=== PATIENT | male | born 1995 | race Caucasian/White ===

== ENCOUNTER 2017-02-21 11:52 | Inpatient (IN) | payer SELFPAY ==
[~2017-02-21] VITALS: Ht 177.8 cm; Wt 79.4 kg
[2017-02-21] MEDS ORDERED: IV NORMAL SALINE 1000ML BAG 1,000 ML IV SCH (12:31)
--- NOTE | 2017-02-21 12:32 | PHYS DOC ---
Adult General Chief Complaint Chief Complaint: NAUSEA/VOMITING/DIARRHA HPI HPI Patient is a 21 year old male who presents with nausea vomiting left sided abdominal pain. He states nausea started last night when he is at [employer] eating and then this morning he started vomiting again with left lower quadrant abdominal pain. He states this is exact same thing happen before when his diverticulitis flared up. He denies any history of surgeries. He denies any other past medical problems. He denies any allergies to meds. She denies any fevers chills. He is constant is located on his left side, nothing makes it better or worse. Review of Systems Review of Systems Constitutional: Denies fever or chills [] Eyes: Denies change in visual acuity, redness, or eye pain [] HENT: Denies nasal congestion or sore throat [] Respiratory: Denies cough or shortness of breath [] Cardiovascular: No additional information not addressed in HPI [] GI: Positive for abdominal pain, nausea, vomiting, Denies bloody stools or diarrhea [] : Denies dysuria or hematuria [] Musculoskeletal: Denies back pain or joint pain [] Integument: Denies rash or skin lesions [] Neurologic: Denies headache, focal weakness or sensory changes [] Endocrine: Denies polyuria or polydipsia [] Current Medications Current Medications Current Medications Medications (Trade) Dose Ordered Sig/Mahesh Start Time Stop Time Status Last Admin Dose Admin Info (Do NOT chart on this entry -- for MONITORING) 1 each PRN DAILY PRN 02/21/17 13:30 02/23/17 13:29 Iohexol (Omnipaque 240 Mg/ml) 50 ml 1X ONCE 02/21/17 13:30 02/21/17 13:31 DC 02/21/17 13:57 50 ML Iohexol (Omnipaque 300 Mg/ml) 75 ml 1X ONCE 02/21/17 13:30 02/21/17 13:31 DC 02/21/17 13:57 75 ML Morphine Sulfate 2 mg PRN Q15MIN PRN 02/21/17 12:45 02/22/17 12:44 02/21/17 14:12 2 MG Ondansetron HCl (Zofran) 4 mg 1X ONCE 02/21/17 14:45 02/21/17 14:46 DC 02/21/17 14:43 4 MG Sodium Chloride 1,000 ml @ 1,000 mls/hr Q1H 02/21/17 12:31 02/21/17 13:30 DC 02/21/17 12:47 1,000 MLS/HR Allergies Allergies Allergies Coded Allergies Type Severity Reaction Last Updated Verified No Known Drug Allergies 02/21/17 No Physical Exam Physical Exam Constitutional: Well developed, well nourished, no acute distress, non-toxic appearance. [] HENT: Normocephalic, atraumatic, bilateral external ears normal, oropharynx moist, no oral exudates, nose normal. [] Eyes: PERRLA, EOMI, conjunctiva normal, no discharge. [] Neck: Normal range of motion, no tenderness, supple, no stridor. [] Cardiovascular:Heart rate regular rhythm, no murmur [] Lungs & Thorax: Bilateral breath sounds clear to auscultation [] Abdomen: Bowel sounds hyperactive, soft, moderately tender palpation left upper and lower quadrant, no rebound or guarding, no masses, no pulsatile masses. [] Skin: Warm, dry, no erythema, no rash. [] Back: No tenderness, no CVA tenderness. [] Extremities: No tenderness, no cyanosis, no clubbing, ROM intact, no edema. [] Neurologic: Alert and oriented X 3, normal motor function, normal sensory function, no focal deficits noted. [] Psychologic: Affect normal, judgement normal, mood normal. [] Current Patient Data Vital Signs Vital Signs Date Time Temp Pulse Resp B/P (MAP) Pulse Ox O2 Delivery O2 Flow Rate FiO2 02/21/17 14:12 16 98 Room Air 02/21/17 14:07 62 133/73 (93) 02/21/17 12:10 98.9 98.9 Lab Values Laboratory Tests Test 02/21/17 12:28 02/21/17 14:21 White Blood Count 10.1 x10^3/uL (4.0-11.0) Red Blood Count 5.19 x10^6/uL (4.30-5.70) Hemoglobin 15.7 g/dL (13.0-17.5) Hematocrit 46.8 % (39.0-53.0) Mean Corpuscular Volume 90 fL (79-100) Mean Corpuscular Hemoglobin 30 pg (25-35) Mean Corpuscular Hemoglobin Concent 34 g/dL (31-37) Red Cell Distribution Width 13.0 % (11.5-14.5) Platelet Count 257 x10^3/uL (140-400) Neutrophils (%) (Auto) 76 % (31-73) H Lymphocytes (%) (Auto) 17 % (24-48) L Monocytes (%) (Auto) 6 % (0-9) Eosinophils (%) (Auto) 1 % (0-3) Basophils (%) (Auto) 1 % (0-3) Neutrophils # (Auto) 7.7 x10^3uL (1.8-7.7) Lymphocytes # (Auto) 1.7 x10^3/uL (1.0-4.8) Monocytes # (Auto) 0.6 x10^3/uL (0.0-1.1) Eosinophils # (Auto) 0.1 x10^3/uL (0.0-0.7) Basophils # (Auto) 0.0 x10^3/uL (0.0-0.2) Prothrombin Time 13.5 SEC (11.7-14.0) Prothrombin Time INR 1.1 (0.8-1.1) PTT 32 SEC (24-38) Sodium Level 140 mmol/L (136-145) Potassium Level 3.8 mmol/L (3.5-5.1) Chloride Level 104 mmol/L (98-107) Carbon Dioxide Level 29 mmol/L (21-32) Anion Gap 7 (6-14) Blood Urea Nitrogen 8 mg/dL (8-26) Creatinine 0.8 mg/dL (0.7-1.3) Estimated GFR (Cockcroft-Gault) 119.8 Glucose Level 93 mg/dL (70-99) Calcium Level 8.8 mg/dL (8.5-10.1) Total Bilirubin 1.1 mg/dL (0.2-1.0) H Direct Bilirubin 0.2 mg/dL (0.0-0.2) Aspartate Amino Transferase (AST) 15 U/L (15-37) Alanine Aminotransferase (ALT) 16 U/L (16-63) Alkaline Phosphatase 48 U/L (46-116) Creatine Kinase 121 U/L (39-308) Creatine Kinase MB (Mass) < 0.5 ng/mL (0.0-3.6) Creatine Kinase MB Relative Index % (0-4) Total Protein 7.4 g/dL (6.4-8.2) Albumin 4.1 g/dL (3.4-5.0) Lipase 88 U/L (73-393) Urine Collection Type Unknown Urine Color Yellow Urine Clarity Clear Urine pH 7.0 Urine Specific Bee[place] >=1.030 Urine Protein Negative mg/dL (NEG-TRACE) Urine Glucose (UA) Negative mg/dL (NEG) Urine Ketones (Stick) Trace mg/dL (NEG) Urine Blood Negative (NEG) Urine Nitrite Negative (NEG) Urine Bilirubin Negative (NEG) Urine Urobilinogen Dipstick 1.0 mg/dL (0.2 mg/dL) Urine Leukocyte Esterase Negative (NEG) Urine RBC Occ /HPF (0-2) Urine WBC 0 /HPF (0-4) Urine Squamous Epithelial Cells Occ /LPF Urine Bacteria 0 /HPF (0-FEW) Urine Mucus Mod /LPF Urine Opiates Screen Pos (NEG) Urine Methadone Screen Neg (NEG) Urine Barbiturates Neg (NEG) Urine Phencyclidine Screen Neg (NEG) Urine Amphetamine/Methamphetamine Neg (NEG) Urine Benzodiazepines Screen Neg (NEG) Urine Cocaine Screen Neg (NEG) Urine Cannabinoids Screen Pos (NEG) Urine Ethyl Alcohol Neg (NEG) Laboratory Tests 02/21/17 12:28 Laboratory Tests 02/21/17 12:28 EKG EKG [] Radiology/Procedures Radiology/Procedures [facility] [address] [place], [place] [id number] IMAGING REPORT Signed PATIENT: CHRISTY ENAMORADO ACCOUNT: [id number] : 1995 LOCATION: ER AGE: 21 SEX: M EXAM STATUS: REG ER ORD. PHYSICIAN: HAILEY MARTINEZ MD REASON: left sided abd pain PROCEDURE: CT ABD PELV W/ORAL&IV CONTRAST Examination: CT of the abdomen and pelvis with oral and IV contrast History: History of left-sided abdominal pain. Comparison: None available Technique: Axial CT images of the abdomen pelvis were performed with oral and IV contrast. Coronal and sagittal reformats was performed PQRS Compliance Statement: One or more of the following individualized dose reduction techniques were utilized for this examination: 1. Automated exposure control 2. Adjustment of the mA and/or kV according to patient size 3. Use of iterative reconstruction technique Findings: The visualized bibasal lungs grossly appears unremarkable. No evidence of free air identified in the abdomen. The visualized liver, spleen, adrenals grossly appears unremarkable. The gallbladder is mildly distended. The stomach is mildly distended. The visualized pancreas grossly appears unremarkable. The small bowel is nondilated. The appendix is not clearly identified however no evidence of inflammatory fat stranding identified in the right lower quadrant around the cecum. Feces and gas noted in the colon. There is minimal questionable stranding identified about the distal sigmoid colon region. The urinary bladder is mildly distended. The bilateral kidneys enhance symmetrically. The caliber of the aorta grossly appears unremarkable. No evidence of lytic bony destructive lesion. Impression: 1. Mild questionable fat stranding identified about the sigmoid colon could be nondistention or mild colitis. DICTATED and SIGNED BY: HILDA YEUNG MD DATE: 02/21/17 7827 CC: HAILEY MARTINEZ MD; NO PCP ~ Impressions: Nausea vomiting Abdominal pain Course & Med Decision Making Course & Med Decision Making Pertinent Labs and Imaging studies reviewed. (See chart for details) Labs do not show any acute abnormality's. On CT scan shows mild colitis of the sigmoid colon. We'll start Cipro Flagyl and admit for uncontrolled nausea vomiting and abdominal pain. Patient is being admitted to the hospitalist in stable condition this time. Dragon Disclaimer Dragon Disclaimer This electronic medical record was generated, in whole or in part, using a voice recognition dictation system. Departure Departure Impression: Primary Impression: Abdominal pain Disposition: ADMITTED INPATIENT Admitting Physician: Janeth Shetty Condition: STABLE Referrals: NO PCP (PCP) Problem Qualifiers Primary Impression: Abdominal pain Abdominal location: unspecified location Qualified Codes: R10.9 - Unspecified abdominal pain HAIELY MARTINEZ MD Feb 21, 2017 12:32
[2017-02-21] MEDS ORDERED: ONDANSETRON PF 4 MG/2 ML VIAL. IV ONE ×2 (12:45→14:45)
[2017-02-21] MEDS: MORPHINE SULFATE 4 MG/ML DISP.SYRIN. IV/SQ PRN ×2 (12:47→14:12)
[2017-02-21 12:48] LABS: BASO % 1 % (0-3); EOS % 1 % (0-3); HEMATOCRIT 46.8 % (39.0-53.0); HEMOGLOBIN 15.7 g/dL (13.0-17.5); LYMPH # 1.7 x10^3/uL (1.0-4.8); LYMPH % 17 % (24-48); MEAN CORPUSCULAR HEMOGLOBIN 30 pg (25-35); MEAN CORPUSCULAR HGB CONC 34 g/dL (31-37); MEAN CORPUSCULAR VOLUME 90 fL (79-100); MONO % 6 % (0-9); NEUT % 76 % (31-73); PLATELET COUNT 257 x10^3/uL (140-400); RED BLOOD COUNT 5.19 x10^6/uL (4.30-5.70); WHITE BLOOD COUNT 10.1 x10^3/uL (4.0-11.0)
[2017-02-21 12:54] LABS: CALCIUM 8.8 mg/dL (8.5-10.1); CREATININE 0.8 mg/dL (0.7-1.3); GFR 119.8; POTASSIUM 3.8 mmol/L (3.5-5.1)
[2017-02-21 12:57] LABS: INR 1.1 (0.8-1.1); PROTHROMBIN TIME PATIENT 13.5 SEC (11.7-14.0)
[2017-02-21 13:01] LABS: ALBUMIN 4.1 g/dL (3.4-5.0); DIRECT BILIRUBIN 0.2 mg/dL (0.0-0.2); TOTAL BILIRUBIN 1.1 mg/dL (0.2-1.0); TOTAL PROTEIN 7.4 g/dL (6.4-8.2)
[2017-02-21 13:09] LABS: CKMB MASS < 0.5 ng/mL (0.0-3.6); CREATINE KINASE 121 U/L (39-308)
[2017-02-21] MEDS ORDERED: IOHEXOL 240 MG/ML 50ML VIAL. PO ONE (13:30)
[2017-02-21] MEDS ORDERED: IOHEXOL 300 MG/ML 75 ML VIAL IV ONE (13:30)
[2017-02-21] MEDS ORDERED: CONTRAST GIVEN MC PRN (13:30)
--- NOTE | 2017-02-21 14:24 | RAD ---
Examination: CT of the abdomen and pelvis with oral and IV contrast History: History of left-sided abdominal pain. Comparison: None available Technique: Axial CT images of the abdomen pelvis were performed with oral and IV contrast. Coronal and sagittal reformats was performed PQRS Compliance Statement: One or more of the following individualized dose reduction techniques were utilized for this examination: 1. Automated exposure control 2. Adjustment of the mA and/or kV according to patient size 3. Use of iterative reconstruction technique Findings: The visualized bibasal lungs grossly appears unremarkable. No evidence of free air identified in the abdomen. The visualized liver, spleen, adrenals grossly appears unremarkable. The gallbladder is mildly distended. The stomach is mildly distended. The visualized pancreas grossly appears unremarkable. The small bowel is nondilated. The appendix is not clearly identified however no evidence of inflammatory fat stranding identified in the right lower quadrant around the cecum. Feces and gas noted in the colon. There is minimal questionable stranding identified about the distal sigmoid colon region. The urinary bladder is mildly distended. The bilateral kidneys enhance symmetrically. The caliber of the aorta grossly appears unremarkable. No evidence of lytic bony destructive lesion. Impression: 1. Mild questionable fat stranding identified about the sigmoid colon could be nondistention or mild colitis.
[2017-02-21 14:28] LABS: BILIRUBIN,URINE NEGATIVE (NEG); GLUCOSE,URINE NEGATIVE (NEG); NITRITE,URINE NEGATIVE (NEG); PROTEIN,URINE NEGATIVE (NEG-TRACE)
[2017-02-21 14:35] LABS: BACTERIA,URINE 0 /HPF (0-FEW); RBC,URINE OCC /HPF (0-2); SQUAMOUS EPITHELIAL CELL,UR OCC /LPF; WBC,URINE 0 /HPF (0-4)
[2017-02-21 14:38] LABS: BARBITURATES NEG (NEG); BENZODIAZEPINES NEG (NEG); CANNABINOIDS POS (NEG); COCAINE NEG (NEG); METHADONE NEG (NEG); OPIATES POS (NEG); PHENCYCLIDINE NEG (NEG)
[2017-02-21] MEDS ORDERED: CIPROFLOXACIN 400MG PREMIX 200 ML IV ONE (15:15)
[2017-02-21 16:31] VITALS: BP 113/61
[2017-02-21] MEDS ORDERED: hydrALAZINE 20 MG/ML VIAL. IVP PRN (16:45)
[2017-02-21] MEDS ORDERED: ACETAMINOPHEN 325 MG TABLET. PO PRN (16:45)
[2017-02-21] MEDS ORDERED: MORPHINE SULFATE 2 MG/ML DISP.SYRIN. IV PRN (16:45)
[2017-02-21] MEDS ORDERED: traMADol 50 MG TABLET PO PRN (16:45)
[2017-02-21] MEDS ORDERED: DOCUSATE SODIUM 100 MG CAPSULE. PO PRN (16:45)
--- NOTE | 2017-02-21 16:51 | PDOC1 ---
History and Physical Date of Admission Date of Admission 02/21/17 Identification/Chief Complaint Chief Complaint abd pain Problems: Source Source: Chart review, Patient History of Present Illness History of Present Illness Patient is a 21 year old male who presents with nausea vomiting left sided abdominal pain todaY. Pt is living in [facility] , coming here to visit his gf. He had similar abd pain before. The pain is located at LUQ, constant, 9/10, no radiation. He also had Nausea started from last night after eating some [employer] and then vomited today, non bloody or greenish. no diarrhea or constipation. takes NSADS sometime. He said he also has severe acid reflux, but doesnot like to go to [facility] or takes any meds for it. Had EGD done for this similar LUQ pain before, was told neg. He also was diagnosed with diverticulitis before, with similar LUQ pain, started 2 years ago, last time was last year. no fever, chills, but has some cough with yellowish sputum today, with sore throat, no runny nose, denies sick contact. 1PPD, [address] showed ? sigmoid colitis Past Medical History Past Medical History diverticulitis Past Surgical History Past Surgical History: No pertinent history Family History Family History: Hypertension Social History Smoke: 1 pack per day ALCOHOL: heavy Drugs: Marijuana Current Problem List Problem List Problems Medical Problems: (1) Abdominal pain Status: Acute Current Medications Current Medications Current Medications Medications (Trade) Dose Ordered Sig/Mahesh Start Time Stop Time Status Last Admin Dose Admin Ciprofloxacin/ Dextrose 200 ml @ 200 mls/hr 1X ONCE 02/21/17 15:15 02/21/17 16:14 DC Info (Do NOT chart on this entry -- for MONITORING) 1 each PRN DAILY PRN 02/21/17 13:30 02/23/17 13:29 Iohexol (Omnipaque 240 Mg/ml) 50 ml 1X ONCE 02/21/17 13:30 02/21/17 13:31 DC 02/21/17 13:57 50 ML Iohexol (Omnipaque 300 Mg/ml) 75 ml 1X ONCE 02/21/17 13:30 02/21/17 13:31 DC 02/21/17 13:57 75 ML Metronidazole 100 ml @ 100 mls/hr 1X ONCE 02/21/17 15:15 02/21/17 16:14 DC Morphine Sulfate 2 mg PRN Q15MIN PRN 02/21/17 12:45 02/22/17 12:44 02/21/17 14:12 2 MG Ondansetron HCl (Zofran) 4 mg 1X ONCE 02/21/17 14:45 02/21/17 14:46 DC 02/21/17 14:43 4 MG Sodium Chloride 1,000 ml @ 1,000 mls/hr Q1H 02/21/17 12:31 02/21/17 13:30 DC 02/21/17 12:47 1,000 MLS/HR Allergies Allergies Allergies Coded Allergies Type Severity Reaction Last Updated Verified No Known Drug Allergies 02/21/17 No ROS Review of System CONSTITUTIONAL: No fever or chills EYES: No recent changes SKIN: No rash or itching CARDIOVASCULAR: No chest pain, syncope, palpitations, or edema RESPIRATORY: No SOB or cough GASTROINTESTINAL: No nausea, vomiting or abdominal pain NEUROLOGICAL: No headaches or weakness ENDOCRINE: No cold or heat intolerance GENITOURINARY: No urgency or frequency of urination MUSCULOSKELETAL: No back pain or joint pain LYMPHATICS: No enlarged lymph nodes PSYCHIATRIC: No anxiety or depression Physical Exam Physical Exam GEN.: No apparent distress. Alert and oriented. HEENT: Head is normocephalic, atraumatic NECK: Supple. LUNGS: Clear to auscultation. HEART: RRR, S1, S2 present. Peripheral pulses intact ABDOMEN: Soft Positive bowel sounds. LUQ moderate tenderness, no guarding or rebound. EXTREMITIES: Without any cyanosis. NEUROLOGIC: Normal speech, normal tone PSYCHIATRIC: Normal affect, normal mood. SKIN: No ulcerations Vitals Vitals Vital Signs Date Time Temp Pulse Resp B/P (MAP) Pulse Ox O2 Delivery O2 Flow Rate FiO2 02/21/17 15:07 66 132/83 (99) 96 Room Air 02/21/17 14:12 16 02/21/17 12:10 98.9 98.9 Labs Labs Laboratory Tests Test 02/21/17 12:28 02/21/17 14:21 White Blood Count 10.1 x10^3/uL (4.0-11.0) Red Blood Count 5.19 x10^6/uL (4.30-5.70) Hemoglobin 15.7 g/dL (13.0-17.5) Hematocrit 46.8 % (39.0-53.0) Mean Corpuscular Volume 90 fL (79-100) Mean Corpuscular Hemoglobin 30 pg (25-35) Mean Corpuscular Hemoglobin Concent 34 g/dL (31-37) Red Cell Distribution Width 13.0 % (11.5-14.5) Platelet Count 257 x10^3/uL (140-400) Neutrophils (%) (Auto) 76 % (31-73) Lymphocytes (%) (Auto) 17 % (24-48) Monocytes (%) (Auto) 6 % (0-9) Eosinophils (%) (Auto) 1 % (0-3) Basophils (%) (Auto) 1 % (0-3) Neutrophils # (Auto) 7.7 x10^3uL (1.8-7.7) Lymphocytes # (Auto) 1.7 x10^3/uL (1.0-4.8) Monocytes # (Auto) 0.6 x10^3/uL (0.0-1.1) Eosinophils # (Auto) 0.1 x10^3/uL (0.0-0.7) Basophils # (Auto) 0.0 x10^3/uL (0.0-0.2) Prothrombin Time 13.5 SEC (11.7-14.0) Prothromb Time International Ratio 1.1 (0.8-1.1) Activated Partial Thromboplast Time 32 SEC (24-38) Sodium Level 140 mmol/L (136-145) Potassium Level 3.8 mmol/L (3.5-5.1) Chloride Level 104 mmol/L (98-107) Carbon Dioxide Level 29 mmol/L (21-32) Anion Gap 7 (6-14) Blood Urea Nitrogen 8 mg/dL (8-26) Creatinine 0.8 mg/dL (0.7-1.3) Estimated GFR (Cockcroft-Gault) 119.8 Glucose Level 93 mg/dL (70-99) Calcium Level 8.8 mg/dL (8.5-10.1) Total Bilirubin 1.1 mg/dL (0.2-1.0) Direct Bilirubin 0.2 mg/dL (0.0-0.2) Aspartate Amino Transf (AST/SGOT) 15 U/L (15-37) Alanine Aminotransferase (ALT/SGPT) 16 U/L (16-63) Alkaline Phosphatase 48 U/L (46-116) Creatine Kinase 121 U/L (39-308) Creatine Kinase MB (Mass) < 0.5 ng/mL (0.0-3.6) Creatine Kinase MB Relative Index % (0-4) Total Protein 7.4 g/dL (6.4-8.2) Albumin 4.1 g/dL (3.4-5.0) Lipase 88 U/L (73-393) Urine Collection Type Unknown Urine Color Yellow Urine Clarity Clear Urine pH 7.0 Urine Specific [place] >=1.030 Urine Protein Negative mg/dL (NEG-TRACE) Urine Glucose (UA) Negative mg/dL (NEG) Urine Ketones (Stick) Trace mg/dL (NEG) Urine Blood Negative (NEG) Urine Nitrite Negative (NEG) Urine Bilirubin Negative (NEG) Urine Urobilinogen Dipstick 1.0 mg/dL (0.2 mg/dL) Urine Leukocyte Esterase Negative (NEG) Urine RBC Occ /HPF (0-2) Urine WBC 0 /HPF (0-4) Urine Squamous Epithelial Cells Occ /LPF Urine Bacteria 0 /HPF (0-FEW) Urine Mucus Mod /LPF Urine Opiates Screen Pos (NEG) Urine Methadone Screen Neg (NEG) Urine Barbiturates Neg (NEG) Urine Phencyclidine Screen Neg (NEG) Urine Amphetamine/Methamphetamine Neg (NEG) Urine Benzodiazepines Screen Neg (NEG) Urine Cocaine Screen Neg (NEG) Urine Cannabinoids Screen Pos (NEG) Urine Ethyl Alcohol Neg (NEG) Laboratory Tests Test 02/21/17 12:28 02/21/17 14:21 White Blood Count 10.1 x10^3/uL (4.0-11.0) Red Blood Count 5.19 x10^6/uL (4.30-5.70) Hemoglobin 15.7 g/dL (13.0-17.5) Hematocrit 46.8 % (39.0-53.0) Mean Corpuscular Volume 90 fL (79-100) Mean Corpuscular Hemoglobin 30 pg (25-35) Mean Corpuscular Hemoglobin Concent 34 g/dL (31-37) Red Cell Distribution Width 13.0 % (11.5-14.5) Platelet Count 257 x10^3/uL (140-400) Neutrophils (%) (Auto) 76 % (31-73) Lymphocytes (%) (Auto) 17 % (24-48) Monocytes (%) (Auto) 6 % (0-9) Eosinophils (%) (Auto) 1 % (0-3) Basophils (%) (Auto) 1 % (0-3) Neutrophils # (Auto) 7.7 x10^3uL (1.8-7.7) Lymphocytes # (Auto) 1.7 x10^3/uL (1.0-4.8) Monocytes # (Auto) 0.6 x10^3/uL (0.0-1.1) Eosinophils # (Auto) 0.1 x10^3/uL (0.0-0.7) Basophils # (Auto) 0.0 x10^3/uL (0.0-0.2) Prothrombin Time 13.5 SEC (11.7-14.0) Prothromb Time International Ratio 1.1 (0.8-1.1) Activated Partial Thromboplast Time 32 SEC (24-38) Sodium Level 140 mmol/L (136-145) Potassium Level 3.8 mmol/L (3.5-5.1) Chloride Level 104 mmol/L (98-107) Carbon Dioxide Level 29 mmol/L (21-32) Anion Gap 7 (6-14) Blood Urea Nitrogen 8 mg/dL (8-26) Creatinine 0.8 mg/dL (0.7-1.3) Estimated GFR (Cockcroft-Gault) 119.8 Glucose Level 93 mg/dL (70-99) Calcium Level 8.8 mg/dL (8.5-10.1) Total Bilirubin 1.1 mg/dL (0.2-1.0) Direct Bilirubin 0.2 mg/dL (0.0-0.2) Aspartate Amino Transf (AST/SGOT) 15 U/L (15-37) Alanine Aminotransferase (ALT/SGPT) 16 U/L (16-63) Alkaline Phosphatase 48 U/L (46-116) Creatine Kinase 121 U/L (39-308) Creatine Kinase MB (Mass) < 0.5 ng/mL (0.0-3.6) Creatine Kinase MB Relative Index % (0-4) Total Protein 7.4 g/dL (6.4-8.2) Albumin 4.1 g/dL (3.4-5.0) Lipase 88 U/L (73-393) Urine Collection Type Unknown Urine Color Yellow Urine Clarity Clear Urine pH 7.0 Urine Specific [place]ifer >=1.030 Urine Protein Negative mg/dL (NEG-TRACE) Urine Glucose (UA) Negative mg/dL (NEG) Urine Ketones (Stick) Trace mg/dL (NEG) Urine Blood Negative (NEG) Urine Nitrite Negative (NEG) Urine Bilirubin Negative (NEG) Urine Urobilinogen Dipstick 1.0 mg/dL (0.2 mg/dL) Urine Leukocyte Esterase Negative (NEG) Urine RBC Occ /HPF (0-2) Urine WBC 0 /HPF (0-4) Urine Squamous Epithelial Cells Occ /LPF Urine Bacteria 0 /HPF (0-FEW) Urine Mucus Mod /LPF Urine Opiates Screen Pos (NEG) Urine Methadone Screen Neg (NEG) Urine Barbiturates Neg (NEG) Urine Phencyclidine Screen Neg (NEG) Urine Amphetamine/Methamphetamine Neg (NEG) Urine Benzodiazepines Screen Neg (NEG) Urine Cocaine Screen Neg (NEG) Urine Cannabinoids Screen Pos (NEG) Urine Ethyl Alcohol Neg (NEG) VTE Prophylaxis Ordered VTE Prophylaxis Devices: Yes VTE Pharmacological Prophylaxi: Yes Assessment/Plan Assessment/Plan LUQ pain, 2/2 gastris vs. ulcer vs. GERD CT showed ? sigmoid colitis, less likely the reason causing this abd pain h/o diverticulitis drug abuse with marijuana heavy drinker tobaccoism GERD plan: gi consult add protonix daily cont cipro, flagyl for now, wean soon ivf, clear liquid for now pain control vitb1, FA daily, ativan prn dvt ppx BRENNAN GAONA MD Feb 21, 2017 16:50
[2017-02-21] MEDS: HYDROcodone/APAP 5/325MG 1 TAB TABLET PO PRN ×2 (17:45→22:07)
[2017-02-21] MEDS ORDERED: ALBUTEROL SULFATE 2.5 MG/3 ML NEBU. NEB PRN (18:30)
[2017-02-21] MEDS ORDERED: guaiFENesin ORAL 200 MG/10 ML LIQUID. PO PRN (18:30)
[2017-02-21 19:00] VITALS: BP 103/56
[2017-02-21] MEDS: THIAMINE 100 MG TABLET. PO SCH (20:59)
[2017-02-21] MEDS: PANTOPRAZOLE 40 MG TABLET.DR. PO SCH (20:59)
[2017-02-21] MEDS: FOLIC ACID 1 MG TABLET. PO SCH (20:59)
[2017-02-21] MEDS: IV NORMAL SALINE 1000ML BAG 1,000 ML IV SCH (21:01)
[2017-02-21 23:00] VITALS: BP 102/48
[2017-02-21] MEDS: MORPHINE SULFATE 4 MG/ML DISP.SYRIN. IV PRN (23:31)
[2017-02-22 03:00] VITALS: BP 97/47
[2017-02-22 05:52] LABS: BASO % 1 % (0-3); EOS % 4 % (0-3); HEMATOCRIT 45.5 % (39.0-53.0); HEMOGLOBIN 14.9 g/dL (13.0-17.5); LYMPH % 44 % (24-48); MEAN CORPUSCULAR HEMOGLOBIN 30 pg (25-35); MEAN CORPUSCULAR HGB CONC 33 g/dL (31-37); MEAN CORPUSCULAR VOLUME 91 fL (79-100); MONO % 10 % (0-9); NEUT % 42 % (31-73); PLATELET COUNT 241 x10^3/uL (140-400); RED BLOOD COUNT 4.98 x10^6/uL (4.30-5.70); RED CELL DISTRIBUTION WIDTH 13.2 % (11.5-14.5); WHITE BLOOD COUNT 6.7 x10^3/uL (4.0-11.0)
[2017-02-22 06:51] LABS: CALCIUM 8.3 mg/dL (8.5-10.1); CREATININE 0.9 mg/dL (0.7-1.3); GFR 104.6; POTASSIUM 4.3 mmol/L (3.5-5.1)
[2017-02-22 07:00] VITALS: BP 100/63
[2017-02-22] MEDS: ENOXAPARIN 40 MG/0.4 ML SYRINGE. SQ SCH (08:00)
[2017-02-22] MEDS: IV NORMAL SALINE 1000ML BAG 1,000 ML IV SCH ×3 (08:15→23:00)
[2017-02-22] MEDS: FOLIC ACID 1 MG TABLET. PO SCH (08:17)
[2017-02-22] MEDS: THIAMINE 100 MG TABLET. PO SCH (08:17)
[2017-02-22] MEDS: PANTOPRAZOLE 40 MG TABLET.DR. PO SCH (08:17)
[2017-02-22] MEDS: MORPHINE SULFATE 4 MG/ML DISP.SYRIN. IV PRN ×4 (08:20→21:43)
[2017-02-22] MEDS: ONDANSETRON PF 4 MG/2 ML VIAL. IV PRN ×2 (08:20→18:24)
[2017-02-22] MEDS: CIPROFLOXACIN 400MG PREMIX 200 ML IV SCH ×3 (08:21→22:32)
--- NOTE | 2017-02-22 08:38 | RAD ---
EXAM: Chest one view. HISTORY: Cough. COMPARISON: None. FINDINGS: A frontal view of the chest is obtained. There are no confluent infiltrates. There is no pneumothorax or pleural effusion. The heart is not enlarged. IMPRESSION: 1. No confluent infiltrates.
[2017-02-22] MEDS: HYDROcodone/APAP 5/325MG 1 TAB TABLET PO PRN ×3 (09:33→20:22)
--- NOTE | 2017-02-22 10:39 | PDOC2 ---
GI CONSULT Reason For Consult: Abd pain HPI: HPI: 21 y/o male w/ recurrent GI issues. Has been hospitalized twice previously, reports h/o SBO in [place] (required NG, surgery recommended but he refused ) and h/o diverticulitis. Has had previous EGD (last year he thinks), not sure of findings (although thinks "Vicodin messed me up.") Has also had gallbladder eval w/ US and probably PIPIDA (recalls nuclear med scan). Has chronic left- sided abd pain, comes and goes, worse w/ cold weather, sunflower sees, junk food , and spicy foods. Also intermittent n/v (food, bile). More recently has had daily reflux, untreated because he doesn't really like to take meds. Alternating bowel habits although recently has been having 1 stool daily. Had blood mixed w/ stools for 2 days 1 month ago. No regular NSAID use. Lives in this area, travels for work. Recently treated w/ Keflex and another antibiotic for left index finger injury, took atbx for a couple days and stopped. Worsening left-sided pain w/ n/v since Wednesday, no precipitating events. (Chart indicates ate at [employer] - apparently ate there after was feeling bad.) CT w/ mild questionable fat stranding identified about the sigmoid colon could be nondistention or mild colitis. On IV Cipro and Flagyl, also PO PPI. Vomited earlier after drinking broth. Ongoing left-sided pain. PMH: PMH: diverticulitis, SBO, right wrist surgery w/ hardware FH: Family History: Other (father - stomach issues, grandmother - GB disease, sister - lupus) Social History: Smoke: 1 pack per day ALCOHOL: other (about 1 beer daily) Drugs: Marijuana (4 times yearly) ROS: GEN: Denies fevers, chills, sweats HEENT: Denies blurred vision, sore throat CV: Denies chest pain RESP: Denies shortness of air, cough GI: Per HPI : Denies hematuria, dysuria ENDO: Denies weight changes NEURO: Denies confusion, dizziness MSK: Denies weakness, joint pain/swelling SKIN: Denies jaundice, pruritus Vitals: Vitals: Vital Signs Date Time Temp Pulse Resp B/P (MAP) Pulse Ox O2 Delivery O2 Flow Rate FiO2 02/22/17 09:33 16 Room Air 02/22/17 07:00 97.7 58 100/63 (75) 97 97.7 Labs: Labs: Laboratory Tests Test 02/21/17 12:28 02/21/17 14:21 02/22/17 05:20 White Blood Count 10.1 x10^3/uL (4.0-11.0) 6.7 x10^3/uL (4.0-11.0) Red Blood Count 5.19 x10^6/uL (4.30-5.70) 4.98 x10^6/uL (4.30-5.70) Hemoglobin 15.7 g/dL (13.0-17.5) 14.9 g/dL (13.0-17.5) Hematocrit 46.8 % (39.0-53.0) 45.5 % (39.0-53.0) Mean Corpuscular Volume 90 fL (79-100) 91 fL (79-100) Mean Corpuscular Hemoglobin 30 pg (25-35) 30 pg (25-35) Mean Corpuscular Hemoglobin Concent 34 g/dL (31-37) 33 g/dL (31-37) Red Cell Distribution Width 13.0 % (11.5-14.5) 13.2 % (11.5-14.5) Platelet Count 257 x10^3/uL (140-400) 241 x10^3/uL (140-400) Neutrophils (%) (Auto) 76 % (31-73) 42 % (31-73) Lymphocytes (%) (Auto) 17 % (24-48) 44 % (24-48) Monocytes (%) (Auto) 6 % (0-9) 10 % (0-9) Eosinophils (%) (Auto) 1 % (0-3) 4 % (0-3) Basophils (%) (Auto) 1 % (0-3) 1 % (0-3) Neutrophils # (Auto) 7.7 x10^3uL (1.8-7.7) 2.8 x10^3uL (1.8-7.7) Lymphocytes # (Auto) 1.7 x10^3/uL (1.0-4.8) 3.0 x10^3/uL (1.0-4.8) Monocytes # (Auto) 0.6 x10^3/uL (0.0-1.1) 0.6 x10^3/uL (0.0-1.1) Eosinophils # (Auto) 0.1 x10^3/uL (0.0-0.7) 0.2 x10^3/uL (0.0-0.7) Basophils # (Auto) 0.0 x10^3/uL (0.0-0.2) 0.0 x10^3/uL (0.0-0.2) Prothrombin Time 13.5 SEC (11.7-14.0) Prothromb Time International Ratio 1.1 (0.8-1.1) Activated Partial Thromboplast Time 32 SEC (24-38) Sodium Level 140 mmol/L (136-145) 142 mmol/L (136-145) Potassium Level 3.8 mmol/L (3.5-5.1) 4.3 mmol/L (3.5-5.1) Chloride Level 104 mmol/L (98-107) 107 mmol/L (98-107) Carbon Dioxide Level 29 mmol/L (21-32) 29 mmol/L (21-32) Anion Gap 7 (6-14) 6 (6-14) Blood Urea Nitrogen 8 mg/dL (8-26) 7 mg/dL (8-26) Creatinine 0.8 mg/dL (0.7-1.3) 0.9 mg/dL (0.7-1.3) Estimated GFR (Cockcroft-Gault) 119.8 104.6 Glucose Level 93 mg/dL (70-99) 86 mg/dL (70-99) Calcium Level 8.8 mg/dL (8.5-10.1) 8.3 mg/dL (8.5-10.1) Total Bilirubin 1.1 mg/dL (0.2-1.0) Direct Bilirubin 0.2 mg/dL (0.0-0.2) Aspartate Amino Transf (AST/SGOT) 15 U/L (15-37) Alanine Aminotransferase (ALT/SGPT) 16 U/L (16-63) Alkaline Phosphatase 48 U/L (46-116) Creatine Kinase 121 U/L (39-308) Creatine Kinase MB (Mass) < 0.5 ng/mL (0.0-3.6) Creatine Kinase MB Relative Index % (0-4) Total Protein 7.4 g/dL (6.4-8.2) Albumin 4.1 g/dL (3.4-5.0) Lipase 88 U/L (73-393) Urine Collection Type Unknown Urine Color Yellow Urine Clarity Clear Urine pH 7.0 Urine Specific [place] >=1.030 Urine Protein Negative mg/dL (NEG-TRACE) Urine Glucose (UA) Negative mg/dL (NEG) Urine Ketones (Stick) Trace mg/dL (NEG) Urine Blood Negative (NEG) Urine Nitrite Negative (NEG) Urine Bilirubin Negative (NEG) Urine Urobilinogen Dipstick 1.0 mg/dL (0.2 mg/dL) Urine Leukocyte Esterase Negative (NEG) Urine RBC Occ /HPF (0-2) Urine WBC 0 /HPF (0-4) Urine Squamous Epithelial Cells Occ /LPF Urine Bacteria 0 /HPF (0-FEW) Urine Mucus Mod /LPF Urine Opiates Screen Pos (NEG) Urine Methadone Screen Neg (NEG) Urine Barbiturates Neg (NEG) Urine Phencyclidine Screen Neg (NEG) Urine Amphetamine/Methamphetamine Neg (NEG) Urine Benzodiazepines Screen Neg (NEG) Urine Cocaine Screen Neg (NEG) Urine Cannabinoids Screen Pos (NEG) Urine Ethyl Alcohol Neg (NEG) Allergies: Coded Allergies: tramadol (Verified Adverse Reaction, Intermediate, Unknown, 02/21/17) patient states tramadol makes him angry and combative. Medications: Current Medications Medications (Trade) Dose Ordered Sig/Mahesh Route PRN Reason Start Time Stop Time Status Last Admin Dose Admin Morphine Sulfate 2 mg PRN Q15MIN PRN IV/SQ PAIN GREATER THAN 3/10 02/21/17 12:45 02/21/17 23:17 DC 02/21/17 14:12 Sodium Chloride 1,000 ml @ 1,000 mls/hr Q1H IV 02/21/17 12:31 02/21/17 13:30 DC 02/21/17 12:47 Ondansetron HCl (Zofran) 4 mg 1X ONCE IV 02/21/17 12:45 02/21/17 12:46 DC 02/21/17 12:46 Iohexol (Omnipaque 300 Mg/ml) 75 ml 1X ONCE IV 02/21/17 13:30 02/21/17 13:31 DC 02/21/17 13:57 Iohexol (Omnipaque 240 Mg/ml) 50 ml 1X ONCE PO 02/21/17 13:30 02/21/17 13:31 DC 02/21/17 13:57 Ondansetron HCl (Zofran) 4 mg 1X ONCE IV 02/21/17 14:45 02/21/17 14:46 DC 02/21/17 14:43 Ciprofloxacin/ Dextrose 200 ml @ 200 mls/hr Q12HR IV 02/21/17 21:00 02/22/17 08:21 Ciprofloxacin/ Dextrose 200 ml @ 200 mls/hr 1X ONCE IV 02/21/17 15:15 02/21/17 16:14 DC 02/21/17 19:16 Metronidazole 100 ml @ 100 mls/hr BID IV 02/21/17 18:00 02/21/17 21:00 Ondansetron HCl (Zofran) 4 mg PRN Q6HRS PRN IV NAUSEA/VOMITING 02/21/17 16:45 02/22/17 08:20 Morphine Sulfate 2 mg PRN Q2HR PRN IV PAIN 02/21/17 16:45 02/21/17 23:17 DC 02/21/17 19:53 Pantoprazole Sodium (Protonix) 40 mg DAILYAC PO 02/21/17 17:15 02/22/17 08:17 Acetaminophen/ Hydrocodone Bitart (Lortab 5/325) 1 tab PRN Q4HRS PRN PO PAIN 02/21/17 16:45 02/22/17 09:33 Sodium Chloride 1,000 ml @ 100 mls/hr Q10H IV 02/21/17 17:00 02/22/17 09:34 Folic Acid (Folic Acid) 1 mg DAILY PO 02/21/17 18:00 02/22/17 08:17 Thiamine Mononitrate (Vitamin B-1) 100 mg DAILY PO 02/21/17 18:00 02/22/17 08:17 Guaifenesin (Robitussin) 200 mg PRN Q4HRS PRN PO COUGH 02/21/17 18:30 02/22/17 09:33 Morphine Sulfate 2 mg PRN Q2HR PRN IV PAIN 02/21/17 23:30 11/6/17 08:20 Imaging: Imaging: CT A/P w/ oral and IV contrast Findings: The visualized bibasal lungs grossly appears unremarkable. No evidence of free air identified in the abdomen. The visualized liver, spleen, adrenals grossly appears unremarkable. The gallbladder is mildly distended. The stomach is mildly distended. The visualized pancreas grossly appears unremarkable. The small bowel is nondilated. The appendix is not clearly identified however no evidence of inflammatory fat stranding identified in the right lower quadrant around the cecum. Feces and gas noted in the colon. There is minimal questionable stranding identified about the distal sigmoid colon region. The urinary bladder is mildly distended. The bilateral kidneys enhance symmetrically. The caliber of the aorta grossly appears unremarkable. No evidence of lytic bony destructive lesion. Impression: 1. Mild questionable fat stranding identified about the sigmoid colon could be nondistention or mild colitis. CXR IMPRESSION: 1. No confluent infiltrates. PE: GEN: NAD HEENT: Atraumatic, PERRL LUNGS: CTAB HEART: RRR ABD: NABS, S/ND, LUQ TO LLQ tender to light palpation EXTREMITY: left index finger swollen SKIN: No rashes, no jaundice NEURO/PSYCH: A & O 3 A/P: A/P: Chronic left-sided abd pain, intermittent n/v -aggravated by food and weather, worse over the weekend -describes previously normal GB testing, no previous colonoscopy Acid reflux -more recent onset, untreated -recalls previous EGD, unsure of results -on PPI here H/o SBO, ?"diverticulitis" Irregular bowel habits - currently controlled H/o hematochezia -one month ago, resolved Abnormal CT -questionable sigmoid colitis/nondistention, on IV atbx -- Seems chronic GI issues w/ previous evaluation at other facilities (can name [place]). ?etiology of previous SBO Agree w/ PPI. Significant left-sided tenderness on exam. Continue atbx for now, will review w/ Dr. Dickson. YOEL HINDS Feb 22, 2017 10:39
[2017-02-22 11:00] VITALS: BP 94/51
[2017-02-22] MEDS ORDERED: PROCHLORPERAZINE 10 MG/2 ML VIAL. IV PRN (11:00)
--- NOTE | 2017-02-22 11:40 | PDOC ---
PROGRESS NOTES Chief Complaint Chief Complaint LUQ pain, 2/2 gastris vs. ulcer vs. GERD CT showed ? 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 Dw GI - more complicated hx, prev tests including EGD etc in outside PLAN: Follow gI recs COnt iVF COnt liquid diet for now, not ready to upgrade Add compazine 10 mg iV q 6 prn LAbs look ok Provided him a copy of his CT scan Vitals Vitals Vital Signs Date Time Temp Pulse Resp B/P (MAP) Pulse Ox O2 Delivery O2 Flow Rate FiO2 02/22/17 11:17 16 Room Air 02/22/17 07:00 97.7 58 100/63 (75) 97 97.7 Physical Exam General: Alert, Oriented X3, Cooperative Heart: Regular rate, Normal S1, Normal S2 Lungs: Clear Abdomen: Soft, No tenderness, No hepatosplenomegaly, Other (tender left side no guarding) Extremities: No clubbing, No cyanosis Skin: No rashes, No breakdown Labs LABS Laboratory Tests Test 02/21/17 12:28 02/21/17 14:21 02/22/17 05:20 White Blood Count 10.1 x10^3/uL (4.0-11.0) 6.7 x10^3/uL (4.0-11.0) Red Blood Count 5.19 x10^6/uL (4.30-5.70) 4.98 x10^6/uL (4.30-5.70) Hemoglobin 15.7 g/dL (13.0-17.5) 14.9 g/dL (13.0-17.5) Hematocrit 46.8 % (39.0-53.0) 45.5 % (39.0-53.0) Mean Corpuscular Volume 90 fL (79-100) 91 fL (79-100) Mean Corpuscular Hemoglobin 30 pg (25-35) 30 pg (25-35) Mean Corpuscular Hemoglobin Concent 34 g/dL (31-37) 33 g/dL (31-37) Red Cell Distribution Width 13.0 % (11.5-14.5) 13.2 % (11.5-14.5) Platelet Count 257 x10^3/uL (140-400) 241 x10^3/uL (140-400) Neutrophils (%) (Auto) 76 % (31-73) 42 % (31-73) Lymphocytes (%) (Auto) 17 % (24-48) 44 % (24-48) Monocytes (%) (Auto) 6 % (0-9) 10 % (0-9) Eosinophils (%) (Auto) 1 % (0-3) 4 % (0-3) Basophils (%) (Auto) 1 % (0-3) 1 % (0-3) Neutrophils # (Auto) 7.7 x10^3uL (1.8-7.7) 2.8 x10^3uL (1.8-7.7) Lymphocytes # (Auto) 1.7 x10^3/uL (1.0-4.8) 3.0 x10^3/uL (1.0-4.8) Monocytes # (Auto) 0.6 x10^3/uL (0.0-1.1) 0.6 x10^3/uL (0.0-1.1) Eosinophils # (Auto) 0.1 x10^3/uL (0.0-0.7) 0.2 x10^3/uL (0.0-0.7) Basophils # (Auto) 0.0 x10^3/uL (0.0-0.2) 0.0 x10^3/uL (0.0-0.2) Prothrombin Time 13.5 SEC (11.7-14.0) Prothromb Time International Ratio 1.1 (0.8-1.1) Activated Partial Thromboplast Time 32 SEC (24-38) Sodium Level 140 mmol/L (136-145) 142 mmol/L (136-145) Potassium Level 3.8 mmol/L (3.5-5.1) 4.3 mmol/L (3.5-5.1) Chloride Level 104 mmol/L (98-107) 107 mmol/L (98-107) Carbon Dioxide Level 29 mmol/L (21-32) 29 mmol/L (21-32) Anion Gap 7 (6-14) 6 (6-14) Blood Urea Nitrogen 8 mg/dL (8-26) 7 mg/dL (8-26) Creatinine 0.8 mg/dL (0.7-1.3) 0.9 mg/dL (0.7-1.3) Estimated GFR (Cockcroft-Gault) 119.8 104.6 Glucose Level 93 mg/dL (70-99) 86 mg/dL (70-99) Calcium Level 8.8 mg/dL (8.5-10.1) 8.3 mg/dL (8.5-10.1) Total Bilirubin 1.1 mg/dL (0.2-1.0) Direct Bilirubin 0.2 mg/dL (0.0-0.2) Aspartate Amino Transf (AST/SGOT) 15 U/L (15-37) Alanine Aminotransferase (ALT/SGPT) 16 U/L (16-63) Alkaline Phosphatase 48 U/L (46-116) Creatine Kinase 121 U/L (39-308) Creatine Kinase MB (Mass) < 0.5 ng/mL (0.0-3.6) Creatine Kinase MB Relative Index % (0-4) Total Protein 7.4 g/dL (6.4-8.2) Albumin 4.1 g/dL (3.4-5.0) Lipase 88 U/L (73-393) Urine Collection Type Unknown Urine Color Yellow Urine Clarity Clear Urine pH 7.0 Urine Specific [place] >=1.030 Urine Protein Negative mg/dL (NEG-TRACE) Urine Glucose (UA) Negative mg/dL (NEG) Urine Ketones (Stick) Trace mg/dL (NEG) Urine Blood Negative (NEG) Urine Nitrite Negative (NEG) Urine Bilirubin Negative (NEG) Urine Urobilinogen Dipstick 1.0 mg/dL (0.2 mg/dL) Urine Leukocyte Esterase Negative (NEG) Urine RBC Occ /HPF (0-2) Urine WBC 0 /HPF (0-4) Urine Squamous Epithelial Cells Occ /LPF Urine Bacteria 0 /HPF (0-FEW) Urine Mucus Mod /LPF Urine Opiates Screen Pos (NEG) Urine Methadone Screen Neg (NEG) Urine Barbiturates Neg (NEG) Urine Phencyclidine Screen Neg (NEG) Urine Amphetamine/Methamphetamine Neg (NEG) Urine Benzodiazepines Screen Neg (NEG) Urine Cocaine Screen Neg (NEG) Urine Cannabinoids Screen Pos (NEG) Urine Ethyl Alcohol Neg (NEG) Review of Systems Review of Systems abd pain, emesis,nausea no CP or SOA Assessment and Plan Assessmemt and Plan Problems Medical Problems: (1) Abdominal pain Status: Acute Problems: Comment Review of Relevant I have reviewed the following items varinder (where applicable) has been applied. Labs Laboratory Tests Test 02/21/17 12:28 02/21/17 14:21 02/22/17 05:20 White Blood Count 10.1 x10^3/uL (4.0-11.0) 6.7 x10^3/uL (4.0-11.0) Red Blood Count 5.19 x10^6/uL (4.30-5.70) 4.98 x10^6/uL (4.30-5.70) Hemoglobin 15.7 g/dL (13.0-17.5) 14.9 g/dL (13.0-17.5) Hematocrit 46.8 % (39.0-53.0) 45.5 % (39.0-53.0) Mean Corpuscular Volume 90 fL (79-100) 91 fL (79-100) Mean Corpuscular Hemoglobin 30 pg (25-35) 30 pg (25-35) Mean Corpuscular Hemoglobin Concent 34 g/dL (31-37) 33 g/dL (31-37) Red Cell Distribution Width 13.0 % (11.5-14.5) 13.2 % (11.5-14.5) Platelet Count 257 x10^3/uL (140-400) 241 x10^3/uL (140-400) Neutrophils (%) (Auto) 76 % (31-73) 42 % (31-73) Lymphocytes (%) (Auto) 17 % (24-48) 44 % (24-48) Monocytes (%) (Auto) 6 % (0-9) 10 % (0-9) Eosinophils (%) (Auto) 1 % (0-3) 4 % (0-3) Basophils (%) (Auto) 1 % (0-3) 1 % (0-3) Neutrophils # (Auto) 7.7 x10^3uL (1.8-7.7) 2.8 x10^3uL (1.8-7.7) Lymphocytes # (Auto) 1.7 x10^3/uL (1.0-4.8) 3.0 x10^3/uL (1.0-4.8) Monocytes # (Auto) 0.6 x10^3/uL (0.0-1.1) 0.6 x10^3/uL (0.0-1.1) Eosinophils # (Auto) 0.1 x10^3/uL (0.0-0.7) 0.2 x10^3/uL (0.0-0.7) Basophils # (Auto) 0.0 x10^3/uL (0.0-0.2) 0.0 x10^3/uL (0.0-0.2) Prothrombin Time 13.5 SEC (11.7-14.0) Prothromb Time International Ratio 1.1 (0.8-1.1) Activated Partial Thromboplast Time 32 SEC (24-38) Sodium Level 140 mmol/L (136-145) 142 mmol/L (136-145) Potassium Level 3.8 mmol/L (3.5-5.1) 4.3 mmol/L (3.5-5.1) Chloride Level 104 mmol/L (98-107) 107 mmol/L (98-107) Carbon Dioxide Level 29 mmol/L (21-32) 29 mmol/L (21-32) Anion Gap 7 (6-14) 6 (6-14) Blood Urea Nitrogen 8 mg/dL (8-26) 7 mg/dL (8-26) Creatinine 0.8 mg/dL (0.7-1.3) 0.9 mg/dL (0.7-1.3) Estimated GFR (Cockcroft-Gault) 119.8 104.6 Glucose Level 93 mg/dL (70-99) 86 mg/dL (70-99) Calcium Level 8.8 mg/dL (8.5-10.1) 8.3 mg/dL (8.5-10.1) Total Bilirubin 1.1 mg/dL (0.2-1.0) Direct Bilirubin 0.2 mg/dL (0.0-0.2) Aspartate Amino Transf (AST/SGOT) 15 U/L (15-37) Alanine Aminotransferase (ALT/SGPT) 16 U/L (16-63) Alkaline Phosphatase 48 U/L (46-116) Creatine Kinase 121 U/L (39-308) Creatine Kinase MB (Mass) < 0.5 ng/mL (0.0-3.6) Creatine Kinase MB Relative Index % (0-4) Total Protein 7.4 g/dL (6.4-8.2) Albumin 4.1 g/dL (3.4-5.0) Lipase 88 U/L (73-393) Urine Collection Type Unknown Urine Color Yellow Urine Clarity Clear Urine pH 7.0 Urine Specific [place] >=1.030 Urine Protein Negative mg/dL (NEG-TRACE) Urine Glucose (UA) Negative mg/dL (NEG) Urine Ketones (Stick) Trace mg/dL (NEG) Urine Blood Negative (NEG) Urine Nitrite Negative (NEG) Urine Bilirubin Negative (NEG) Urine Urobilinogen Dipstick 1.0 mg/dL (0.2 mg/dL) Urine Leukocyte Esterase Negative (NEG) Urine RBC Occ /HPF (0-2) Urine WBC 0 /HPF (0-4) Urine Squamous Epithelial Cells Occ /LPF Urine Bacteria 0 /HPF (0-FEW) Urine Mucus Mod /LPF Urine Opiates Screen Pos (NEG) Urine Methadone Screen Neg (NEG) Urine Barbiturates Neg (NEG) Urine Phencyclidine Screen Neg (NEG) Urine Amphetamine/Methamphetamine Neg (NEG) Urine Benzodiazepines Screen Neg (NEG) Urine Cocaine Screen Neg (NEG) Urine Cannabinoids Screen Pos (NEG) Urine Ethyl Alcohol Neg (NEG) Laboratory Tests Test 02/21/17 12:28 02/21/17 14:21 02/22/17 05:20 White Blood Count 10.1 x10^3/uL (4.0-11.0) 6.7 x10^3/uL (4.0-11.0) Red Blood Count 5.19 x10^6/uL (4.30-5.70) 4.98 x10^6/uL (4.30-5.70) Hemoglobin 15.7 g/dL (13.0-17.5) 14.9 g/dL (13.0-17.5) Hematocrit 46.8 % (39.0-53.0) 45.5 % (39.0-53.0) Mean Corpuscular Volume 90 fL (79-100) 91 fL (79-100) Mean Corpuscular Hemoglobin 30 pg (25-35) 30 pg (25-35) Mean Corpuscular Hemoglobin Concent 34 g/dL (31-37) 33 g/dL (31-37) Red Cell Distribution Width 13.0 % (11.5-14.5) 13.2 % (11.5-14.5) Platelet Count 257 x10^3/uL (140-400) 241 x10^3/uL (140-400) Neutrophils (%) (Auto) 76 % (31-73) 42 % (31-73) Lymphocytes (%) (Auto) 17 % (24-48) 44 % (24-48) Monocytes (%) (Auto) 6 % (0-9) 10 % (0-9) Eosinophils (%) (Auto) 1 % (0-3) 4 % (0-3) Basophils (%) (Auto) 1 % (0-3) 1 % (0-3) Neutrophils # (Auto) 7.7 x10^3uL (1.8-7.7) 2.8 x10^3uL (1.8-7.7) Lymphocytes # (Auto) 1.7 x10^3/uL (1.0-4.8) 3.0 x10^3/uL (1.0-4.8) Monocytes # (Auto) 0.6 x10^3/uL (0.0-1.1) 0.6 x10^3/uL (0.0-1.1) Eosinophils # (Auto) 0.1 x10^3/uL (0.0-0.7) 0.2 x10^3/uL (0.0-0.7) Basophils # (Auto) 0.0 x10^3/uL (0.0-0.2) 0.0 x10^3/uL (0.0-0.2) Prothrombin Time 13.5 SEC (11.7-14.0) Prothromb Time International Ratio 1.1 (0.8-1.1) Activated Partial Thromboplast Time 32 SEC (24-38) Sodium Level 140 mmol/L (136-145) 142 mmol/L (136-145) Potassium Level 3.8 mmol/L (3.5-5.1) 4.3 mmol/L (3.5-5.1) Chloride Level 104 mmol/L (98-107) 107 mmol/L (98-107) Carbon Dioxide Level 29 mmol/L (21-32) 29 mmol/L (21-32) Anion Gap 7 (6-14) 6 (6-14) Blood Urea Nitrogen 8 mg/dL (8-26) 7 mg/dL (8-26) Creatinine 0.8 mg/dL (0.7-1.3) 0.9 mg/dL (0.7-1.3) Estimated GFR (Cockcroft-Gault) 119.8 104.6 Glucose Level 93 mg/dL (70-99) 86 mg/dL (70-99) Calcium Level 8.8 mg/dL (8.5-10.1) 8.3 mg/dL (8.5-10.1) Total Bilirubin 1.1 mg/dL (0.2-1.0) Direct Bilirubin 0.2 mg/dL (0.0-0.2) Aspartate Amino Transf (AST/SGOT) 15 U/L (15-37) Alanine Aminotransferase (ALT/SGPT) 16 U/L (16-63) Alkaline Phosphatase 48 U/L (46-116) Creatine Kinase 121 U/L (39-308) Creatine Kinase MB (Mass) < 0.5 ng/mL (0.0-3.6) Creatine Kinase MB Relative Index % (0-4) Total Protein 7.4 g/dL (6.4-8.2) Albumin 4.1 g/dL (3.4-5.0) Lipase 88 U/L (73-393) Urine Collection Type Unknown Urine Color Yellow Urine Clarity Clear Urine pH 7.0 Urine Specific [place] >=1.030 Urine Protein Negative mg/dL (NEG-TRACE) Urine Glucose (UA) Negative mg/dL (NEG) Urine Ketones (Stick) Trace mg/dL (NEG) Urine Blood Negative (NEG) Urine Nitrite Negative (NEG) Urine Bilirubin Negative (NEG) Urine Urobilinogen Dipstick 1.0 mg/dL (0.2 mg/dL) Urine Leukocyte Esterase Negative (NEG) Urine RBC Occ /HPF (0-2) Urine WBC 0 /HPF (0-4) Urine Squamous Epithelial Cells Occ /LPF Urine Bacteria 0 /HPF (0-FEW) Urine Mucus Mod /LPF Urine Opiates Screen Pos (NEG) Urine Methadone Screen Neg (NEG) Urine Barbiturates Neg (NEG) Urine Phencyclidine Screen Neg (NEG) Urine Amphetamine/Methamphetamine Neg (NEG) Urine Benzodiazepines Screen Neg (NEG) Urine Cocaine Screen Neg (NEG) Urine Cannabinoids Screen Pos (NEG) Urine Ethyl Alcohol Neg (NEG) Medications Current Medications Morphine Sulfate 2 mg PRN Q15MIN PRN IV/SQ PAIN GREATER THAN 3/10 Last administered on 02/21/17 14:12; Start 02/21/17 at 12:45; Stop 02/21/17 at 23:17 ; Status DC Sodium Chloride 1,000 ml @ 1,000 mls/hr Q1H IV Last administered on 02/21/17 12:47; Start 02/21/17 at 12:31; Stop 02/21/17 at 13:30; Status DC Ondansetron HCl (Zofran) 4 mg 1X ONCE IV Last administered on 02/21/17 12:46 ; Start 02/21/17 at 12:45; Stop 02/21/17 at 12:46; Status DC Iohexol (Omnipaque 300 Mg/ml) 75 ml 1X ONCE IV Last administered on 02/21/17 13:57; Start 02/21/17 at 13:30; Stop 02/21/17 at 13:31; Status DC Iohexol (Omnipaque 240 Mg/ml) 50 ml 1X ONCE PO Last administered on 02/21/17 13:57; Start 02/21/17 at 13:30; Stop 02/21/17 at 13:31; Status DC Info (Do NOT chart on this entry -- for MONITORING) 1 each PRN DAILY PRN MC SEE COMMENTS; Start 02/21/17 at 13:30; Stop 02/23/17 at 13:29 Ondansetron HCl (Zofran) 4 mg 1X ONCE IV Last administered on 02/21/17 14:43 ; Start 02/21/17 at 14:45; Stop 02/21/17 at 14:46; Status DC Ciprofloxacin/ Dextrose 200 ml @ 200 mls/hr Q12HR IV Last administered on 02/22 08:21; Start 02/21/17 at 21:00 Metronidazole 100 ml @ 100 mls/hr Q8HRS IV ; Start 02/21/17 at 22:00; Stop 02/21/17 at 22:00; Status DC Metronidazole 100 ml @ 100 mls/hr 1X ONCE IV ; Start 02/21/17 at 15:15; Stop 02/21/17 at 16:14; Status DC Ciprofloxacin/ Dextrose 200 ml @ 200 mls/hr 1X ONCE IV Last administered on 02/21/17 19:16; Start 02/21/17 at 15:15; Stop 02/21/17 at 16:14; Status DC Metronidazole 100 ml @ 100 mls/hr BID IV Last administered on 02/22/17 10:52 ; Start 02/21/17 at 18:00 Acetaminophen (Tylenol) 650 mg PRN Q6HRS PRN PO FEVER; Start 02/21/17 at 16:45 Ondansetron HCl (Zofran) 4 mg PRN Q6HRS PRN IV NAUSEA/VOMITING Last administered on 02/22/17 08:20; Start 02/21/17 at 16:45 Morphine Sulfate 2 mg PRN Q2HR PRN IV PAIN Last administered on 02/21/17 19:53 ; Start 02/21/17 at 16:45; Stop 02/21/17 at 23:17; Status DC Tramadol HCl (Ultram) 50 mg PRN Q6HRS PRN PO PAIN; Start 02/21/17 at 16:45 Hydralazine HCl (Apresoline Inj) 10 mg PRN Q4HRS PRN IVP ELEVATED BP, SEE COMMENTS; Start 02/21/17 at 16:45 Docusate Sodium (Colace) 100 mg PRN DAILY PRN PO CONSTIPATION; Start 02/21/17 at 16:45 Pantoprazole Sodium (Protonix) 40 mg DAILYAC PO Last administered on 02/22/17 08:17; Start 02/21/17 at 17:15 Enoxaparin Sodium (Lovenox 40mg Syringe) 40 mg Q24H SQ ; Start 02/22/17 at 08:00 Acetaminophen/ Hydrocodone Bitart (Lortab 5/325) 1 tab PRN Q4HRS PRN PO PAIN Last administered on 02/22/17 09:33; Start 02/21/17 at 16:45 Sodium Chloride 1,000 ml @ 100 mls/hr Q10H IV Last administered on 02/22/17 09:34; Start 02/21/17 at 17:00 Lorazepam (Ativan) 2 mg PRN Q4HRS PRN IV ANXIETY / AGITATION; Start 02/21/17 at 17:00 Folic Acid (Folic Acid) 1 mg DAILY PO Last administered on 02/22/17 08:17; Start 02/21/17 at 18:00 Thiamine Mononitrate (Vitamin B-1) 100 mg DAILY PO Last administered on 08:17; Start 02/21/17 at 18:00 Albuterol Sulfate (Ventolin Neb Soln) 2.5 mg PRN Q4HRS PRN NEB SHORTNESS OF BREATH; Start 02/21/17 at 18:30 Guaifenesin (Robitussin) 200 mg PRN Q4HRS PRN PO COUGH Last administered on 09:33; Start 02/21/17 at 18:30 Morphine Sulfate 2 mg PRN Q2HR PRN IV PAIN Last administered on 02/22/17 11:17 ; Start 02/21/17 at 23:30 Prochlorperazine Edisylate (Compazine) 10 mg PRN Q6HRS PRN IV NAUSEA/VOMITING Last administered on 02/22/17 11:17; Start 02/22/17 at 11:00 Vitals/I & O Vital Sign - Last 24 Hours 02/21/17 02/21/17 02/21/17 02/21/17 12:10 12:47 13:17 14:07 Temp 98.9 98.9 Pulse 73 60 62 Resp 18 20 16 B/P (MAP) 138/75 (96) 127/73 (91) 133/73 (93) Pulse Ox 96 99 98 100 O2 Delivery Room Air Room Air Room Air Room Air 02/21/17 02/21/17 02/21/17 02/21/17 14:12 15:07 16:31 17:45 Temp 98.7 98.7 Pulse 66 60 Resp 16 16 12 B/P (MAP) 132/83 (99) 113/61 (78) Pulse Ox 98 96 97 93 O2 Delivery Room Air Room Air Room Air Room Air 02/21/17 02/21/17 02/21/17 02/21/17 17:47 19:00 19:53 20:00 Pulse 72 Resp 18 B/P (MAP) 103/56 (72) Pulse Ox 93 O2 Delivery Room Air Room Air Room Air 02/21/17 02/21/17 02/21/17 02/21/17 20:23 20:34 22:07 23:00 Temp 97.9 97.9 Pulse 63 Resp 20 18 B/P (MAP) 102/48 (66) Pulse Ox 97 97 97 O2 Delivery Room Air Room Air Room Air 02/21/17 02/21/17 02/22/17 02/22/17 23:07 23:31 00:01 03:00 Temp 97.7 97.7 Pulse 64 Resp 18 18 B/P (MAP) 97/47 (64) Pulse Ox 97 97 97 O2 Delivery Room Air 02/22/17 02/22/17 02/22/17 02/22/17 07:00 08:20 08:50 09:31 Temp 97.7 97.7 Pulse 58 Resp 18 16 16 B/P (MAP) 100/63 (75) Pulse Ox 97 O2 Delivery Room Air Room Air Room Air Room Air 02/22/17 02/22/17 02/22/17 09:33 10:33 11:17 Resp 16 16 16 O2 Delivery Room Air Room Air Room Air BOBBY FLORES MD Feb 22, 2017 11:40
[2017-02-22 15:00] VITALS: BP 101/50
[2017-02-22 19:00] VITALS: BP 116/66
[2017-02-22 23:00] VITALS: BP 117/68
[2017-02-23 03:00] VITALS: BP 111/60
[2017-02-23 07:00] VITALS: BP 110/56
[2017-02-23] MEDS: ENOXAPARIN 40 MG/0.4 ML SYRINGE. SQ SCH (08:00)
[2017-02-23] MEDS: IV NORMAL SALINE 1000ML BAG 1,000 ML IV SCH ×2 (09:00→20:34)
[2017-02-23] MEDS: THIAMINE 100 MG TABLET. PO SCH (09:14)
[2017-02-23] MEDS: FOLIC ACID 1 MG TABLET. PO SCH (09:14)
[2017-02-23] MEDS: PANTOPRAZOLE 40 MG TABLET.DR. PO SCH (09:14)
[2017-02-23] MEDS: MORPHINE SULFATE 4 MG/ML DISP.SYRIN. IV PRN (09:15)
[2017-02-23] MEDS: CIPROFLOXACIN 400MG PREMIX 200 ML IV SCH (09:18)
[2017-02-23 11:00] VITALS: BP 113/61
[2017-02-23] MEDS: HYDROcodone/APAP 5/325MG 1 TAB TABLET PO PRN ×3 (11:05→21:08)
[2017-02-23] MEDS: ONDANSETRON PF 4 MG/2 ML VIAL. IV PRN ×2 (11:05→17:51)
--- NOTE | 2017-02-23 11:50 | PDOC ---
PROGRESS NOTES Chief Complaint Chief Complaint LUQ pain, 2/2 gastris vs. ulcer vs. GERD CT showed ? sigmoid colitis, h/o diverticulitis drug abuse with marijuana heavy drinker tobaccoism GERD History of Present Illness History of Present Illness threw up some solid food last night so now back on liquid diet NO fevers ON flagyl levaquin for ?sigmoid diverticultis on CT MOstly left sided pain but does have some minor tenderness on Rt side, now talks about GB dse PLAN: Keep on liquid diet IVF GI and GS on board Dw him Can check ESR tmr - re colitis Vitals Vitals Vital Signs Date Time Temp Pulse Resp B/P (MAP) Pulse Ox O2 Delivery O2 Flow Rate FiO2 02/23/17 07:00 98.7 96 18 110/56 (74) 99 Room Air 98.7 Physical Exam General: Alert, Oriented X3, Cooperative Heart: Regular rate, Normal S1, Normal S2 Lungs: Clear Abdomen: Soft, No tenderness, No hepatosplenomegaly, Other (tender left side no guarding) Extremities: No clubbing, No cyanosis Skin: No rashes, No breakdown Review of Systems Review of Systems abd pain, nausea, no cp, emesis soa, today Assessment and Plan Assessmemt and Plan Problems Medical Problems: (1) Abdominal pain Status: Acute Problems: Comment Review of Relevant I have reviewed the following items varinder (where applicable) has been applied. Labs Laboratory Tests Test 02/21/17 12:28 02/21/17 14:21 02/22/17 05:20 White Blood Count 10.1 x10^3/uL (4.0-11.0) 6.7 x10^3/uL (4.0-11.0) Red Blood Count 5.19 x10^6/uL (4.30-5.70) 4.98 x10^6/uL (4.30-5.70) Hemoglobin 15.7 g/dL (13.0-17.5) 14.9 g/dL (13.0-17.5) Hematocrit 46.8 % (39.0-53.0) 45.5 % (39.0-53.0) Mean Corpuscular Volume 90 fL (79-100) 91 fL (79-100) Mean Corpuscular Hemoglobin 30 pg (25-35) 30 pg (25-35) Mean Corpuscular Hemoglobin Concent 34 g/dL (31-37) 33 g/dL (31-37) Red Cell Distribution Width 13.0 % (11.5-14.5) 13.2 % (11.5-14.5) Platelet Count 257 x10^3/uL (140-400) 241 x10^3/uL (140-400) Neutrophils (%) (Auto) 76 % (31-73) 42 % (31-73) Lymphocytes (%) (Auto) 17 % (24-48) 44 % (24-48) Monocytes (%) (Auto) 6 % (0-9) 10 % (0-9) Eosinophils (%) (Auto) 1 % (0-3) 4 % (0-3) Basophils (%) (Auto) 1 % (0-3) 1 % (0-3) Neutrophils # (Auto) 7.7 x10^3uL (1.8-7.7) 2.8 x10^3uL (1.8-7.7) Lymphocytes # (Auto) 1.7 x10^3/uL (1.0-4.8) 3.0 x10^3/uL (1.0-4.8) Monocytes # (Auto) 0.6 x10^3/uL (0.0-1.1) 0.6 x10^3/uL (0.0-1.1) Eosinophils # (Auto) 0.1 x10^3/uL (0.0-0.7) 0.2 x10^3/uL (0.0-0.7) Basophils # (Auto) 0.0 x10^3/uL (0.0-0.2) 0.0 x10^3/uL (0.0-0.2) Prothrombin Time 13.5 SEC (11.7-14.0) Prothromb Time International Ratio 1.1 (0.8-1.1) Activated Partial Thromboplast Time 32 SEC (24-38) Sodium Level 140 mmol/L (136-145) 142 mmol/L (136-145) Potassium Level 3.8 mmol/L (3.5-5.1) 4.3 mmol/L (3.5-5.1) Chloride Level 104 mmol/L (98-107) 107 mmol/L (98-107) Carbon Dioxide Level 29 mmol/L (21-32) 29 mmol/L (21-32) Anion Gap 7 (6-14) 6 (6-14) Blood Urea Nitrogen 8 mg/dL (8-26) 7 mg/dL (8-26) Creatinine 0.8 mg/dL (0.7-1.3) 0.9 mg/dL (0.7-1.3) Estimated GFR (Cockcroft-Gault) 119.8 104.6 Glucose Level 93 mg/dL (70-99) 86 mg/dL (70-99) Calcium Level 8.8 mg/dL (8.5-10.1) 8.3 mg/dL (8.5-10.1) Total Bilirubin 1.1 mg/dL (0.2-1.0) Direct Bilirubin 0.2 mg/dL (0.0-0.2) Aspartate Amino Transf (AST/SGOT) 15 U/L (15-37) Alanine Aminotransferase (ALT/SGPT) 16 U/L (16-63) Alkaline Phosphatase 48 U/L (46-116) Creatine Kinase 121 U/L (39-308) Creatine Kinase MB (Mass) < 0.5 ng/mL (0.0-3.6) Creatine Kinase MB Relative Index % (0-4) Total Protein 7.4 g/dL (6.4-8.2) Albumin 4.1 g/dL (3.4-5.0) Lipase 88 U/L (73-393) Urine Collection Type Unknown Urine Color Yellow Urine Clarity Clear Urine pH 7.0 Urine Specific [place] >=1.030 Urine Protein Negative mg/dL (NEG-TRACE) Urine Glucose (UA) Negative mg/dL (NEG) Urine Ketones (Stick) Trace mg/dL (NEG) Urine Blood Negative (NEG) Urine Nitrite Negative (NEG) Urine Bilirubin Negative (NEG) Urine Urobilinogen Dipstick 1.0 mg/dL (0.2 mg/dL) Urine Leukocyte Esterase Negative (NEG) Urine RBC Occ /HPF (0-2) Urine WBC 0 /HPF (0-4) Urine Squamous Epithelial Cells Occ /LPF Urine Bacteria 0 /HPF (0-FEW) Urine Mucus Mod /LPF Urine Opiates Screen Pos (NEG) Urine Methadone Screen Neg (NEG) Urine Barbiturates Neg (NEG) Urine Phencyclidine Screen Neg (NEG) Urine Amphetamine/Methamphetamine Neg (NEG) Urine Benzodiazepines Screen Neg (NEG) Urine Cocaine Screen Neg (NEG) Urine Cannabinoids Screen Pos (NEG) Urine Ethyl Alcohol Neg (NEG) Medications Current Medications Morphine Sulfate 2 mg PRN Q15MIN PRN IV/SQ PAIN GREATER THAN 3/10 Last administered on 02/21/17 14:12; Start 02/21/17 at 12:45; Stop 02/21/17 at 23:17 ; Status DC Sodium Chloride 1,000 ml @ 1,000 mls/hr Q1H IV Last administered on 02/21/17 12:47; Start 02/21/17 at 12:31; Stop 02/21/17 at 13:30; Status DC Ondansetron HCl (Zofran) 4 mg 1X ONCE IV Last administered on 02/21/17 12:46 ; Start 02/21/17 at 12:45; Stop 02/21/17 at 12:46; Status DC Iohexol (Omnipaque 300 Mg/ml) 75 ml 1X ONCE IV Last administered on 02/21/17 13:57; Start 02/21/17 at 13:30; Stop 02/21/17 at 13:31; Status DC Iohexol (Omnipaque 240 Mg/ml) 50 ml 1X ONCE PO Last administered on 02/21/17 13:57; Start 02/21/17 at 13:30; Stop 02/21/17 at 13:31; Status DC Info (Do NOT chart on this entry -- for MONITORING) 1 each PRN DAILY PRN MC SEE COMMENTS; Start 02/21/17 at 13:30; Stop 02/23/17 at 13:29 Ondansetron HCl (Zofran) 4 mg 1X ONCE IV Last administered on 02/21/17 14:43 ; Start 02/21/17 at 14:45; Stop 02/21/17 at 14:46; Status DC Ciprofloxacin/ Dextrose 200 ml @ 200 mls/hr Q12HR IV Last administered on 02/23 09:18; Start 02/21/17 at 21:00 Metronidazole 100 ml @ 100 mls/hr Q8HRS IV ; Start 02/21/17 at 22:00; Stop 02/21/17 at 22:00; Status DC Metronidazole 100 ml @ 100 mls/hr 1X ONCE IV ; Start 02/21/17 at 15:15; Stop 02/21/17 at 16:14; Status DC Ciprofloxacin/ Dextrose 200 ml @ 200 mls/hr 1X ONCE IV Last administered on 02/21/17 19:16; Start 02/21/17 at 15:15; Stop 02/21/17 at 16:14; Status DC Metronidazole 100 ml @ 100 mls/hr BID IV Last administered on 02/23/17 09:18 ; Start 02/21/17 at 18:00 Acetaminophen (Tylenol) 650 mg PRN Q6HRS PRN PO FEVER; Start 02/21/17 at 16:45 Ondansetron HCl (Zofran) 4 mg PRN Q6HRS PRN IV NAUSEA/VOMITING Last administered on 02/23/17 11:05; Start 02/21/17 at 16:45 Morphine Sulfate 2 mg PRN Q2HR PRN IV PAIN Last administered on 02/21/17 19:53 ; Start 02/21/17 at 16:45; Stop 02/21/17 at 23:17; Status DC Tramadol HCl (Ultram) 50 mg PRN Q6HRS PRN PO PAIN; Start 02/21/17 at 16:45 Hydralazine HCl (Apresoline Inj) 10 mg PRN Q4HRS PRN IVP ELEVATED BP, SEE COMMENTS; Start 02/21/17 at 16:45 Docusate Sodium (Colace) 100 mg PRN DAILY PRN PO CONSTIPATION; Start 02/21/17 at 16:45 Pantoprazole Sodium (Protonix) 40 mg DAILYAC PO Last administered on 02/23/17 09:14; Start 02/21/17 at 17:15 Enoxaparin Sodium (Lovenox 40mg Syringe) 40 mg Q24H SQ ; Start 02/22/17 at 08:00 Acetaminophen/ Hydrocodone Bitart (Lortab 5/325) 1 tab PRN Q4HRS PRN PO PAIN Last administered on 02/23/17 11:05; Start 02/21/17 at 16:45 Sodium Chloride 1,000 ml @ 100 mls/hr Q10H IV Last administered on 02/22/17 09:34; Start 02/21/17 at 17:00 Lorazepam (Ativan) 2 mg PRN Q4HRS PRN IV ANXIETY / AGITATION; Start 02/21/17 at 17:00 Folic Acid (Folic Acid) 1 mg DAILY PO Last administered on 02/23/17 09:14; Start 02/21/17 at 18:00 Thiamine Mononitrate (Vitamin B-1) 100 mg DAILY PO Last administered on 09:14; Start 02/21/17 at 18:00 Albuterol Sulfate (Ventolin Neb Soln) 2.5 mg PRN Q4HRS PRN NEB SHORTNESS OF BREATH; Start 02/21/17 at 18:30 Guaifenesin (Robitussin) 200 mg PRN Q4HRS PRN PO COUGH Last administered on 09:33; Start 02/21/17 at 18:30 Morphine Sulfate 2 mg PRN Q2HR PRN IV PAIN Last administered on 02/23/17 09:15 ; Start 02/21/17 at 23:30 Prochlorperazine Edisylate (Compazine) 10 mg PRN Q6HRS PRN IV NAUSEA/VOMITING Last administered on 02/22/17 11:17; Start 02/22/17 at 11:00 Vitals/I & O Vital Sign - Last 24 Hours 02/22/17 02/22/17 02/22/17 02/22/17 13:37 15:00 18:24 19:00 Temp 98.3 97.7 98.3 97.7 Pulse 52 54 Resp 16 18 16 18 B/P (MAP) 101/50 (67) 116/66 (83) Pulse Ox 97 96 O2 Delivery Room Air Room Air Room Air Room Air 02/22/17 02/22/17 02/22/17 02/22/17 20:00 20:22 21:22 21:43 Resp 20 18 20 Pulse Ox 97 97 97 O2 Delivery Room Air Room Air Room Air Room Air 02/22/17 02/22/17 02/23/17 02/23/17 22:13 23:00 03:00 07:00 Temp 98.1 97.6 98.7 98.1 97.6 98.7 Pulse 56 51 96 Resp 20 18 18 18 B/P (MAP) 117/68 (84) 111/60 (77) 110/56 (74) Pulse Ox 97 99 97 99 O2 Delivery Room Air Room Air Room Air Room Air BOBBY FLORES MD Feb 23, 2017 11:50
--- NOTE | 2017-02-23 12:52 | PDOC ---
G I PROGRESS NOTE Subjective Still pain, emesis with attempts to eat. Immediate LUQ discomfort; on questioning has periumbilical pain later. Objective Record from [facility] and [facility] reviewed. Documented transient SBO's at both institutions. SBFT in [place] with likely Meckel's (apparently had negative nuclear scan/probably as no gastric mucosa in diverticulum and so not bleeding). Physical Exam Lungs clear. RRR Abdomen with LUQ/milder periumbilical tenderness. Somewhat hyperactive bowel sounds. Review of Relevant I have reviewed the following items varinder (where applicable) has been applied. Labs Laboratory Tests Test 02/21/17 14:21 02/22/17 05:20 Urine Collection Type Unknown Urine Color Yellow Urine Clarity Clear Urine pH 7.0 Urine Specific [place] >=1.030 Urine Protein Negative mg/dL (NEG-TRACE) Urine Glucose (UA) Negative mg/dL (NEG) Urine Ketones (Stick) Trace mg/dL (NEG) Urine Blood Negative (NEG) Urine Nitrite Negative (NEG) Urine Bilirubin Negative (NEG) Urine Urobilinogen Dipstick 1.0 mg/dL (0.2 mg/dL) Urine Leukocyte Esterase Negative (NEG) Urine RBC Occ /HPF (0-2) Urine WBC 0 /HPF (0-4) Urine Squamous Epithelial Cells Occ /LPF Urine Bacteria 0 /HPF (0-FEW) Urine Mucus Mod /LPF Urine Opiates Screen Pos (NEG) Urine Methadone Screen Neg (NEG) Urine Barbiturates Neg (NEG) Urine Phencyclidine Screen Neg (NEG) Urine Amphetamine/Methamphetamine Neg (NEG) Urine Benzodiazepines Screen Neg (NEG) Urine Cocaine Screen Neg (NEG) Urine Cannabinoids Screen Pos (NEG) Urine Ethyl Alcohol Neg (NEG) White Blood Count 6.7 x10^3/uL (4.0-11.0) Red Blood Count 4.98 x10^6/uL (4.30-5.70) Hemoglobin 14.9 g/dL (13.0-17.5) Hematocrit 45.5 % (39.0-53.0) Mean Corpuscular Volume 91 fL (79-100) Mean Corpuscular Hemoglobin 30 pg (25-35) Mean Corpuscular Hemoglobin Concent 33 g/dL (31-37) Red Cell Distribution Width 13.2 % (11.5-14.5) Platelet Count 241 x10^3/uL (140-400) Neutrophils (%) (Auto) 42 % (31-73) Lymphocytes (%) (Auto) 44 % (24-48) Monocytes (%) (Auto) 10 % (0-9) Eosinophils (%) (Auto) 4 % (0-3) Basophils (%) (Auto) 1 % (0-3) Neutrophils # (Auto) 2.8 x10^3uL (1.8-7.7) Lymphocytes # (Auto) 3.0 x10^3/uL (1.0-4.8) Monocytes # (Auto) 0.6 x10^3/uL (0.0-1.1) Eosinophils # (Auto) 0.2 x10^3/uL (0.0-0.7) Basophils # (Auto) 0.0 x10^3/uL (0.0-0.2) Sodium Level 142 mmol/L (136-145) Potassium Level 4.3 mmol/L (3.5-5.1) Chloride Level 107 mmol/L (98-107) Carbon Dioxide Level 29 mmol/L (21-32) Anion Gap 6 (6-14) Blood Urea Nitrogen 7 mg/dL (8-26) Creatinine 0.9 mg/dL (0.7-1.3) Estimated GFR (Cockcroft-Gault) 104.6 Glucose Level 86 mg/dL (70-99) Calcium Level 8.3 mg/dL (8.5-10.1) Medications Current Medications Morphine Sulfate 2 mg PRN Q15MIN PRN IV/SQ PAIN GREATER THAN 3/10 Last administered on 02/21/17 14:12; Start 02/21/17 at 12:45; Stop 02/21/17 at 23:17 ; Status DC Sodium Chloride 1,000 ml @ 1,000 mls/hr Q1H IV Last administered on 02/21/17 12:47; Start 02/21/17 at 12:31; Stop 02/21/17 at 13:30; Status DC Ondansetron HCl (Zofran) 4 mg 1X ONCE IV Last administered on 02/21/17 12:46 ; Start 02/21/17 at 12:45; Stop 02/21/17 at 12:46; Status DC Iohexol (Omnipaque 300 Mg/ml) 75 ml 1X ONCE IV Last administered on 02/21/17 13:57; Start 02/21/17 at 13:30; Stop 02/21/17 at 13:31; Status DC Iohexol (Omnipaque 240 Mg/ml) 50 ml 1X ONCE PO Last administered on 02/21/17 13:57; Start 02/21/17 at 13:30; Stop 02/21/17 at 13:31; Status DC Info (Do NOT chart on this entry -- for MONITORING) 1 each PRN DAILY PRN MC SEE COMMENTS; Start 02/21/17 at 13:30; Stop 02/23/17 at 13:29 Ondansetron HCl (Zofran) 4 mg 1X ONCE IV Last administered on 02/21/17 14:43 ; Start 02/21/17 at 14:45; Stop 02/21/17 at 14:46; Status DC Ciprofloxacin/ Dextrose 200 ml @ 200 mls/hr Q12HR IV Last administered on 02/23 09:18; Start 02/21/17 at 21:00; Stop 02/23/17 at 11:52; Status DC Metronidazole 100 ml @ 100 mls/hr Q8HRS IV ; Start 02/21/17 at 22:00; Stop 02/21/17 at 22:00; Status DC Metronidazole 100 ml @ 100 mls/hr 1X ONCE IV ; Start 02/21/17 at 15:15; Stop 02/21/17 at 16:14; Status DC Ciprofloxacin/ Dextrose 200 ml @ 200 mls/hr 1X ONCE IV Last administered on 02/21/17 19:16; Start 02/21/17 at 15:15; Stop 02/21/17 at 16:14; Status DC Metronidazole 100 ml @ 100 mls/hr BID IV Last administered on 02/23/17 09:18 ; Start 02/21/17 at 18:00; Stop 02/23/17 at 11:52; Status DC Acetaminophen (Tylenol) 650 mg PRN Q6HRS PRN PO FEVER; Start 02/21/17 at 16:45 Ondansetron HCl (Zofran) 4 mg PRN Q6HRS PRN IV NAUSEA/VOMITING Last administered on 02/23/17 11:05; Start 02/21/17 at 16:45 Morphine Sulfate 2 mg PRN Q2HR PRN IV PAIN Last administered on 02/21/17 19:53 ; Start 02/21/17 at 16:45; Stop 02/21/17 at 23:17; Status DC Tramadol HCl (Ultram) 50 mg PRN Q6HRS PRN PO PAIN; Start 02/21/17 at 16:45 Hydralazine HCl (Apresoline Inj) 10 mg PRN Q4HRS PRN IVP ELEVATED BP, SEE COMMENTS; Start 02/21/17 at 16:45 Docusate Sodium (Colace) 100 mg PRN DAILY PRN PO CONSTIPATION; Start 02/21/17 at 16:45 Pantoprazole Sodium (Protonix) 40 mg DAILYAC PO Last administered on 02/23/17 09:14; Start 02/21/17 at 17:15 Enoxaparin Sodium (Lovenox 40mg Syringe) 40 mg Q24H SQ ; Start 02/22/17 at 08:00 Acetaminophen/ Hydrocodone Bitart (Lortab 5/325) 1 tab PRN Q4HRS PRN PO PAIN Last administered on 02/23/17 11:05; Start 02/21/17 at 16:45 Sodium Chloride 1,000 ml @ 100 mls/hr Q10H IV Last administered on 02/22/17 09:34; Start 02/21/17 at 17:00 Lorazepam (Ativan) 2 mg PRN Q4HRS PRN IV ANXIETY / AGITATION; Start 02/21/17 at 17:00 Folic Acid (Folic Acid) 1 mg DAILY PO Last administered on 02/23/17 09:14; Start 02/21/17 at 18:00 Thiamine Mononitrate (Vitamin B-1) 100 mg DAILY PO Last administered on 09:14; Start 02/21/17 at 18:00 Albuterol Sulfate (Ventolin Neb Soln) 2.5 mg PRN Q4HRS PRN NEB SHORTNESS OF BREATH; Start 02/21/17 at 18:30 Guaifenesin (Robitussin) 200 mg PRN Q4HRS PRN PO COUGH Last administered on 09:33; Start 02/21/17 at 18:30 Morphine Sulfate 2 mg PRN Q2HR PRN IV PAIN Last administered on 02/23/17 09:15 ; Start 02/21/17 at 23:30 Prochlorperazine Edisylate (Compazine) 10 mg PRN Q6HRS PRN IV NAUSEA/VOMITING Last administered on 02/22/17 11:17; Start 02/22/17 at 11:00 Fentanyl Citrate (Fentanyl 2ml Vial) 50 mcg PRN Q2HR PRN IV PAIN SEVERE; Start 02/23/17 at 12:15 Vitals/I & O Vital Sign - Last 24 Hours 02/22/17 02/22/17 02/22/17 02/22/17 13:37 15:00 18:24 19:00 Temp 98.3 97.7 98.3 97.7 Pulse 52 54 Resp 16 18 16 18 B/P (MAP) 101/50 (67) 116/66 (83) Pulse Ox 97 96 O2 Delivery Room Air Room Air Room Air Room Air 02/22/17 02/22/17 02/22/17 02/22/17 20:00 20:22 21:22 21:43 Resp 20 18 20 Pulse Ox 97 97 97 O2 Delivery Room Air Room Air Room Air Room Air 02/22/17 02/22/17 02/23/17 02/23/17 22:13 23:00 03:00 07:00 Temp 98.1 97.6 98.7 98.1 97.6 98.7 Pulse 56 51 96 Resp 20 18 18 18 B/P (MAP) 117/68 (84) 111/60 (77) 110/56 (74) Pulse Ox 97 99 97 99 O2 Delivery Room Air Room Air Room Air Room Air 02/23/17 11:00 Temp 98.5 98.5 Pulse 54 Resp 18 B/P (MAP) 113/61 (78) Pulse Ox 97 O2 Delivery Room Air Problem List Problems Medical Problems: (1) Abdominal pain Status: Acute Assessment Likely has some issues from GERD, even with "normal" EGD in [place]. Meckel's diverticulum; probably does have intermittent obstructive issues from this. May "torse" on the diverticulum. Plan of Care: Continue current Tx, Mgmt Plan of Care Note Surgical opinion. FERNIE GARAY MD Feb 23, 2017 12:52
[2017-02-23] MEDS: PROMETHAZINE 12.5 MG in IV DEXTROSE 5% 50 ML IV PRN (14:20)
[2017-02-23] MEDS: fentaNYL PF VIAL 100 MCG/2 ML VIAL IV PRN ×3 (14:24→20:33)
[2017-02-23 15:41] VITALS: BP 124/67
[2017-02-23 19:30] VITALS: BP 96/58
[2017-02-23 23:04] VITALS: BP 99/58
[2017-02-24 02:58] VITALS: BP 100/60
[2017-02-24] MEDS: IV NORMAL SALINE 1000ML BAG 1,000 ML IV SCH ×3 (06:31→21:24)
[2017-02-24 07:00] VITALS: BP 120/78
[2017-02-24] MEDS: ENOXAPARIN 40 MG/0.4 ML SYRINGE. SQ SCH (07:48)
[2017-02-24] MEDS: FOLIC ACID 1 MG TABLET. PO SCH (07:59)
[2017-02-24] MEDS: fentaNYL PF VIAL 100 MCG/2 ML VIAL IV PRN ×5 (07:59→19:40)
[2017-02-24] MEDS: PANTOPRAZOLE 40 MG TABLET.DR. PO SCH (08:00)
[2017-02-24] MEDS: THIAMINE 100 MG TABLET. PO SCH (08:06)
[2017-02-24] MEDS: PROMETHAZINE 12.5 MG in IV DEXTROSE 5% 50 ML IV PRN (09:21)
[2017-02-24] MEDS: HYDROcodone/APAP 5/325MG 1 TAB TABLET PO PRN (09:22)
--- NOTE | 2017-02-24 10:44 | PDOC ---
G I PROGRESS NOTE Subjective Trying to eat. No emesis overnight, but pretty reliable pain 30-45 minutes pc. Objective Surgical opinion pending. Physical Exam Lungs clear. RRR Abdomen diffusely tender, not distended. Review of Relevant I have reviewed the following items varinder (where applicable) has been applied. Labs Laboratory Tests Test 02/23/17 12:06 Erythrocyte Sedimentation Rate 1 (0-15) Laboratory Tests Test 02/23/17 12:06 Erythrocyte Sedimentation Rate 1 (0-15) Not IBD. Medications Current Medications Morphine Sulfate 2 mg PRN Q15MIN PRN IV/SQ PAIN GREATER THAN 3/10 Last administered on 02/21/17 14:12; Start 02/21/17 at 12:45; Stop 02/21/17 at 23:17 ; Status DC Sodium Chloride 1,000 ml @ 1,000 mls/hr Q1H IV Last administered on 02/21/17 12:47; Start 02/21/17 at 12:31; Stop 02/21/17 at 13:30; Status DC Ondansetron HCl (Zofran) 4 mg 1X ONCE IV Last administered on 02/21/17 12:46 ; Start 02/21/17 at 12:45; Stop 02/21/17 at 12:46; Status DC Iohexol (Omnipaque 300 Mg/ml) 75 ml 1X ONCE IV Last administered on 02/21/17 13:57; Start 02/21/17 at 13:30; Stop 02/21/17 at 13:31; Status DC Iohexol (Omnipaque 240 Mg/ml) 50 ml 1X ONCE PO Last administered on 02/21/17 13:57; Start 02/21/17 at 13:30; Stop 02/21/17 at 13:31; Status DC Info (Do NOT chart on this entry -- for MONITORING) 1 each PRN DAILY PRN MC SEE COMMENTS; Start 02/21/17 at 13:30; Stop 02/23/17 at 13:29; Status DC Ondansetron HCl (Zofran) 4 mg 1X ONCE IV Last administered on 02/21/17 14:43 ; Start 02/21/17 at 14:45; Stop 02/21/17 at 14:46; Status DC Ciprofloxacin/ Dextrose 200 ml @ 200 mls/hr Q12HR IV Last administered on 02/23 09:18; Start 02/21/17 at 21:00; Stop 02/23/17 at 11:52; Status DC Metronidazole 100 ml @ 100 mls/hr Q8HRS IV ; Start 02/21/17 at 22:00; Stop 02/21/17 at 22:00; Status DC Metronidazole 100 ml @ 100 mls/hr 1X ONCE IV ; Start 02/21/17 at 15:15; Stop 02/21/17 at 16:14; Status DC Ciprofloxacin/ Dextrose 200 ml @ 200 mls/hr 1X ONCE IV Last administered on 02/21/17 19:16; Start 02/21/17 at 15:15; Stop 02/21/17 at 16:14; Status DC Metronidazole 100 ml @ 100 mls/hr BID IV Last administered on 02/23/17 09:18 ; Start 02/21/17 at 18:00; Stop 02/23/17 at 11:52; Status DC Acetaminophen (Tylenol) 650 mg PRN Q6HRS PRN PO FEVER; Start 02/21/17 at 16:45 Ondansetron HCl (Zofran) 4 mg PRN Q6HRS PRN IV NAUSEA/VOMITING Last administered on 02/23/17 17:51; Start 02/21/17 at 16:45 Morphine Sulfate 2 mg PRN Q2HR PRN IV PAIN Last administered on 02/21/17 19:53 ; Start 02/21/17 at 16:45; Stop 02/21/17 at 23:17; Status DC Tramadol HCl (Ultram) 50 mg PRN Q6HRS PRN PO PAIN; Start 02/21/17 at 16:45; Stop 02/23/17 at 19:28; Status DC Hydralazine HCl (Apresoline Inj) 10 mg PRN Q4HRS PRN IVP ELEVATED BP, SEE COMMENTS; Start 02/21/17 at 16:45 Docusate Sodium (Colace) 100 mg PRN DAILY PRN PO CONSTIPATION; Start 02/21/17 at 16:45 Pantoprazole Sodium (Protonix) 40 mg DAILYAC PO Last administered on 02/24/17 08:00; Start 02/21/17 at 17:15 Enoxaparin Sodium (Lovenox 40mg Syringe) 40 mg Q24H SQ ; Start 02/22/17 at 08:00 ; Stop 02/24/17 at 10:36; Status DC Acetaminophen/ Hydrocodone Bitart (Lortab 5/325) 1 tab PRN Q4HRS PRN PO PAIN Last administered on 02/24/17 09:22; Start 02/21/17 at 16:45 Sodium Chloride 1,000 ml @ 100 mls/hr Q10H IV Last administered on 02/24/17 06:31; Start 02/21/17 at 17:00 Lorazepam (Ativan) 2 mg PRN Q4HRS PRN IV ANXIETY / AGITATION; Start 02/21/17 at 17:00 Folic Acid (Folic Acid) 1 mg DAILY PO Last administered on 02/24/17 07:59; Start 02/21/17 at 18:00 Thiamine Mononitrate (Vitamin B-1) 100 mg DAILY PO Last administered on 08:06; Start 02/21/17 at 18:00 Albuterol Sulfate (Ventolin Neb Soln) 2.5 mg PRN Q4HRS PRN NEB SHORTNESS OF BREATH; Start 02/21/17 at 18:30 Guaifenesin (Robitussin) 200 mg PRN Q4HRS PRN PO COUGH Last administered on 09:33; Start 02/21/17 at 18:30 Morphine Sulfate 2 mg PRN Q2HR PRN IV PAIN Last administered on 02/23/17 09:15 ; Start 02/21/17 at 23:30; Stop 02/23/17 at 19:28; Status DC Prochlorperazine Edisylate (Compazine) 10 mg PRN Q6HRS PRN IV NAUSEA/VOMITING Last administered on 02/22/17 11:17; Start 02/22/17 at 11:00; Stop 02/23/17 at 19:28; Status DC Fentanyl Citrate (Fentanyl 2ml Vial) 50 mcg PRN Q2HR PRN IV PAIN SEVERE Last administered on 02/24/17 07:59; Start 02/23/17 at 12:15 Promethazine HCl 12.5 mg/Dextrose 50.5 ml @ 151.5 mls/ hr PRN Q6HRS PRN IV NAUSEA/VOMITING Last administered on 02/24/17 09:21; Start 02/23/17 at 13:15 Vitals/I & O Vital Sign - Last 24 Hours 02/23/17 02/23/17 02/23/17 02/23/17 11:00 15:41 19:30 20:00 Temp 98.5 98.0 97.5 98.5 98.0 97.5 Pulse 54 59 59 Resp 18 18 18 B/P (MAP) 113/61 (78) 124/67 (86) 96/58 (71) Pulse Ox 97 97 98 O2 Delivery Room Air Room Air Room Air Room Air 02/23/17 02/23/17 02/23/17 02/23/17 20:33 21:03 21:08 22:08 Resp 20 20 20 18 Pulse Ox 98 98 98 98 O2 Delivery Room Air Room Air Room Air Room Air 02/23/17 02/24/17 02/24/17 02/24/17 23:04 02:58 07:00 07:39 Temp 97.8 98.0 98.7 97.8 98.0 98.7 Pulse 52 55 50 Resp 18 18 18 B/P (MAP) 99/58 (72) 100/60 (73) 120/78 (92) Pulse Ox 98 98 96 95 O2 Delivery Room Air Room Air Room Air Room Air Problem List Problems Medical Problems: (1) Abdominal pain Status: Acute Assessment Recurrent abdominal pain pc/history of transient SBO's with prior Dx of Meckel' s. Plan of Care: Continue current Tx, Mgmt Plan of Care Note Await surgical opinion. FERNIE GARAY MD Feb 24, 2017 10:44
[2017-02-24 11:00] VITALS: BP 116/65
--- NOTE | 2017-02-24 11:31 | PDOC ---
PROGRESS NOTES Chief Complaint Chief Complaint LUQ pain, Possible meckel's CT showed ? sigmoid colitis, h/o diverticulitis drug abuse with marijuana heavy drinker tobaccoism GERD History of Present Illness History of Present Illness NAusea continues butvhe wants to eat solid food He is opnionated about his care LAbs and VS ok Gi has consulted [facility] - re meckel;s - Pt refused sx for Meckels in another hospital - might be agreeable this time PLAN: await [facility] rounds CPM Dw RNs Vitals Vitals Vital Signs Date Time Temp Pulse Resp B/P (MAP) Pulse Ox O2 Delivery O2 Flow Rate FiO2 02/24/17 07:39 95 Room Air 02/24/17 07:00 98.7 50 18 120/78 (92) 98.7 Physical Exam General: Alert, Oriented X3, Cooperative Heart: Regular rate, Normal S1, Normal S2 Lungs: Clear Abdomen: Soft, No tenderness, No hepatosplenomegaly, Other (tender left side no guarding) Extremities: No clubbing, No cyanosis Skin: No rashes, No breakdown Labs LABS Laboratory Tests Test 02/23/17 12:06 Erythrocyte Sedimentation Rate 1 (0-15) Review of Systems Review of Systems nausea, left sided abd pain, no cp,.soa, diarrhea Assessment and Plan Assessmemt and Plan Problems Medical Problems: (1) Abdominal pain Status: Acute Problems: Comment Review of Relevant I have reviewed the following items varinder (where applicable) has been applied. Labs Laboratory Tests Test 02/23/17 12:06 Erythrocyte Sedimentation Rate 1 (0-15) Laboratory Tests Test 02/23/17 12:06 Erythrocyte Sedimentation Rate 1 (0-15) Medications Current Medications Morphine Sulfate 2 mg PRN Q15MIN PRN IV/SQ PAIN GREATER THAN 3/10 Last administered on 02/21/17 14:12; Start 02/21/17 at 12:45; Stop 02/21/17 at 23:17 ; Status DC Sodium Chloride 1,000 ml @ 1,000 mls/hr Q1H IV Last administered on 02/21/17 12:47; Start 02/21/17 at 12:31; Stop 02/21/17 at 13:30; Status DC Ondansetron HCl (Zofran) 4 mg 1X ONCE IV Last administered on 02/21/17 12:46 ; Start 02/21/17 at 12:45; Stop 02/21/17 at 12:46; Status DC Iohexol (Omnipaque 300 Mg/ml) 75 ml 1X ONCE IV Last administered on 02/21/17 13:57; Start 02/21/17 at 13:30; Stop 02/21/17 at 13:31; Status DC Iohexol (Omnipaque 240 Mg/ml) 50 ml 1X ONCE PO Last administered on 02/21/17 13:57; Start 02/21/17 at 13:30; Stop 02/21/17 at 13:31; Status DC Info (Do NOT chart on this entry -- for MONITORING) 1 each PRN DAILY PRN MC SEE COMMENTS; Start 02/21/17 at 13:30; Stop 02/23/17 at 13:29; Status DC Ondansetron HCl (Zofran) 4 mg 1X ONCE IV Last administered on 02/21/17 14:43 ; Start 02/21/17 at 14:45; Stop 02/21/17 at 14:46; Status DC Ciprofloxacin/ Dextrose 200 ml @ 200 mls/hr Q12HR IV Last administered on 02/23 09:18; Start 02/21/17 at 21:00; Stop 02/23/17 at 11:52; Status DC Metronidazole 100 ml @ 100 mls/hr Q8HRS IV ; Start 02/21/17 at 22:00; Stop 02/21/17 at 22:00; Status DC Metronidazole 100 ml @ 100 mls/hr 1X ONCE IV ; Start 02/21/17 at 15:15; Stop 02/21/17 at 16:14; Status DC Ciprofloxacin/ Dextrose 200 ml @ 200 mls/hr 1X ONCE IV Last administered on 02/21/17 19:16; Start 02/21/17 at 15:15; Stop 02/21/17 at 16:14; Status DC Metronidazole 100 ml @ 100 mls/hr BID IV Last administered on 02/23/17 09:18 ; Start 02/21/17 at 18:00; Stop 02/23/17 at 11:52; Status DC Acetaminophen (Tylenol) 650 mg PRN Q6HRS PRN PO FEVER; Start 02/21/17 at 16:45 Ondansetron HCl (Zofran) 4 mg PRN Q6HRS PRN IV NAUSEA/VOMITING Last administered on 02/23/17 17:51; Start 02/21/17 at 16:45 Morphine Sulfate 2 mg PRN Q2HR PRN IV PAIN Last administered on 02/21/17 19:53 ; Start 02/21/17 at 16:45; Stop 02/21/17 at 23:17; Status DC Tramadol HCl (Ultram) 50 mg PRN Q6HRS PRN PO PAIN; Start 02/21/17 at 16:45; Stop 02/23/17 at 19:28; Status DC Hydralazine HCl (Apresoline Inj) 10 mg PRN Q4HRS PRN IVP ELEVATED BP, SEE COMMENTS; Start 02/21/17 at 16:45 Docusate Sodium (Colace) 100 mg PRN DAILY PRN PO CONSTIPATION; Start 02/21/17 at 16:45 Pantoprazole Sodium (Protonix) 40 mg DAILYAC PO Last administered on 02/24/17 08:00; Start 02/21/17 at 17:15 Enoxaparin Sodium (Lovenox 40mg Syringe) 40 mg Q24H SQ ; Start 02/22/17 at 08:00 ; Stop 02/24/17 at 10:36; Status DC Acetaminophen/ Hydrocodone Bitart (Lortab 5/325) 1 tab PRN Q4HRS PRN PO PAIN Last administered on 02/24/17 09:22; Start 02/21/17 at 16:45 Sodium Chloride 1,000 ml @ 100 mls/hr Q10H IV Last administered on 02/24/17 06:31; Start 02/21/17 at 17:00 Lorazepam (Ativan) 2 mg PRN Q4HRS PRN IV ANXIETY / AGITATION; Start 02/21/17 at 17:00 Folic Acid (Folic Acid) 1 mg DAILY PO Last administered on 02/24/17 07:59; Start 02/21/17 at 18:00 Thiamine Mononitrate (Vitamin B-1) 100 mg DAILY PO Last administered on 08:06; Start 02/21/17 at 18:00 Albuterol Sulfate (Ventolin Neb Soln) 2.5 mg PRN Q4HRS PRN NEB SHORTNESS OF BREATH; Start 02/21/17 at 18:30 Guaifenesin (Robitussin) 200 mg PRN Q4HRS PRN PO COUGH Last administered on 09:33; Start 02/21/17 at 18:30 Morphine Sulfate 2 mg PRN Q2HR PRN IV PAIN Last administered on 02/23/17 09:15 ; Start 02/21/17 at 23:30; Stop 02/23/17 at 19:28; Status DC Prochlorperazine Edisylate (Compazine) 10 mg PRN Q6HRS PRN IV NAUSEA/VOMITING Last administered on 02/22/17 11:17; Start 02/22/17 at 11:00; Stop 02/23/17 at 19:28; Status DC Fentanyl Citrate (Fentanyl 2ml Vial) 50 mcg PRN Q2HR PRN IV PAIN SEVERE Last administered on 02/24/17 07:59; Start 02/23/17 at 12:15 Promethazine HCl 12.5 mg/Dextrose 50.5 ml @ 151.5 mls/ hr PRN Q6HRS PRN IV NAUSEA/VOMITING Last administered on 02/24/17 09:21; Start 02/23/17 at 13:15 Vitals/I & O Vital Sign - Last 24 Hours 02/23/17 02/23/17 02/23/17 02/23/17 15:41 19:30 20:00 20:33 Temp 98.0 97.5 98.0 97.5 Pulse 59 59 Resp 18 18 20 B/P (MAP) 124/67 (86) 96/58 (71) Pulse Ox 97 98 98 O2 Delivery Room Air Room Air Room Air Room Air 02/23/17 02/23/17 02/23/17 02/23/17 21:03 21:08 22:08 23:04 Temp 97.8 97.8 Pulse 52 Resp 20 20 18 18 B/P (MAP) 99/58 (72) Pulse Ox 98 98 98 98 O2 Delivery Room Air Room Air Room Air Room Air 02/24/17 02/24/17 02/24/17 02:58 07:00 07:39 Temp 98.0 98.7 98.0 98.7 Pulse 55 50 Resp 18 18 B/P (MAP) 100/60 (73) 120/78 (92) Pulse Ox 98 96 95 O2 Delivery Room Air Room Air Room Air BOBBY FLORES MD Feb 24, 2017 11:31
--- NOTE | 2017-02-24 12:29 | PDOC2 ---
CONSULT Date of Consult Date of Consult DATE: 02/24/17 TIME: 12:21 Reason for Consult Reason for Consult: Abdominal pain Referring Physician Referring Physician: Randolph Identification/Chief Complaint Chief Complaint Several year history of left-sided abdominal pain with nausea and vomiting Problems: Source Source: Chart review, Patient History of Present Illness Reason for Visit: 21-year-old male was met in the hospital with chronic abdominal pain nausea and vomiting. Today he is complaining of abdominal pain left upper quadrant extending to the left lower quadrant this is been the consistent area pain states it's intermittent he may go as much as 6 months without pain and then have an episode. 2 years ago he had undergone a workup at a [facility] consisting of a small bowel follow-through from those notes it appears air was questionable diverticulum in the mid small bowel although a Meckel's diverticular scan was negative at that time he was offered surgical intervention for diverticulectomy as well as appendectomy at that time the patient refused. Today's resting comfortably in bed although he does describe some pain on the left side in the similar area no nausea vomiting today. Past Medical History Cardiovascular: No pertinent hx Pulmonary: No pertinent hx CENTRAL NERVOUS SYSTEM: Carpal Tunnel Syndrome GI: Other (chronic abdominal pain) Heme/Onc: No pertinent hx Hepatobiliary: No pertinent hx Psych: Bipolar Rheumatologic: No pertinent hx Infectious disease: No pertinent hx ENT: No pertinent hx Renal/: No pertinent hx Endocrine: No pertinent hx Dermatology: No pertinent hx Past Surgical History Past Surgical History: Tonsillectomy Family History Family History: Hypertension Social History 1 pack per day ALCOHOL: other (about 1 beer daily) Drugs: Marijuana (4 times yearly) Current Problem List Problem List Problems Medical Problems: (1) Abdominal pain Status: Acute Current Medications Current Medications Current Medications Morphine Sulfate 2 mg PRN Q15MIN PRN IV/SQ PAIN GREATER THAN 3/10 Last administered on 02/21/17 14:12; Start 02/21/17 at 12:45; Stop 02/21/17 at 23:17 ; Status DC Sodium Chloride 1,000 ml @ 1,000 mls/hr Q1H IV Last administered on 02/21/17 12:47; Start 02/21/17 at 12:31; Stop 02/21/17 at 13:30; Status DC Ondansetron HCl (Zofran) 4 mg 1X ONCE IV Last administered on 02/21/17 12:46 ; Start 02/21/17 at 12:45; Stop 02/21/17 at 12:46; Status DC Iohexol (Omnipaque 300 Mg/ml) 75 ml 1X ONCE IV Last administered on 02/21/17 13:57; Start 02/21/17 at 13:30; Stop 02/21/17 at 13:31; Status DC Iohexol (Omnipaque 240 Mg/ml) 50 ml 1X ONCE PO Last administered on 02/21/17 13:57; Start 02/21/17 at 13:30; Stop 02/21/17 at 13:31; Status DC Info (Do NOT chart on this entry -- for MONITORING) 1 each PRN DAILY PRN MC SEE COMMENTS; Start 02/21/17 at 13:30; Stop 02/23/17 at 13:29; Status DC Ondansetron HCl (Zofran) 4 mg 1X ONCE IV Last administered on 02/21/17 14:43 ; Start 02/21/17 at 14:45; Stop 02/21/17 at 14:46; Status DC Ciprofloxacin/ Dextrose 200 ml @ 200 mls/hr Q12HR IV Last administered on 02/23 09:18; Start 02/21/17 at 21:00; Stop 02/23/17 at 11:52; Status DC Metronidazole 100 ml @ 100 mls/hr Q8HRS IV ; Start 02/21/17 at 22:00; Stop 02/21/17 at 22:00; Status DC Metronidazole 100 ml @ 100 mls/hr 1X ONCE IV ; Start 02/21/17 at 15:15; Stop 02/21/17 at 16:14; Status DC Ciprofloxacin/ Dextrose 200 ml @ 200 mls/hr 1X ONCE IV Last administered on 02/21/17 19:16; Start 02/21/17 at 15:15; Stop 02/21/17 at 16:14; Status DC Metronidazole 100 ml @ 100 mls/hr BID IV Last administered on 02/23/17 09:18 ; Start 02/21/17 at 18:00; Stop 02/23/17 at 11:52; Status DC Acetaminophen (Tylenol) 650 mg PRN Q6HRS PRN PO FEVER; Start 02/21/17 at 16:45 Ondansetron HCl (Zofran) 4 mg PRN Q6HRS PRN IV NAUSEA/VOMITING Last administered on 02/23/17 17:51; Start 02/21/17 at 16:45 Morphine Sulfate 2 mg PRN Q2HR PRN IV PAIN Last administered on 02/21/17 19:53 ; Start 02/21/17 at 16:45; Stop 02/21/17 at 23:17; Status DC Tramadol HCl (Ultram) 50 mg PRN Q6HRS PRN PO PAIN; Start 02/21/17 at 16:45; Stop 02/23/17 at 19:28; Status DC Hydralazine HCl (Apresoline Inj) 10 mg PRN Q4HRS PRN IVP ELEVATED BP, SEE COMMENTS; Start 02/21/17 at 16:45 Docusate Sodium (Colace) 100 mg PRN DAILY PRN PO CONSTIPATION; Start 02/21/17 at 16:45 Pantoprazole Sodium (Protonix) 40 mg DAILYAC PO Last administered on 02/24/17 08:00; Start 02/21/17 at 17:15 Enoxaparin Sodium (Lovenox 40mg Syringe) 40 mg Q24H SQ ; Start 02/22/17 at 08:00 ; Stop 02/24/17 at 10:36; Status DC Acetaminophen/ Hydrocodone Bitart (Lortab 5/325) 1 tab PRN Q4HRS PRN PO PAIN Last administered on 02/24/17 09:22; Start 02/21/17 at 16:45 Sodium Chloride 1,000 ml @ 100 mls/hr Q10H IV Last administered on 02/24/17 06:31; Start 02/21/17 at 17:00 Lorazepam (Ativan) 2 mg PRN Q4HRS PRN IV ANXIETY / AGITATION; Start 02/21/17 at 17:00 Folic Acid (Folic Acid) 1 mg DAILY PO Last administered on 02/24/17 07:59; Start 02/21/17 at 18:00 Thiamine Mononitrate (Vitamin B-1) 100 mg DAILY PO Last administered on 08:06; Start 02/21/17 at 18:00 Albuterol Sulfate (Ventolin Neb Soln) 2.5 mg PRN Q4HRS PRN NEB SHORTNESS OF BREATH; Start 02/21/17 at 18:30 Guaifenesin (Robitussin) 200 mg PRN Q4HRS PRN PO COUGH Last administered on 09:33; Start 02/21/17 at 18:30 Morphine Sulfate 2 mg PRN Q2HR PRN IV PAIN Last administered on 02/23/17 09:15 ; Start 02/21/17 at 23:30; Stop 02/23/17 at 19:28; Status DC Prochlorperazine Edisylate (Compazine) 10 mg PRN Q6HRS PRN IV NAUSEA/VOMITING Last administered on 02/22/17 11:17; Start 02/22/17 at 11:00; Stop 02/23/17 at 19:28; Status DC Fentanyl Citrate (Fentanyl 2ml Vial) 50 mcg PRN Q2HR PRN IV PAIN SEVERE Last administered on 02/24/17 11:46; Start 02/23/17 at 12:15 Promethazine HCl 12.5 mg/Dextrose 50.5 ml @ 151.5 mls/ hr PRN Q6HRS PRN IV NAUSEA/VOMITING Last administered on 02/24/17 09:21; Start 02/23/17 at 13:15 Allergies Allergies: Coded Allergies: prochlorperazine (Verified Adverse Reaction, Intermediate, anxious, agitated, combative, 02/23/17) Pt states this medication makes him anxious, agitated, combative tramadol (Verified Adverse Reaction, Intermediate, Unknown, 02/21/17) patient states tramadol makes him angry and combative. ROS Gastrointestinal: Yes Nausea, Yes Vomiting, Yes Abdominal Pain Physical Exam General: Alert, Oriented X3, Cooperative, No acute distress HEENT: Atraumatic Lungs: Clear to auscultation, Normal air movement Heart: Regular rate, No murmurs Abdomen: Normal bowel sounds, Soft, Other (TTP LUQ to LLQ) Extremities: No edema Skin: No significant lesion Neuro: Normal speech Psych/Mental Status: Mental status NL Vitals VITALS Vital Signs Date Time Temp Pulse Resp B/P (MAP) Pulse Ox O2 Delivery O2 Flow Rate FiO2 02/24/17 11:00 98.8 54 18 116/65 (82) 97 Room Air 98.8 Labs Labs Laboratory Tests Test 02/23/17 12:06 Erythrocyte Sedimentation Rate 1 (0-15) Images Images CT of the abd showing thickening of the sigmoid colon Assessment/Plan Assessment/Plan Chronic recurrent intermittent abdominal pain with nausea vomiting. Small bowel follow-through 2 years ago was suggestive of possible diverticulum of the small bowel. His complaints are not necessarily consistent with small bowel diverticulum. Will obtain small bowel follow through for further evaluation may need colonoscopy. We'll continue to follow manage conservatively at this point STEPHANIE GABRIEL MD Feb 24, 2017 12:29
[2017-02-24] MEDS: ONDANSETRON PF 4 MG/2 ML VIAL. IV PRN (13:47)
[2017-02-24] MEDS ORDERED: PROMETHAZINE 12.5 MG in IV NORMAL SALINE 50ML 50 ML IV PRN (14:26)
[2017-02-24] MEDS: HYDROmorphone 2 MG/ML VIAL IVP PRN ×3 (14:55→22:45)
[2017-02-24 15:00] VITALS: BP 113/67
--- NOTE | 2017-02-24 16:58 | RAD ---
Two-view abdominal series and PA view chest x-ray Indications: Worsening abdominal pain. History of Meckel's. Comparison: Chest x-ray dated February 21, 2017. CT study of the abdomen and pelvis dated February 21, 2017. Findings: GI contrast material is seen within the colon from the previous CT study. No dilatation of large and small bowel is evident. Small air-fluid level is seen within the stomach. No air-fluid levels of the bowel are seen. No free intraperitoneal air is evident. Chest x-ray demonstrates no acute lung infiltrate or pleural effusion or pulmonary edema or pneumothorax. The heart size and pulmonary vasculature and mediastinum and both chloe are unremarkable. IMPRESSION: No acute radiographic abnormality is evident.
[2017-02-24 19:00] VITALS: BP 101/57
[2017-02-24] MEDS: FAMOTIDINE 20 MG/2 ML VIAL IVP SCH (21:25)
[2017-02-24 23:00] VITALS: BP 115/73
[2017-02-25 03:00] VITALS: BP 110/68
[2017-02-25 04:40] LABS: HEMATOCRIT 47.5 % (39.0-53.0); HEMOGLOBIN 15.9 g/dL (13.0-17.5)
[2017-02-25] MEDS: IV NORMAL SALINE 1000ML BAG 1,000 ML IV SCH ×2 (06:30→21:00)
[2017-02-25 07:26] VITALS: BP 120/67
[2017-02-25] MEDS ORDERED: BARIUM SULFATE 60% 355 ML SUSP PO ONE (08:30)
[2017-02-25] MEDS: fentaNYL PF VIAL 100 MCG/2 ML VIAL IV PRN ×6 (08:35→23:41)
[2017-02-25] MEDS: FOLIC ACID 1 MG TABLET. PO SCH (09:00)
[2017-02-25] MEDS: THIAMINE 100 MG TABLET. PO SCH (09:00)
--- NOTE | 2017-02-25 09:01 | PDOC ---
DILLON DUGAN APRN 02/25/17 0901: SURGICAL PROGRESS NOTE Subjective down for SBFT will FU on results Vital Signs Vital Signs Date Time Temp Pulse Resp B/P (MAP) Pulse Ox O2 Delivery O2 Flow Rate FiO2 02/25/17 08:35 Room Air 02/25/17 07:26 98.0 62 18 120/67 (84) 98 98.0 Labs Laboratory Tests Test 02/23/17 12:06 02/25/17 04:15 Erythrocyte Sedimentation Rate 1 (0-15) Hemoglobin 15.9 g/dL (13.0-17.5) Hematocrit 47.5 % (39.0-53.0) Mean Corpuscular Hemoglobin Concent 34 g/dL (31-37) Laboratory Tests Test 02/25/17 04:15 Hemoglobin 15.9 g/dL (13.0-17.5) Hematocrit 47.5 % (39.0-53.0) Mean Corpuscular Hemoglobin Concent 34 g/dL (31-37) Problem List Problems Medical Problems: (1) Abdominal pain Status: Acute Problems: STEPHANIE GABRIEL MD 02/25/17 1447: SURGICAL PROGRESS NOTE Assessment/Plan Patient seen and examined, mild abdominal pain. SBFT showing small bowel diverticulum. Plan for L/S diverticulectomy tomorrow. Problems: DILLON DUGAN APRN Feb 25, 2017 09:01 STEPHANIE GABRIEL MD Feb 25, 2017 14:47
--- NOTE | 2017-02-25 10:03 | PDOC ---
PROGRESS NOTES Chief Complaint Chief Complaint LUQ pain, Possible meckel's CT showed ? sigmoid colitis, h/o diverticulitis drug abuse with marijuana heavy drinker tobaccoism GERD History of Present Illness History of Present Illness Out having acute abd series Xray abd yesterday was normal NO reports of bloody stool or emesis today Pt cont to feel sick withe emesis and doesnt eat much PLAN: CPM Await acute abd series Dw RN Hh is stable including elytes Vitals Vitals Vital Signs Date Time Temp Pulse Resp B/P (MAP) Pulse Ox O2 Delivery O2 Flow Rate FiO2 02/25/17 08:35 Room Air 02/25/17 07:26 98.0 62 18 120/67 (84) 98 98.0 Physical Exam General: Alert, Oriented X3, Cooperative, No acute distress Heart: Regular rate, No murmurs Lungs: Clear Abdomen: Normal bowel sounds, Soft, Other (TTP LUQ to LLQ) Extremities: No edema Skin: No significant lesion Labs LABS Laboratory Tests Test 02/25/17 04:15 Hemoglobin 15.9 g/dL (13.0-17.5) Hematocrit 47.5 % (39.0-53.0) Mean Corpuscular Hemoglobin Concent 34 g/dL (31-37) Review of Systems Review of Systems abd pain,left sided, nausea, emesis, no cp, no soa Assessment and Plan Assessmemt and Plan Problems Medical Problems: (1) Abdominal pain Status: Acute Problems: Comment Review of Relevant I have reviewed the following items varinder (where applicable) has been applied. Labs Laboratory Tests Test 02/23/17 12:06 02/25/17 04:15 Erythrocyte Sedimentation Rate 1 (0-15) Hemoglobin 15.9 g/dL (13.0-17.5) Hematocrit 47.5 % (39.0-53.0) Mean Corpuscular Hemoglobin Concent 34 g/dL (31-37) Laboratory Tests Test 02/25/17 04:15 Hemoglobin 15.9 g/dL (13.0-17.5) Hematocrit 47.5 % (39.0-53.0) Mean Corpuscular Hemoglobin Concent 34 g/dL (31-37) Medications Current Medications Morphine Sulfate 2 mg PRN Q15MIN PRN IV/SQ PAIN GREATER THAN 3/10 Last administered on 02/21/17t 14:12; Start 02/21/17 at 12:45; Stop 02/21/17 at 23:17 ; Status DC Sodium Chloride 1,000 ml @ 1,000 mls/hr Q1H IV Last administered on 02/21/17 12:47; Start 02/21/17 at 12:31; Stop 02/21/17 at 13:30; Status DC Ondansetron HCl (Zofran) 4 mg 1X ONCE IV Last administered on 02/21/17 12:46 ; Start 02/21/17 at 12:45; Stop 02/21/17 at 12:46; Status DC Iohexol (Omnipaque 300 Mg/ml) 75 ml 1X ONCE IV Last administered on 02/21/17 13:57; Start 02/21/17 at 13:30; Stop 02/21/17 at 13:31; Status DC Iohexol (Omnipaque 240 Mg/ml) 50 ml 1X ONCE PO Last administered on 02/21/17 13:57; Start 02/21/17 at 13:30; Stop 02/21/17 at 13:31; Status DC Info (Do NOT chart on this entry -- for MONITORING) 1 each PRN DAILY PRN MC SEE COMMENTS; Start 02/21/17 at 13:30; Stop 02/23/17 at 13:29; Status DC Ondansetron HCl (Zofran) 4 mg 1X ONCE IV Last administered on 02/21/17 14:43 ; Start 02/21/17 at 14:45; Stop 02/21/17 at 14:46; Status DC Ciprofloxacin/ Dextrose 200 ml @ 200 mls/hr Q12HR IV Last administered on 02/23 09:18; Start 02/21/17 at 21:00; Stop 02/23/17 at 11:52; Status DC Metronidazole 100 ml @ 100 mls/hr Q8HRS IV ; Start 02/21/17 at 22:00; Stop 02/21/17 at 22:00; Status DC Metronidazole 100 ml @ 100 mls/hr 1X ONCE IV ; Start 02/21/17 at 15:15; Stop 02/21/17 at 16:14; Status DC Ciprofloxacin/ Dextrose 200 ml @ 200 mls/hr 1X ONCE IV Last administered on 02/21/17 19:16; Start 02/21/17 at 15:15; Stop 02/21/17 at 16:14; Status DC Metronidazole 100 ml @ 100 mls/hr BID IV Last administered on 02/23/17 09:18 ; Start 02/21/17 at 18:00; Stop 02/23/17 at 11:52; Status DC Acetaminophen (Tylenol) 650 mg PRN Q6HRS PRN PO FEVER; Start 02/21/17 at 16:45 Ondansetron HCl (Zofran) 4 mg PRN Q6HRS PRN IV NAUSEA/VOMITING, 1ST CHOICE Last administered on 02/24/17 13:47; Start 02/21/17 at 16:45 Morphine Sulfate 2 mg PRN Q2HR PRN IV PAIN Last administered on 02/21/17 19:53 ; Start 02/21/17 at 16:45; Stop 02/21/17 at 23:17; Status DC Tramadol HCl (Ultram) 50 mg PRN Q6HRS PRN PO PAIN; Start 02/21/17 at 16:45; Stop 02/23/17 at 19:28; Status DC Hydralazine HCl (Apresoline Inj) 10 mg PRN Q4HRS PRN IVP ELEVATED BP, SEE COMMENTS; Start 02/21/17 at 16:45 Docusate Sodium (Colace) 100 mg PRN DAILY PRN PO CONSTIPATION; Start 02/21/17 at 16:45 Pantoprazole Sodium (Protonix) 40 mg DAILYAC PO Last administered on 02/24/17 08:00; Start 02/21/17 at 17:15; Stop 02/24/17 at 14:37; Status DC Enoxaparin Sodium (Lovenox 40mg Syringe) 40 mg Q24H SQ ; Start 02/22/17 at 08:00 ; Stop 02/24/17 at 10:36; Status DC Acetaminophen/ Hydrocodone Bitart (Lortab 5/325) 1 tab PRN Q4HRS PRN PO PAIN Last administered on 02/24/17 09:22; Start 02/21/17 at 16:45 Sodium Chloride 1,000 ml @ 100 mls/hr Q10H IV Last administered on 02/25/17 06:30; Start 02/21/17 at 17:00 Lorazepam (Ativan) 2 mg PRN Q4HRS PRN IV ANXIETY / AGITATION; Start 02/21/17 at 17:00 Folic Acid (Folic Acid) 1 mg DAILY PO Last administered on 02/24/17 07:59; Start 02/21/17 at 18:00 Thiamine Mononitrate (Vitamin B-1) 100 mg DAILY PO Last administered on 08:06; Start 02/21/17 at 18:00 Albuterol Sulfate (Ventolin Neb Soln) 2.5 mg PRN Q4HRS PRN NEB SHORTNESS OF BREATH; Start 02/21/17 at 18:30 Guaifenesin (Robitussin) 200 mg PRN Q4HRS PRN PO COUGH Last administered on 09:33; Start 02/21/17 at 18:30 Morphine Sulfate 2 mg PRN Q2HR PRN IV PAIN Last administered on 02/23/17 09:15 ; Start 02/21/17 at 23:30; Stop 02/23/17 at 19:28; Status DC Prochlorperazine Edisylate (Compazine) 10 mg PRN Q6HRS PRN IV NAUSEA/VOMITING Last administered on 02/22/17 11:17; Start 02/22/17 at 11:00; Stop 02/23/17 at 19:28; Status DC Fentanyl Citrate (Fentanyl 2ml Vial) 50 mcg PRN Q2HR PRN IV PAIN SEVERE Last administered on 02/25/17 08:35; Start 02/23/17 at 12:15 Promethazine HCl 12.5 mg/Dextrose 50.5 ml @ 151.5 mls/ hr PRN Q6HRS PRN IV NAUSEA/VOMITING, 2ND CHOICE Last administered on 02/24/17 09:21; Start at 13:15; Stop 02/24/17 at 14:26; Status DC Promethazine HCl 12.5 mg/Sodium Chloride 50.5 ml @ 151.5 mls/ hr PRN Q6HRS PRN IV NAUSEA/VOMITING, 2ND CHOICE; Start 02/24/17 at 14:26 Famotidine (Pepcid) 20 mg BID IVP Last administered on 02/24/17 21:25; Start 02/24/17 at 21:00 Hydromorphone HCl (Dilaudid) 0.4 mg PRN Q4HRS PRN IVP PAIN UNRELIEVED BY FENTANYL Last administered on 02/24/17 22:45; Start 02/24/17 at 14:45 Barium Sulfate (Liquid E-Z Paque) 710 ml 1X ONCE PO Last administered on 09:20; Start 02/25/17 at 08:30; Stop 02/25/17 at 08:35; Status DC Vitals/I & O Vital Sign - Last 24 Hours 02/24/17 02/24/17 02/24/17 02/24/17 11:00 15:00 19:00 19:40 Temp 98.8 98.9 97.7 98.8 98.9 97.7 Pulse 54 51 85 Resp 18 18 18 16 B/P (MAP) 116/65 (82) 113/67 (82) 101/57 (72) Pulse Ox 97 96 96 O2 Delivery Room Air Room Air Room Air Room Air 02/24/17 02/24/17 02/24/17 02/24/17 19:40 20:10 22:45 23:00 Temp 97.9 97.9 Pulse 78 Resp 18 18 18 B/P (MAP) 115/73 (87) Pulse Ox 93 O2 Delivery Room Air Room Air Room Air Room Air 02/24/17 02/25/17 02/25/17 02/25/17 23:15 03:00 07:26 08:35 Temp 97.7 98.0 97.7 98.0 Pulse 69 62 Resp 18 18 18 B/P (MAP) 110/68 (82) 120/67 (84) Pulse Ox 96 98 O2 Delivery Room Air Room Air Room Air Room Air BOBBY FLORES MD Feb 25, 2017 10:03
--- NOTE | 2017-02-25 10:52 | PDOC ---
Objective: Objective: Out for SBS. Yesterday RN called w/ increased abd pain, blood-tinged emesis, possible blood w / solid stool. Vital Signs: Vital Signs Date Time Temp Pulse Resp B/P (MAP) Pulse Ox O2 Delivery O2 Flow Rate FiO2 02/25/17 08:35 Room Air 02/25/17 07:26 98.0 62 18 120/67 (84) 98 98.0 Labs: Laboratory Tests Test 02/25/17 04:15 Hemoglobin 15.9 g/dL Hematocrit 47.5 % Mean Corpuscular Hemoglobin Concent 34 g/dL Hgb actually improved, BUN normal. PE: no exam A/P: N/v, abd pain H/o Meckel's GERD -- Await SBS. YOEL HINDS Feb 25, 2017 10:52
[2017-02-25 11:44] VITALS: BP 132/77
[2017-02-25] MEDS: ONDANSETRON PF 4 MG/2 ML VIAL. IV PRN (11:52)
[2017-02-25] MEDS: FAMOTIDINE 20 MG/2 ML VIAL IVP SCH ×2 (11:53→20:59)
--- NOTE | 2017-02-25 12:56 | RAD ---
Clinical indications: Chronic abdominal pain. History of Meckel's diverticulum. Technique: A preliminary KUB was performed. The patient drank two 8 ounce glasses of thin liquid barium containing 1 ounce of Gastrografin and a small bowel series was performed. When the contrast reached the colon, fluoroscopic evaluation of the small bowel was performed including compressive fluoroscopic spot views of the terminal ileum. Total fluoroscopic time: 2.0 minutes. Total fluoroscopic spot images: 9. Findings: No obstructive bowel pattern is seen on the preliminary film.. Contrast reaches the colon by 120 minutes. Peristalsis of the small bowel loops is observed during fluoroscopy. No mucosal fold thickening or distortion or displacement or dilatation of small bowel loops is seen.The terminal ileum is distensible and appears normal radiographically and is not focally tender during compression.There is a blind-ending sac extending medially from a loop of distal ileum consistent with a Meckel's diverticulum.. The appendix is not visualized. Impression: Meckel's diverticulum.
[2017-02-25] MEDS: HYDROmorphone 2 MG/ML VIAL IVP PRN (13:05)
[2017-02-25 14:35] VITALS: BP 126/67
[2017-02-25] MEDS: HYDROcodone/APAP 10/325 1 TAB TABLET PO PRN (18:35)
[2017-02-25 19:00] VITALS: BP 114/69
[2017-02-25 23:00] VITALS: BP 115/64
[2017-02-26] VITALS (9 sets, daily range): BP systolic 112–129; BP diastolic 61–78
[2017-02-26] MEDS: HYDROcodone/APAP 10/325 1 TAB TABLET PO PRN ×2 (02:12→23:44)
[2017-02-26] MEDS: fentaNYL PF VIAL 100 MCG/2 ML VIAL IV PRN ×7 (03:29→22:08)
[2017-02-26] MEDS: IV NORMAL SALINE 1000ML BAG 1,000 ML IV SCH ×2 (06:35→17:00)
[2017-02-26] MEDS ORDERED: ONDANSETRON PF 4 MG/2 ML VIAL. IV PRN (07:00)
[2017-02-26] MEDS ORDERED: fentaNYL PF VIAL 100 MCG/2 ML VIAL IV PRN (07:00)
[2017-02-26] MEDS ORDERED: LIDOCAINE 1% PF 2 ML VIAL. ID PRN (07:00)
[2017-02-26] MEDS ORDERED: IV RINGERS,LACTATED 1000ML 1,000 ML IV SCH (07:00)
[2017-02-26] MEDS ORDERED: BUPIVACAINE-EPI 0.25%-1:200000 50 ML VIAL. ONE (07:43)
[2017-02-26] MEDS: THIAMINE 100 MG TABLET. PO SCH (09:00)
[2017-02-26] MEDS: FOLIC ACID 1 MG TABLET. PO SCH (09:00)
[2017-02-26] MEDS: HYDROcodone/APAP 10/325 1 TAB TABLET PO SCH ×2 (09:00→18:20)
[2017-02-26] MEDS: FAMOTIDINE 20 MG/2 ML VIAL IVP SCH ×2 (10:20→21:22)
[2017-02-26] MEDS: HYDROmorphone 2 MG/ML VIAL IVP PRN ×2 (12:10→16:36)
--- NOTE | 2017-02-26 12:14 | PDOC ---
PROGRESS NOTES Chief Complaint Chief Complaint meckel's diverticulum drug abuse with marijuana heavy drinker tobaccoism GERD History of Present Illness History of Present Illness Some agitation ALcohol and smoker and marijuana use hx NO bloody BM reported to me today Schduled for sx of meckels later 2 PM VS and hgb ok pLAN: Sx later Post op labs Vitals Vitals Vital Signs Date Time Temp Pulse Resp B/P (MAP) Pulse Ox O2 Delivery O2 Flow Rate FiO2 02/26/17 12:10 98 Room Air 02/26/17 07:00 97.6 54 18 122/73 (89) 97.6 Physical Exam General: Alert, Oriented X3, Cooperative, No acute distress Heart: Regular rate, No murmurs Lungs: Clear Abdomen: Normal bowel sounds, Soft, Other (TTP LUQ to LLQ) Extremities: No edema Skin: No significant lesion Review of Systems Review of Systems abd pain, anxiety, no cp, soa, pos abd pain Assessment and Plan Assessmemt and Plan Problems Medical Problems: (1) Abdominal pain Status: Acute Problems: Comment Review of Relevant I have reviewed the following items varinder (where applicable) has been applied. Labs Laboratory Tests Test 02/25/17 04:15 Hemoglobin 15.9 g/dL (13.0-17.5) Hematocrit 47.5 % (39.0-53.0) Mean Corpuscular Hemoglobin Concent 34 g/dL (31-37) Medications Current Medications Morphine Sulfate 2 mg PRN Q15MIN PRN IV/SQ PAIN GREATER THAN 3/10 Last administered on 02/21/17 14:12; Start 02/21/17 at 12:45; Stop 02/21/17 at 23:17 ; Status DC Sodium Chloride 1,000 ml @ 1,000 mls/hr Q1H IV Last administered on 02/21/17 12:47; Start 02/21/17 at 12:31; Stop 02/21/17 at 13:30; Status DC Ondansetron HCl (Zofran) 4 mg 1X ONCE IV Last administered on 02/21/17 12:46 ; Start 02/21/17 at 12:45; Stop 02/21/17 at 12:46; Status DC Iohexol (Omnipaque 300 Mg/ml) 75 ml 1X ONCE IV Last administered on 02/21/17 13:57; Start 02/21/17 at 13:30; Stop 02/21/17 at 13:31; Status DC Iohexol (Omnipaque 240 Mg/ml) 50 ml 1X ONCE PO Last administered on 02/21/17 13:57; Start 02/21/17 at 13:30; Stop 02/21/17 at 13:31; Status DC Info (Do NOT chart on this entry -- for MONITORING) 1 each PRN DAILY PRN MC SEE COMMENTS; Start 02/21/17 at 13:30; Stop 02/23/17 at 13:29; Status DC Ondansetron HCl (Zofran) 4 mg 1X ONCE IV Last administered on 02/21/17 14:43 ; Start 02/21/17 at 14:45; Stop 02/21/17 at 14:46; Status DC Ciprofloxacin/ Dextrose 200 ml @ 200 mls/hr Q12HR IV Last administered on 02/23 09:18; Start 02/21/17 at 21:00; Stop 02/23/17 at 11:52; Status DC Metronidazole 100 ml @ 100 mls/hr Q8HRS IV ; Start 02/21/17 at 22:00; Stop 02/21/17 at 22:00; Status DC Metronidazole 100 ml @ 100 mls/hr 1X ONCE IV ; Start 02/21/17 at 15:15; Stop 02/21/17 at 16:14; Status DC Ciprofloxacin/ Dextrose 200 ml @ 200 mls/hr 1X ONCE IV Last administered on 02/21/17 19:16; Start 02/21/17 at 15:15; Stop 02/21/17 at 16:14; Status DC Metronidazole 100 ml @ 100 mls/hr BID IV Last administered on 02/23/17 09:18 ; Start 02/21/17 at 18:00; Stop 02/23/17 at 11:52; Status DC Acetaminophen (Tylenol) 650 mg PRN Q6HRS PRN PO FEVER; Start 02/21/17 at 16:45 Ondansetron HCl (Zofran) 4 mg PRN Q6HRS PRN IV NAUSEA/VOMITING, 1ST CHOICE Last administered on 02/25/17 11:52; Start 02/21/17 at 16:45 Morphine Sulfate 2 mg PRN Q2HR PRN IV PAIN Last administered on 02/21/17 19:53 ; Start 02/21/17 at 16:45; Stop 02/21/17 at 23:17; Status DC Tramadol HCl (Ultram) 50 mg PRN Q6HRS PRN PO PAIN; Start 02/21/17 at 16:45; Stop 02/23/17 at 19:28; Status DC Hydralazine HCl (Apresoline Inj) 10 mg PRN Q4HRS PRN IVP ELEVATED BP, SEE COMMENTS; Start 02/21/17 at 16:45 Docusate Sodium (Colace) 100 mg PRN DAILY PRN PO CONSTIPATION; Start 02/21/17 at 16:45 Pantoprazole Sodium (Protonix) 40 mg DAILYAC PO Last administered on 02/24/17 08:00; Start 02/21/17 at 17:15; Stop 02/24/17 at 14:37; Status DC Enoxaparin Sodium (Lovenox 40mg Syringe) 40 mg Q24H SQ ; Start 02/22/17 at 08:00 ; Stop 02/24/17 at 10:36; Status DC Acetaminophen/ Hydrocodone Bitart (Lortab 5/325) 1 tab PRN Q4HRS PRN PO PAIN Last administered on 02/24/17 09:22; Start 02/21/17 at 16:45; Stop 02/25/17 at 14:25; Status DC Sodium Chloride 1,000 ml @ 100 mls/hr Q10H IV Last administered on 02/25/17 21:00; Start 02/21/17 at 17:00 Lorazepam (Ativan) 2 mg PRN Q4HRS PRN IV ANXIETY / AGITATION Last administered on 02/26/17 01:02; Start 02/21/17 at 17:00 Folic Acid (Folic Acid) 1 mg DAILY PO Last administered on 02/24/17 07:59; Start 02/21/17 at 18:00 Thiamine Mononitrate (Vitamin B-1) 100 mg DAILY PO Last administered on 08:06; Start 02/21/17 at 18:00 Albuterol Sulfate (Ventolin Neb Soln) 2.5 mg PRN Q4HRS PRN NEB SHORTNESS OF BREATH; Start 02/21/17 at 18:30 Guaifenesin (Robitussin) 200 mg PRN Q4HRS PRN PO COUGH Last administered on 09:33; Start 02/21/17 at 18:30 Morphine Sulfate 2 mg PRN Q2HR PRN IV PAIN Last administered on 02/23/17 09:15 ; Start 02/21/17 at 23:30; Stop 02/23/17 at 19:28; Status DC Prochlorperazine Edisylate (Compazine) 10 mg PRN Q6HRS PRN IV NAUSEA/VOMITING Last administered on 02/22/17 11:17; Start 02/22/17 at 11:00; Stop 02/23/17 at 19:28; Status DC Fentanyl Citrate (Fentanyl 2ml Vial) 50 mcg PRN Q2HR PRN IV PAIN SEVERE Last administered on 02/26/17 10:21; Start 02/23/17 at 12:15 Promethazine HCl 12.5 mg/Dextrose 50.5 ml @ 151.5 mls/ hr PRN Q6HRS PRN IV NAUSEA/VOMITING, 2ND CHOICE Last administered on 02/24/17 09:21; Start at 13:15; Stop 02/24/17 at 14:26; Status DC Promethazine HCl 12.5 mg/Sodium Chloride 50.5 ml @ 151.5 mls/ hr PRN Q6HRS PRN IV NAUSEA/VOMITING, 2ND CHOICE Last administered on 02/25/17 17:23; Start 02/24/17 at 14:26 Famotidine (Pepcid) 20 mg BID IVP Last administered on 02/26/17 10:20; Start 02/24/17 at 21:00 Hydromorphone HCl (Dilaudid) 0.4 mg PRN Q4HRS PRN IVP PAIN UNRELIEVED BY FENTANYL Last administered on 02/26/17 12:10; Start 02/24/17 at 14:45 Barium Sulfate (Liquid E-Z Paque) 710 ml 1X ONCE PO Last administered on 09:20; Start 02/25/17 at 08:30; Stop 02/25/17 at 08:35; Status DC Acetaminophen/ Hydrocodone Bitart (Lortab 10/325) 1 tab DAILY PO ; Start at 09:00 Acetaminophen/ Hydrocodone Bitart (Lortab 10/325) 1 tab PRN Q6HRS PRN PO PAIN Last administered on 02/26/17t 02:12; Start 02/25/17 at 14:30 Cefazolin Sodium/ Dextrose 50 ml @ 100 mls/hr 1X PERIOP IV ; Start 02/25/17 at 15:00 Ondansetron HCl (Zofran) 4 mg PRN Q6HRS PRN IV NAUSEA/VOMITING; Start at 07:00; Stop 02/27/17 at 06:59 Fentanyl Citrate (Fentanyl 2ml Vial) 25 mcg PRN Q5MIN PRN IV MILD PAIN; Start 02/26/17 at 07:00; Stop 02/27/17 at 06:59 Fentanyl Citrate (Fentanyl 2ml Vial) 50 mcg PRN Q5MIN PRN IV MODERATE PAIN; Start 02/26/17 at 07:00; Stop 02/27/17 at 06:59 Ringer's Solution 1,000 ml @ 30 mls/hr Q24H IV ; Start 02/26/17 at 07:00; Stop 02/26/17 at 18:59 Lidocaine HCl (Xylocaine-Mpf 1% Vial) 2 ml PRN 1X PRN ID PRIOR TO IV START; Start 02/26/17 at 07:00; Stop 02/27/17 at 06:59 Bupivacaine HCl/ Epinephrine Bitart (Marcaine-Epi 0.25%-1:310111) 50 ml STK-MED ONCE .ROUTE ; Start 02/26/17 at 07:43; Stop 02/26/17 at 07:44; Status DC Vitals/I & O Vital Sign - Last 24 Hours 02/25/17 02/25/17 02/25/17 02/25/17 13:05 13:35 14:28 14:35 Temp 98.2 98.2 Pulse 57 Resp 18 B/P (MAP) 126/67 (86) Pulse Ox 97 O2 Delivery Room Air Room Air Room Air Room Air 02/25/17 02/25/17 02/25/17 02/25/17 17:28 18:35 19:00 20:00 Temp 98.4 98.4 Pulse 73 Resp 18 B/P (MAP) 114/69 (84) Pulse Ox 99 O2 Delivery Room Air Room Air Room Air Room Air 11/902/25/17 02/25/17 02/26/17 21:01 23:00 23:41 02:12 Temp 98.3 98.3 Pulse 58 Resp 16 18 16 16 B/P (MAP) 115/64 (81) Pulse Ox 99 97 97 97 O2 Delivery Room Air Room Air Room Air Room Air 02/26/17 02/26/17 02/26/17 02/26/17 03:00 03:20 03:29 03:59 Temp 98.4 98.4 Pulse 80 Resp 18 16 16 16 B/P (MAP) 121/78 (92) Pulse Ox 99 97 97 O2 Delivery Room Air Room Air Room Air 02/26/17 02/26/17 02/26/17 02/26/17 07:00 10:21 10:45 12:10 Temp 97.6 97.6 Pulse 54 Resp 18 B/P (MAP) 122/73 (89) Pulse Ox 98 98 98 98 O2 Delivery Room Air Room Air Room Air Room Air BOBBY FLORES MD Feb 26, 2017 12:14
[2017-02-26] MEDS ORDERED: PROPOFOL 20 ML IV ONE (12:18)
[2017-02-26] MEDS ORDERED: LIDOCAINE 2% PF Vial for OR 5 ML VIAL. ONE (12:19)
[2017-02-26] MEDS ORDERED: DEXAMETHASONE SOD PHOS 20 MG/5 ML VIAL. ONE (12:19)
[2017-02-26] MEDS ORDERED: ROCURONIUM 50 MG/5 ML VIAL. ONE (12:19)
[2017-02-26] MEDS ORDERED: ONDANSETRON PF 4 MG/2 ML VIAL. ONE (12:19)
--- NOTE | 2017-02-26 12:35 | PDOC ---
Subjective: Subjective: Frustrated waiting for surgery, feeling bad, can't take PO pain meds. Objective: Objective: Reviewed RN notes overnight. Vital Signs: Vital Signs Date Time Temp Pulse Resp B/P (MAP) Pulse Ox O2 Delivery O2 Flow Rate FiO2 02/26/17 12:10 98 Room Air 02/26/17 07:00 97.6 54 18 122/73 (89) 97.6 Imaging: SBFT 02/25/17 Impression: Meckel's diverticulum. PE: GEN: NAD LUNGS: CTAB HEART: RRR ABD: left-sided tenderness, stable NEURO/PSYCH: A & O 3, quiet A/P: N/v, abd pain, Meckel's -- Plans for surgery this afternoon, will follow. YOEL HINDS Feb 26, 2017 12:35
[2017-02-26] MEDS ORDERED: fentaNYL PF VIAL 100 MCG/2 ML VIAL ONE ×2 (13:56→15:18)
[2017-02-26] MEDS ORDERED: SUCCINYLCHOLINE 200 MG/10 ML VIAL. ONE (13:56)
[2017-02-26] MEDS ORDERED: MIDAZOLAM HCL/PF 2 MG/2 ML VIAL. ONE (13:57)
[2017-02-26] MEDS ORDERED: GLYCOPYRROLATE 1 MG/5 ML VIAL. ONE (14:44)
[2017-02-26] MEDS ORDERED: NEOSTIGMINE 10 MG/10 ML VIAL. ONE (14:44)
[2017-02-26] MEDS ORDERED: KETOROLAC 30 MG/ML INJ FOR OR. INJ ONE (14:45)
--- NOTE | 2017-02-26 15:14 | PDOC4 ---
Operative Note Operative Note Date: 02/26/2017 Preoperative diagnosis: Abdominal pain with Meckel's diverticulum Postoperative diagnosis: Same Procedure: Diagnostic laparoscopy with Meckel's diverticulectomy and appendectomy Surgeon: Alexander Specimen: Meckel's diverticulum and appendix Dictation: 21-year-old male who is mated the hospital with abdominal pain that' s been intermittent and chronic for several years underwent a small bowel follow -through was found to have a Meckel's diverticulum in the distal ileum. The procedure of diverticulectomy as well as appendectomy was explained to the patient detail was benefits were also discussed including bleeding infection injury to intra-abdominal contents possibly necessitating further or open operations alternatives to this procedure also discussed with the patient who seemed understanding gave both verbal and written consent to have the procedure performed. Patient was taken to the operating room placed in the supine position general anesthesia was initiated once patient was asleep and intubated his abdomen was prepped and draped usual sterile fashion using ChloraPrep and area just below the umbilicus was injected with quarter percent Marcaine with epinephrine and an incision was made with 11 blade scalpel a varies needle was placed within the abdomen and a pneumoperitoneum was achieved. At this point a 50 m port was placed in a Broad[employer] camera was placed within the abdomen abdomen was inspected the Meckel's diverticulum was in the right lower quadrant 2 more 5 mm ports were placed one in the right mid abdomen and one in the left lower abdomen under direct visualization. The Meckel's diverticulum was grasped retracted towards anterior abdominal wall the uterine a for limbs of the small bowel were visualized there was a fairly broad-based opening to the Meckel's diverticulum the 5 mm port at the umbilicus was switched out for a 12 mm port with allowing for an Endo MARNIE stapler to be used to staple and transect the diverticulum at the mouth along the antimesenteric side of the small bowel. The diverticulum was placed within an Endo Catch bag and removed from the umbilicus. The appendix was then visualized was quite long and somewhat retrocecal but was freed up from its attachments and a window was propagated the mesoappendix at the base the appendix a second load of Endo MARNIE was used to staple and transect the base the appendix and another load was used to staple and transect the mesoappendix the appendix was then placed within an Endo Catch bag and removed from the umbilicus. Right lower quadrant pelvis were irrigated and suctioned dry hemostasis didn't be appropriate and the pneumoperitoneum was reduced all ports removed fascial defect of the umbilicus closed figure-of- eight 0 Vicryl suture and skin was approximated all port sites 4 septic Monocryl Mastisol Steri-Strips and Band-Aids were applied as dressings. He was awakened and extubated in the operative room taken to recovery in stable condition all sponge instrument needle counts listed as correct estimated blood loss 20 mL STEPHANIE GABRIEL MD Feb 26, 2017 15:14
[2017-02-26] MEDS: ONDANSETRON PF 4 MG/2 ML VIAL. IV PRN (18:54)
[2017-02-26] MEDS: HYDROmorphone 2 MG/ML VIAL IV PRN ×2 (19:00→23:40)
[2017-02-27] MEDS: fentaNYL PF VIAL 100 MCG/2 ML VIAL IV PRN ×3 (01:34→18:05)
[2017-02-27 03:00] VITALS: BP 115/48
[2017-02-27] MEDS: IV NORMAL SALINE 1000ML BAG 1,000 ML IV SCH ×3 (03:00→23:00)
[2017-02-27] MEDS: HYDROcodone/APAP 10/325 1 TAB TABLET PO PRN ×4 (04:23→23:36)
[2017-02-27] MEDS: HYDROmorphone 2 MG/ML VIAL IV PRN ×2 (04:24→08:21)
[2017-02-27 04:44] LABS: BASO % 0 % (0-3); EOS % 0 % (0-3); HEMATOCRIT 45.8 % (39.0-53.0); HEMOGLOBIN 15.3 g/dL (13.0-17.5); LYMPH # 0.7 x10^3/uL (1.0-4.8); LYMPH % 5 % (24-48); MEAN CORPUSCULAR HEMOGLOBIN 30 pg (25-35); MEAN CORPUSCULAR HGB CONC 33 g/dL (31-37); MEAN CORPUSCULAR VOLUME 89 fL (79-100); MONO % 7 % (0-9); NEUT % 88 % (31-73); PLATELET COUNT 256 x10^3/uL (140-400); RED BLOOD COUNT 5.14 x10^6/uL (4.30-5.70); RED CELL DISTRIBUTION WIDTH 12.9 % (11.5-14.5); WHITE BLOOD COUNT 14.2 x10^3/uL (4.0-11.0)
[2017-02-27 05:16] LABS: CALCIUM 9.2 mg/dL (8.5-10.1); CREATININE 0.7 mg/dL (0.7-1.3); GFR 139.8; POTASSIUM 4.5 mmol/L (3.5-5.1)
[2017-02-27 07:00] VITALS: BP 111/69
[2017-02-27] MEDS: FOLIC ACID 1 MG TABLET. PO SCH (08:14)
[2017-02-27] MEDS: THIAMINE 100 MG TABLET. PO SCH (08:14)
[2017-02-27] MEDS: FAMOTIDINE 20 MG/2 ML VIAL IVP SCH ×2 (08:25→21:02)
[2017-02-27 10:07] LABS: PLT ESTIMATE ADEQUATE (ADEQUATE)
[2017-02-27] MEDS ORDERED: BUTORPHANOL 2 MG/ML VIAL. IV PRN ×2 (10:15)
[2017-02-27] MEDS ORDERED: KETOROLAC 30 MG/ML INJ. IV PRN (10:15)
--- NOTE | 2017-02-27 10:38 | PDOC ---
SURGICAL PROGRESS NOTE Subjective having pain girlfriend slept in bed with him last noc and when he leaned over the side of the bed to adjust it had "a sharp pain" pain meds not working "like they should" Vital Signs Vital Signs Date Time Temp Pulse Resp B/P (MAP) Pulse Ox O2 Delivery O2 Flow Rate FiO2 02/27/17 10:34 95 Room Air 02/27/17 10:24 16 02/27/17 07:00 98.2 75 111/69 (83) 98.2 02/27/17 04:24 10.0 PATIENT HAS A RODRIGUEZ: No General: Alert, Oriented X3, No acute distress Abdomen: Soft Labs Laboratory Tests Test 02/27/17 03:35 White Blood Count 14.2 x10^3/uL (4.0-11.0) Red Blood Count 5.14 x10^6/uL (4.30-5.70) Hemoglobin 15.3 g/dL (13.0-17.5) Hematocrit 45.8 % (39.0-53.0) Mean Corpuscular Volume 89 fL (79-100) Mean Corpuscular Hemoglobin 30 pg (25-35) Mean Corpuscular Hemoglobin Concent 33 g/dL (31-37) Red Cell Distribution Width 12.9 % (11.5-14.5) Platelet Count 256 x10^3/uL (140-400) Neutrophils (%) (Auto) 88 % (31-73) Lymphocytes (%) (Auto) 5 % (24-48) Monocytes (%) (Auto) 7 % (0-9) Eosinophils (%) (Auto) 0 % (0-3) Basophils (%) (Auto) 0 % (0-3) Neutrophils # (Auto) 12.4 x10^3uL (1.8-7.7) Lymphocytes # (Auto) 0.7 x10^3/uL (1.0-4.8) Monocytes # (Auto) 1.0 x10^3/uL (0.0-1.1) Eosinophils # (Auto) 0.0 x10^3/uL (0.0-0.7) Basophils # (Auto) 0.0 x10^3/uL (0.0-0.2) Segmented Neutrophils % 86 % (35-66) Band Neutrophils % 1 % (0-9) Lymphocytes % 3 % (24-48) Monocytes % 10 % (0-10) Platelet Estimate Adequate (ADEQUATE) Sodium Level 138 mmol/L (136-145) Potassium Level 4.5 mmol/L (3.5-5.1) Chloride Level 104 mmol/L (98-107) Carbon Dioxide Level 26 mmol/L (21-32) Anion Gap 8 (6-14) Blood Urea Nitrogen 11 mg/dL (8-26) Creatinine 0.7 mg/dL (0.7-1.3) Estimated GFR (Cockcroft-Gault) 139.8 Glucose Level 128 mg/dL (70-99) Calcium Level 9.2 mg/dL (8.5-10.1) Laboratory Tests Test 02/27/17 03:35 White Blood Count 14.2 x10^3/uL (4.0-11.0) Red Blood Count 5.14 x10^6/uL (4.30-5.70) Hemoglobin 15.3 g/dL (13.0-17.5) Hematocrit 45.8 % (39.0-53.0) Mean Corpuscular Volume 89 fL (79-100) Mean Corpuscular Hemoglobin 30 pg (25-35) Mean Corpuscular Hemoglobin Concent 33 g/dL (31-37) Red Cell Distribution Width 12.9 % (11.5-14.5) Platelet Count 256 x10^3/uL (140-400) Neutrophils (%) (Auto) 88 % (31-73) Lymphocytes (%) (Auto) 5 % (24-48) Monocytes (%) (Auto) 7 % (0-9) Eosinophils (%) (Auto) 0 % (0-3) Basophils (%) (Auto) 0 % (0-3) Neutrophils # (Auto) 12.4 x10^3uL (1.8-7.7) Lymphocytes # (Auto) 0.7 x10^3/uL (1.0-4.8) Monocytes # (Auto) 1.0 x10^3/uL (0.0-1.1) Eosinophils # (Auto) 0.0 x10^3/uL (0.0-0.7) Basophils # (Auto) 0.0 x10^3/uL (0.0-0.2) Segmented Neutrophils % 86 % (35-66) Band Neutrophils % 1 % (0-9) Lymphocytes % 3 % (24-48) Monocytes % 10 % (0-10) Platelet Estimate Adequate (ADEQUATE) Sodium Level 138 mmol/L (136-145) Potassium Level 4.5 mmol/L (3.5-5.1) Chloride Level 104 mmol/L (98-107) Carbon Dioxide Level 26 mmol/L (21-32) Anion Gap 8 (6-14) Blood Urea Nitrogen 11 mg/dL (8-26) Creatinine 0.7 mg/dL (0.7-1.3) Estimated GFR (Cockcroft-Gault) 139.8 Glucose Level 128 mg/dL (70-99) Calcium Level 9.2 mg/dL (8.5-10.1) Problem List Problems Medical Problems: (1) Abdominal pain Status: Acute Assessment/Plan POD 1 l/s diverticulectomy continue meds, ambulate I explained to Danie that it's normal to have some post op pain he seems to understand Problems: LOVE PERKINS MD Feb 27, 2017 10:38
[2017-02-27] MEDS: ONDANSETRON PF 4 MG/2 ML VIAL. IV PRN (10:42)
[2017-02-27 11:00] VITALS: BP 130/83
--- NOTE | 2017-02-27 11:06 | PDOC ---
G I PROGRESS NOTE Subjective "Sore". Upset re: pain meds. Did vomit once after pain shot. Has taken po. Physical Exam Abdomen with post-op tenderness. Review of Relevant I have reviewed the following items varinder (where applicable) has been applied. Labs Laboratory Tests Test 02/27/17 03:35 White Blood Count 14.2 x10^3/uL (4.0-11.0) Red Blood Count 5.14 x10^6/uL (4.30-5.70) Hemoglobin 15.3 g/dL (13.0-17.5) Hematocrit 45.8 % (39.0-53.0) Mean Corpuscular Volume 89 fL (79-100) Mean Corpuscular Hemoglobin 30 pg (25-35) Mean Corpuscular Hemoglobin Concent 33 g/dL (31-37) Red Cell Distribution Width 12.9 % (11.5-14.5) Platelet Count 256 x10^3/uL (140-400) Neutrophils (%) (Auto) 88 % (31-73) Lymphocytes (%) (Auto) 5 % (24-48) Monocytes (%) (Auto) 7 % (0-9) Eosinophils (%) (Auto) 0 % (0-3) Basophils (%) (Auto) 0 % (0-3) Neutrophils # (Auto) 12.4 x10^3uL (1.8-7.7) Lymphocytes # (Auto) 0.7 x10^3/uL (1.0-4.8) Monocytes # (Auto) 1.0 x10^3/uL (0.0-1.1) Eosinophils # (Auto) 0.0 x10^3/uL (0.0-0.7) Basophils # (Auto) 0.0 x10^3/uL (0.0-0.2) Segmented Neutrophils % 86 % (35-66) Band Neutrophils % 1 % (0-9) Lymphocytes % 3 % (24-48) Monocytes % 10 % (0-10) Platelet Estimate Adequate (ADEQUATE) Sodium Level 138 mmol/L (136-145) Potassium Level 4.5 mmol/L (3.5-5.1) Chloride Level 104 mmol/L (98-107) Carbon Dioxide Level 26 mmol/L (21-32) Anion Gap 8 (6-14) Blood Urea Nitrogen 11 mg/dL (8-26) Creatinine 0.7 mg/dL (0.7-1.3) Estimated GFR (Cockcroft-Gault) 139.8 Glucose Level 128 mg/dL (70-99) Calcium Level 9.2 mg/dL (8.5-10.1) Laboratory Tests Test 02/27/17 03:35 White Blood Count 14.2 x10^3/uL (4.0-11.0) Red Blood Count 5.14 x10^6/uL (4.30-5.70) Hemoglobin 15.3 g/dL (13.0-17.5) Hematocrit 45.8 % (39.0-53.0) Mean Corpuscular Volume 89 fL (79-100) Mean Corpuscular Hemoglobin 30 pg (25-35) Mean Corpuscular Hemoglobin Concent 33 g/dL (31-37) Red Cell Distribution Width 12.9 % (11.5-14.5) Platelet Count 256 x10^3/uL (140-400) Neutrophils (%) (Auto) 88 % (31-73) Lymphocytes (%) (Auto) 5 % (24-48) Monocytes (%) (Auto) 7 % (0-9) Eosinophils (%) (Auto) 0 % (0-3) Basophils (%) (Auto) 0 % (0-3) Neutrophils # (Auto) 12.4 x10^3uL (1.8-7.7) Lymphocytes # (Auto) 0.7 x10^3/uL (1.0-4.8) Monocytes # (Auto) 1.0 x10^3/uL (0.0-1.1) Eosinophils # (Auto) 0.0 x10^3/uL (0.0-0.7) Basophils # (Auto) 0.0 x10^3/uL (0.0-0.2) Segmented Neutrophils % 86 % (35-66) Band Neutrophils % 1 % (0-9) Lymphocytes % 3 % (24-48) Monocytes % 10 % (0-10) Platelet Estimate Adequate (ADEQUATE) Sodium Level 138 mmol/L (136-145) Potassium Level 4.5 mmol/L (3.5-5.1) Chloride Level 104 mmol/L (98-107) Carbon Dioxide Level 26 mmol/L (21-32) Anion Gap 8 (6-14) Blood Urea Nitrogen 11 mg/dL (8-26) Creatinine 0.7 mg/dL (0.7-1.3) Estimated GFR (Cockcroft-Gault) 139.8 Glucose Level 128 mg/dL (70-99) Calcium Level 9.2 mg/dL (8.5-10.1) Medications Current Medications Morphine Sulfate 2 mg PRN Q15MIN PRN IV/SQ PAIN GREATER THAN 3/10 Last administered on 02/21/17 14:12; Start 02/21/17 at 12:45; Stop 02/21/17 at 23:17 ; Status DC Sodium Chloride 1,000 ml @ 1,000 mls/hr Q1H IV Last administered on 02/21/17 12:47; Start 02/21/17 at 12:31; Stop 02/21/17 at 13:30; Status DC Ondansetron HCl (Zofran) 4 mg 1X ONCE IV Last administered on 02/21/17 12:46 ; Start 02/21/17 at 12:45; Stop 02/21/17 at 12:46; Status DC Iohexol (Omnipaque 300 Mg/ml) 75 ml 1X ONCE IV Last administered on 02/21/17 13:57; Start 02/21/17 at 13:30; Stop 02/21/17 at 13:31; Status DC Iohexol (Omnipaque 240 Mg/ml) 50 ml 1X ONCE PO Last administered on 02/21/17 13:57; Start 02/21/17 at 13:30; Stop 02/21/17 at 13:31; Status DC Info (Do NOT chart on this entry -- for MONITORING) 1 each PRN DAILY PRN MC SEE COMMENTS; Start 02/21/17 at 13:30; Stop 02/23/17 at 13:29; Status DC Ondansetron HCl (Zofran) 4 mg 1X ONCE IV Last administered on 02/21/17 14:43 ; Start 02/21/17 at 14:45; Stop 02/21/17 at 14:46; Status DC Ciprofloxacin/ Dextrose 200 ml @ 200 mls/hr Q12HR IV Last administered on 02/23 09:18; Start 02/21/17 at 21:00; Stop 02/23/17 at 11:52; Status DC Metronidazole 100 ml @ 100 mls/hr Q8HRS IV ; Start 02/21/17 at 22:00; Stop 02/21/17 at 22:00; Status DC Metronidazole 100 ml @ 100 mls/hr 1X ONCE IV ; Start 02/21/17 at 15:15; Stop 02/21/17 at 16:14; Status DC Ciprofloxacin/ Dextrose 200 ml @ 200 mls/hr 1X ONCE IV Last administered on 02/21/17 19:16; Start 02/21/17 at 15:15; Stop 02/21/17 at 16:14; Status DC Metronidazole 100 ml @ 100 mls/hr BID IV Last administered on 02/23/17 09:18 ; Start 02/21/17 at 18:00; Stop 02/23/17 at 11:52; Status DC Acetaminophen (Tylenol) 650 mg PRN Q6HRS PRN PO FEVER; Start 02/21/17 at 16:45 Ondansetron HCl (Zofran) 4 mg PRN Q6HRS PRN IV NAUSEA/VOMITING, 1ST CHOICE Last administered on 02/27/17 10:42; Start 02/21/17 at 16:45 Morphine Sulfate 2 mg PRN Q2HR PRN IV PAIN Last administered on 02/21/17 19:53 ; Start 02/21/17 at 16:45; Stop 02/21/17 at 23:17; Status DC Tramadol HCl (Ultram) 50 mg PRN Q6HRS PRN PO PAIN; Start 02/21/17 at 16:45; Stop 02/23/17 at 19:28; Status DC Hydralazine HCl (Apresoline Inj) 10 mg PRN Q4HRS PRN IVP ELEVATED BP, SEE COMMENTS; Start 02/21/17 at 16:45 Docusate Sodium (Colace) 100 mg PRN DAILY PRN PO CONSTIPATION; Start 02/21/17 at 16:45 Pantoprazole Sodium (Protonix) 40 mg DAILYAC PO Last administered on 02/24/17 08:00; Start 02/21/17 at 17:15; Stop 02/24/17 at 14:37; Status DC Enoxaparin Sodium (Lovenox 40mg Syringe) 40 mg Q24H SQ ; Start 02/22/17 at 08:00 ; Stop 02/24/17 at 10:36; Status DC Acetaminophen/ Hydrocodone Bitart (Lortab 5/325) 1 tab PRN Q4HRS PRN PO PAIN Last administered on 02/24/17 09:22; Start 02/21/17 at 16:45; Stop 02/25/17 at 14:25; Status DC Sodium Chloride 1,000 ml @ 100 mls/hr Q10H IV Last administered on 02/27/17 04:23; Start 02/21/17 at 17:00 Lorazepam (Ativan) 2 mg PRN Q4HRS PRN IV ANXIETY / AGITATION Last administered on 02/27/17 08:24; Start 02/21/17 at 17:00 Folic Acid (Folic Acid) 1 mg DAILY PO Last administered on 02/24/17 07:59; Start 02/21/17 at 18:00 Thiamine Mononitrate (Vitamin B-1) 100 mg DAILY PO Last administered on 08:06; Start 02/21/17 at 18:00 Albuterol Sulfate (Ventolin Neb Soln) 2.5 mg PRN Q4HRS PRN NEB SHORTNESS OF BREATH; Start 02/21/17 at 18:30 Guaifenesin (Robitussin) 200 mg PRN Q4HRS PRN PO COUGH Last administered on 09:33; Start 02/21/17 at 18:30; Stop 02/26/17 at 18:33; Status DC Morphine Sulfate 2 mg PRN Q2HR PRN IV PAIN Last administered on 02/23/17 09:15 ; Start 02/21/17 at 23:30; Stop 02/23/17 at 19:28; Status DC Prochlorperazine Edisylate (Compazine) 10 mg PRN Q6HRS PRN IV NAUSEA/VOMITING Last administered on 02/22/17 11:17; Start 02/22/17 at 11:00; Stop 02/23/17 at 19:28; Status DC Fentanyl Citrate (Fentanyl 2ml Vial) 50 mcg PRN Q2HR PRN IV PAIN SEVERE Last administered on 02/27/17 01:34; Start 02/23/17 at 12:15 Promethazine HCl 12.5 mg/Dextrose 50.5 ml @ 151.5 mls/ hr PRN Q6HRS PRN IV NAUSEA/VOMITING, 2ND CHOICE Last administered on 02/24/17 09:21; Start at 13:15; Stop 02/24/17 at 14:26; Status DC Promethazine HCl 12.5 mg/Sodium Chloride 50.5 ml @ 151.5 mls/ hr PRN Q6HRS PRN IV NAUSEA/VOMITING, 2ND CHOICE Last administered on 02/25/17 17:23; Start 02/24/17 at 14:26 Famotidine (Pepcid) 20 mg BID IVP Last administered on 02/27/17 08:25; Start 02/24/17 at 21:00 Hydromorphone HCl (Dilaudid) 0.4 mg PRN Q4HRS PRN IVP PAIN UNRELIEVED BY FENTANYL Last administered on 02/26/17 16:36; Start 02/24/17 at 14:45; Stop 02/26/17 at 18:33; Status DC Barium Sulfate (Liquid E-Z Paque) 710 ml 1X ONCE PO Last administered on 09:20; Start 02/25/17 at 08:30; Stop 02/25/17 at 08:35; Status DC Acetaminophen/ Hydrocodone Bitart (Lortab 10/325) 1 tab DAILY PO Last administered on 02/26/17 18:20; Start 02/26/17 at 09:00 Acetaminophen/ Hydrocodone Bitart (Lortab 10/325) 1 tab PRN Q6HRS PRN PO PAIN Last administered on 02/26/17 02:12; Start 02/25/17 at 14:30; Stop 02/26/17 at 18:35; Status DC Cefazolin Sodium/ Dextrose 50 ml @ 100 mls/hr 1X PERIOP IV Last administered on 02/26/17 14:33; Start 02/25/17 at 15:00; Stop 02/26/17 at 18:43; Status DC Ondansetron HCl (Zofran) 4 mg PRN Q6HRS PRN IV NAUSEA/VOMITING; Start at 07:00; Stop 02/27/17 at 06:59; Status DC Fentanyl Citrate (Fentanyl 2ml Vial) 25 mcg PRN Q5MIN PRN IV MILD PAIN; Start 02/26/17 at 07:00; Stop 02/26/17 at 18:33; Status DC Fentanyl Citrate (Fentanyl 2ml Vial) 50 mcg PRN Q5MIN PRN IV MODERATE PAIN Last administered on 02/26/17t 16:03; Start 02/26/17 at 07:00; Stop 02/26/17 at 18:33; Status DC Ringer's Solution 1,000 ml @ 30 mls/hr Q24H IV ; Start 02/26/17 at 07:00; Stop 02/26/17 at 18:59; Status DC Lidocaine HCl (Xylocaine-Mpf 1% Vial) 2 ml PRN 1X PRN ID PRIOR TO IV START; Start 02/26/17 at 07:00; Stop 02/27/17 at 06:59; Status DC Bupivacaine HCl/ Epinephrine Bitart (Marcaine-Epi 0.25%-1:005915) 50 ml STK-MED ONCE .ROUTE Last administered on 02/26/17t 15:54; Start 02/26/17 at 07:43; Stop 02/26/17 at 18:33; Status DC Propofol 20 ml @ As Directed STK-MED ONCE IV ; Start 02/26/17 at 12:18; Stop 02/26/17 at 18:33; Status DC Lidocaine HCl (Lidocaine Pf 2% Vial) 5 ml STK-MED ONCE .ROUTE ; Start 02/26/17 at 12:19; Stop 02/26/17 at 18:33; Status DC Rocuronium [place] (Zemuron) 50 mg STK-MED ONCE .ROUTE ; Start 02/26/17 at 12: 19; Stop 02/26/17 at 18:33; Status DC Dexamethasone Sodium Phosphate (Decadron) 20 mg STK-MED ONCE .ROUTE ; Start 02/02 at 12:19; Stop 02/26/17 at 18:33; Status DC Ondansetron HCl (Zofran) 4 mg STK-MED ONCE .ROUTE ; Start 02/26/17 at 12:19; Stop 02/26/17 at 18:33; Status DC Succinylcholine Chloride (Anectine) 200 mg STK-MED ONCE .ROUTE ; Start at 13:56; Stop 02/26/17 at 18:33; Status DC Fentanyl Citrate (Fentanyl 2ml Vial) 100 mcg STK-MED ONCE .ROUTE ; Start at 13:56; Stop 02/26/17 at 18:33; Status DC Midazolam HCl (Versed) 2 mg STK-MED ONCE .ROUTE ; Start 02/26/17 at 13:57; Stop 02/26/17 at 18:33; Status DC Neostigmine Methylsulfate (Bloxiverz) 10 mg STK-MED ONCE .ROUTE ; Start at 14:44; Stop 02/26/17 at 18:33; Status DC Glycopyrrolate (Robinul) 1 mg STK-MED ONCE .ROUTE ; Start 02/26/17 at 14:44; Stop 02/26/17 at 18:33; Status DC Ketorolac Tromethamine (Toradol For Or Only) 30 mg STK-MED ONCE INJ ; Start 02/02 at 14:45; Stop 02/26/17 at 18:33; Status DC Fentanyl Citrate (Fentanyl 2ml Vial) 100 mcg STK-MED ONCE .ROUTE ; Start at 15:18; Stop 02/26/17 at 18:33; Status DC Acetaminophen/ Hydrocodone Bitart (Lortab 10) 1 tab PRN Q4HRS PRN PO PAIN MILD TO MOD Last administered on 02/27/17t 05:19; Start 02/26/17 at 18:45 Hydromorphone HCl (Dilaudid) 1 mg PRN Q4HRS PRN IV PAIN Last administered on 08:21; Start 02/26/17 at 18:45 Ketorolac Tromethamine (Toradol) 30 mg PRN Q6HRS PRN IV PAIN Last administered on 02/27/17 10:24; Start 02/27/17 at 10:15; Stop 03/04/17 at 10:14 Butorphanol Tartrate (Stadol) 2 mg PRN Q6HRS PRN IV PAIN Last administered on 02/27/17 10:24; Start 02/27/17 at 10:15 Butorphanol Tartrate (Stadol) 1 mg PRN Q6HRS PRN IV PAIN; Start 02/27/17 at 10 :15 Vitals/I & O Vital Sign - Last 24 Hours 02/26/17 02/26/17 02/26/17 02/26/17 12:10 13:12 15:22 15:22 Temp 98.7 97.5 98.7 97.5 Pulse 74 64 Resp 20 20 B/P (MAP) 127/71 116/73 Pulse Ox 98 98 100 O2 Delivery Room Air Room Air Mask Simple Mask O2 Flow Rate 10 10 02/26/17 02/26/17 02/26/17 02/26/17 15:37 15:51 15:55 16:03 Temp 97.0 97.0 Pulse 62 66 Resp 20 20 20 20 B/P (MAP) 127/71 123/63 Pulse Ox 97 96 99 99 O2 Delivery Room Air Room Air Room Air Room Air 02/26/17 02/26/17 02/26/17 02/26/17 16:36 16:36 16:36 16:47 Temp 97.7 97.7 Pulse 71 Resp 18 B/P (MAP) 112/67 (82) Pulse Ox 99 99 96 O2 Delivery Room Air Room Air Room Air O2 Flow Rate 10.0 10.0 10.0 02/26/17 02/26/17 02/26/17 02/26/17 17:00 17:15 17:26 17:30 Temp 97.7 97.7 97.7 97.7 97.7 97.7 Pulse 64 95 Resp 18 18 16 18 B/P (MAP) 112/67 (82) 121/67 (85) Pulse Ox 93 96 96 97 O2 Delivery Room Air Room Air Room Air Room Air 02/26/17 02/26/17 02/26/17 02/26/17 17:45 18:00 18:19 18:20 Temp 97.7 97.7 97.7 97.7 Pulse 73 72 Resp 18 18 B/P (MAP) 115/61 (79) Pulse Ox 93 96 96 96 O2 Delivery Room Air Room Air Room Air Room Air O2 Flow Rate 10.0 02/26/17 02/26/17 02/26/17 02/26/17 19:00 19:00 19:20 20:00 Temp 97.7 97.7 Pulse 97 Resp 18 16 B/P (MAP) 128/75 (92) Pulse Ox 96 97 96 O2 Delivery Room Air Room Air Mask 02/26/17 02/26/17 02/26/1702/26/17 20:16 22:08 23:00 23:40 Temp 98.1 98.1 Pulse 87 Resp 16 16 18 20 B/P (MAP) 129/69 (89) Pulse Ox 96 96 95 96 O2 Delivery Room Air Room Air Room Air 02/26/17 02/27/17 02/27/17 02/27/17 23:44 01:34 02:04 03:00 Temp 97.7 97.7 Pulse 77 Resp 20 16 16 16 B/P (MAP) 115/48 (70) Pulse Ox 96 96 96 O2 Delivery Room Air Room Air O2 Flow Rate 10.0 96.0 02/27/17 02/27/17 02/27/17 02/27/17 04:24 04:54 05:19 06:19 Resp 16 16 16 Pulse Ox 96 96 96 96 O2 Delivery Room Air O2 Flow Rate 10.0 02/27/17 02/27/17 02/27/17 02/27/17 07:00 08:21 08:51 10:24 Temp 98.2 98.2 Pulse 75 Resp 18 16 16 16 B/P (MAP) 111/69 (83) Pulse Ox 96 O2 Delivery Room Air Room Air Room Air Room Air 02/27/17 10:34 Pulse Ox 95 O2 Delivery Room Air Problem List Problems Medical Problems: (1) Abdominal pain Status: Acute Assessment POD #1, Meckel's diverticulectomy/appy. Plan of Care Note Diet, etc. per surgery service. FERNIE GARAY MD Feb 27, 2017 11:06
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
[2017-02-27] MEDS ORDERED: HYDROmorphone 2 MG/ML VIAL IV PRN (12:15)
[2017-02-27] MEDS: oxyCODONE/APAP 7.5/325 1 TAB TABLET PO PRN ×2 (16:52→21:05)
[2017-02-27 16:54] VITALS: BP 122/72
[2017-02-27 19:00] VITALS: BP 128/71
[2017-02-27 23:00] VITALS: BP 131/85
[2017-02-28 03:00] VITALS: BP 133/87
[2017-02-28 05:06] LABS: BASO % 0 % (0-3); EOS % 1 % (0-3); HEMATOCRIT 43.5 % (39.0-53.0); HEMOGLOBIN 14.5 g/dL (13.0-17.5); LYMPH % 28 % (24-48); MEAN CORPUSCULAR HEMOGLOBIN 30 pg (25-35); MEAN CORPUSCULAR HGB CONC 33 g/dL (31-37); MEAN CORPUSCULAR VOLUME 90 fL (79-100); MONO % 9 % (0-9); NEUT % 62 % (31-73); PLATELET COUNT 215 x10^3/uL (140-400); RED BLOOD COUNT 4.82 x10^6/uL (4.30-5.70); RED CELL DISTRIBUTION WIDTH 13.2 % (11.5-14.5); WHITE BLOOD COUNT 10.6 x10^3/uL (4.0-11.0)
[2017-02-28 05:40] LABS: CREATININE 0.8 mg/dL (0.7-1.3); GFR 119.8; POTASSIUM 3.9 mmol/L (3.5-5.1)
[2017-02-28 07:00] VITALS: BP 129/75
[2017-02-28] MEDS: FAMOTIDINE 20 MG/2 ML VIAL IVP SCH (09:00)
[2017-02-28] MEDS: FOLIC ACID 1 MG TABLET. PO SCH (09:00)
[2017-02-28] MEDS: IV NORMAL SALINE 1000ML BAG 1,000 ML IV SCH (09:00)
[2017-02-28] MEDS: THIAMINE 100 MG TABLET. PO SCH (09:00)
--- NOTE | 2017-02-28 10:48 | PDOC ---
Provider Note Provider Note SURG sleeping soundly I did not wake him no new surgical recs LOVE PERKINS MD Feb 28, 2017 10:48
[2017-02-28] MEDS: HYDROcodone/APAP 10/325 1 TAB TABLET PO PRN (11:48)
--- NOTE | 2017-02-28 14:06 | PDOC ---
PROGRESS NOTES Chief Complaint Chief Complaint Meckel's diverticulum Arug abuse with marijuana Heavy drinker Tobaccoism GERD History of Present Illness History of Present Illness This is a nice 21 year old man who was admitted to the hospital with a cc of abdominal pain. On 2016 he had a surgery for Meckel's diverticulum. Today he was examined at bedside and is in no acute distress. No new complains today and is having "a better day.". He was given prescription for hydrocodone 7.5 mg #20 tablets PO q6 prn and ativan 1mg #20 tablets He is being followed by GI re: abd pain, Gen Surg re: Meckel's diverticulum. Possible discharge today if ok with specialists. Vitals Vitals Vital Signs Date Time Temp Pulse Resp B/P (MAP) Pulse Ox O2 Delivery O2 Flow Rate FiO2 02/28/17 11:48 16 Room Air 02/28/17 07:00 97.5 65 129/75 (93) 98 97.5 Physical Exam General: Alert, Oriented X3, No acute distress Heart: Regular rate, Normal S1, Normal S2, No murmurs Lungs: Clear Abdomen: Soft Extremities: No cyanosis, No edema Skin: No rashes, No significant lesion Labs LABS Laboratory Tests Test 02/28/17 04:05 White Blood Count 10.6 x10^3/uL (4.0-11.0) Red Blood Count 4.82 x10^6/uL (4.30-5.70) Hemoglobin 14.5 g/dL (13.0-17.5) Hematocrit 43.5 % (39.0-53.0) Mean Corpuscular Volume 90 fL (79-100) Mean Corpuscular Hemoglobin 30 pg (25-35) Mean Corpuscular Hemoglobin Concent 33 g/dL (31-37) Red Cell Distribution Width 13.2 % (11.5-14.5) Platelet Count 215 x10^3/uL (140-400) Neutrophils (%) (Auto) 62 % (31-73) Lymphocytes (%) (Auto) 28 % (24-48) Monocytes (%) (Auto) 9 % (0-9) Eosinophils (%) (Auto) 1 % (0-3) Basophils (%) (Auto) 0 % (0-3) Neutrophils # (Auto) 6.6 x10^3uL (1.8-7.7) Lymphocytes # (Auto) 3.0 x10^3/uL (1.0-4.8) Monocytes # (Auto) 0.9 x10^3/uL (0.0-1.1) Eosinophils # (Auto) 0.1 x10^3/uL (0.0-0.7) Basophils # (Auto) 0.0 x10^3/uL (0.0-0.2) Sodium Level 140 mmol/L (136-145) Potassium Level 3.9 mmol/L (3.5-5.1) Chloride Level 105 mmol/L (98-107) Carbon Dioxide Level 28 mmol/L (21-32) Anion Gap 7 (6-14) Blood Urea Nitrogen 13 mg/dL (8-26) Creatinine 0.8 mg/dL (0.7-1.3) Estimated GFR (Cockcroft-Gault) 119.8 Glucose Level 89 mg/dL (70-99) Calcium Level 9.0 mg/dL (8.5-10.1) Review of Systems Review of Systems fatigue and weakness Assessment and Plan Assessmemt and Plan Problems Medical Problems: (1) Abdominal pain Status: Acute Assessment: Meckel's diverticulum Arug abuse with marijuana Heavy drinker Tobaccoism GERD Plan: Hydrocodone 7.5 mg #20 q6 prn Ativan 1mg #20 Discharge home if ok with specialists Continue home medications PT/OT Wound care Problems: Comment Review of Relevant I have reviewed the following items varinder (where applicable) has been applied. Labs Laboratory Tests Test 02/27/17 03:35 02/28/17 04:05 White Blood Count 14.2 x10^3/uL (4.0-11.0) 10.6 x10^3/uL (4.0-11.0) Red Blood Count 5.14 x10^6/uL (4.30-5.70) 4.82 x10^6/uL (4.30-5.70) Hemoglobin 15.3 g/dL (13.0-17.5) 14.5 g/dL (13.0-17.5) Hematocrit 45.8 % (39.0-53.0) 43.5 % (39.0-53.0) Mean Corpuscular Volume 89 fL (79-100) 90 fL (79-100) Mean Corpuscular Hemoglobin 30 pg (25-35) 30 pg (25-35) Mean Corpuscular Hemoglobin Concent 33 g/dL (31-37) 33 g/dL (31-37) Red Cell Distribution Width 12.9 % (11.5-14.5) 13.2 % (11.5-14.5) Platelet Count 256 x10^3/uL (140-400) 215 x10^3/uL (140-400) Neutrophils (%) (Auto) 88 % (31-73) 62 % (31-73) Lymphocytes (%) (Auto) 5 % (24-48) 28 % (24-48) Monocytes (%) (Auto) 7 % (0-9) 9 % (0-9) Eosinophils (%) (Auto) 0 % (0-3) 1 % (0-3) Basophils (%) (Auto) 0 % (0-3) 0 % (0-3) Neutrophils # (Auto) 12.4 x10^3uL (1.8-7.7) 6.6 x10^3uL (1.8-7.7) Lymphocytes # (Auto) 0.7 x10^3/uL (1.0-4.8) 3.0 x10^3/uL (1.0-4.8) Monocytes # (Auto) 1.0 x10^3/uL (0.0-1.1) 0.9 x10^3/uL (0.0-1.1) Eosinophils # (Auto) 0.0 x10^3/uL (0.0-0.7) 0.1 x10^3/uL (0.0-0.7) Basophils # (Auto) 0.0 x10^3/uL (0.0-0.2) 0.0 x10^3/uL (0.0-0.2) Segmented Neutrophils % 86 % (35-66) Band Neutrophils % 1 % (0-9) Lymphocytes % 3 % (24-48) Monocytes % 10 % (0-10) Platelet Estimate Adequate (ADEQUATE) Sodium Level 138 mmol/L (136-145) 140 mmol/L (136-145) Potassium Level 4.5 mmol/L (3.5-5.1) 3.9 mmol/L (3.5-5.1) Chloride Level 104 mmol/L (98-107) 105 mmol/L (98-107) Carbon Dioxide Level 26 mmol/L (21-32) 28 mmol/L (21-32) Anion Gap 8 (6-14) 7 (6-14) Blood Urea Nitrogen 11 mg/dL (8-26) 13 mg/dL (8-26) Creatinine 0.7 mg/dL (0.7-1.3) 0.8 mg/dL (0.7-1.3) Estimated GFR (Cockcroft-Gault) 139.8 119.8 Glucose Level 128 mg/dL (70-99) 89 mg/dL (70-99) Calcium Level 9.2 mg/dL (8.5-10.1) 9.0 mg/dL (8.5-10.1) Laboratory Tests Test 02/28/17 04:05 White Blood Count 10.6 x10^3/uL (4.0-11.0) Red Blood Count 4.82 x10^6/uL (4.30-5.70) Hemoglobin 14.5 g/dL (13.0-17.5) Hematocrit 43.5 % (39.0-53.0) Mean Corpuscular Volume 90 fL (79-100) Mean Corpuscular Hemoglobin 30 pg (25-35) Mean Corpuscular Hemoglobin Concent 33 g/dL (31-37) Red Cell Distribution Width 13.2 % (11.5-14.5) Platelet Count 215 x10^3/uL (140-400) Neutrophils (%) (Auto) 62 % (31-73) Lymphocytes (%) (Auto) 28 % (24-48) Monocytes (%) (Auto) 9 % (0-9) Eosinophils (%) (Auto) 1 % (0-3) Basophils (%) (Auto) 0 % (0-3) Neutrophils # (Auto) 6.6 x10^3uL (1.8-7.7) Lymphocytes # (Auto) 3.0 x10^3/uL (1.0-4.8) Monocytes # (Auto) 0.9 x10^3/uL (0.0-1.1) Eosinophils # (Auto) 0.1 x10^3/uL (0.0-0.7) Basophils # (Auto) 0.0 x10^3/uL (0.0-0.2) Sodium Level 140 mmol/L (136-145) Potassium Level 3.9 mmol/L (3.5-5.1) Chloride Level 105 mmol/L (98-107) Carbon Dioxide Level 28 mmol/L (21-32) Anion Gap 7 (6-14) Blood Urea Nitrogen 13 mg/dL (8-26) Creatinine 0.8 mg/dL (0.7-1.3) Estimated GFR (Cockcroft-Gault) 119.8 Glucose Level 89 mg/dL (70-99) Calcium Level 9.0 mg/dL (8.5-10.1) Medications Current Medications Morphine Sulfate 2 mg PRN Q15MIN PRN IV/SQ PAIN GREATER THAN 3/10 Last administered on 02/21/17 14:12; Start 02/21/17 at 12:45; Stop 02/21/17 at 23:17 ; Status DC Sodium Chloride 1,000 ml @ 1,000 mls/hr Q1H IV Last administered on 02/21/17 12:47; Start 02/21/17 at 12:31; Stop 02/21/17 at 13:30; Status DC Ondansetron HCl (Zofran) 4 mg 1X ONCE IV Last administered on 02/21/17 12:46 ; Start 02/21/17 at 12:45; Stop 02/21/17 at 12:46; Status DC Iohexol (Omnipaque 300 Mg/ml) 75 ml 1X ONCE IV Last administered on 02/21/17 13:57; Start 02/21/17 at 13:30; Stop 02/21/17 at 13:31; Status DC Iohexol (Omnipaque 240 Mg/ml) 50 ml 1X ONCE PO Last administered on 02/21/17 13:57; Start 02/21/17 at 13:30; Stop 02/21/17 at 13:31; Status DC Info (Do NOT chart on this entry -- for MONITORING) 1 each PRN DAILY PRN MC SEE COMMENTS; Start 02/21/17 at 13:30; Stop 02/23/17 at 13:29; Status DC Ondansetron HCl (Zofran) 4 mg 1X ONCE IV Last administered on 02/21/17 14:43 ; Start 02/21/17 at 14:45; Stop 02/21/17 at 14:46; Status DC Ciprofloxacin/ Dextrose 200 ml @ 200 mls/hr Q12HR IV Last administered on 02/23 09:18; Start 02/21/17 at 21:00; Stop 02/23/17 at 11:52; Status DC Metronidazole 100 ml @ 100 mls/hr Q8HRS IV ; Start 02/21/17 at 22:00; Stop 02/21/17 at 22:00; Status DC Metronidazole 100 ml @ 100 mls/hr 1X ONCE IV ; Start 02/21/17 at 15:15; Stop 02/21/17 at 16:14; Status DC Ciprofloxacin/ Dextrose 200 ml @ 200 mls/hr 1X ONCE IV Last administered on 02/21/17 19:16; Start 02/21/17 at 15:15; Stop 02/21/17 at 16:14; Status DC Metronidazole 100 ml @ 100 mls/hr BID IV Last administered on 02/23/17 09:18 ; Start 02/21/17 at 18:00; Stop 02/23/17 at 11:52; Status DC Acetaminophen (Tylenol) 650 mg PRN Q6HRS PRN PO FEVER; Start 02/21/17 at 16:45 Ondansetron HCl (Zofran) 4 mg PRN Q6HRS PRN IV NAUSEA/VOMITING, 1ST CHOICE Last administered on 02/27/17 10:42; Start 02/21/17 at 16:45 Morphine Sulfate 2 mg PRN Q2HR PRN IV PAIN Last administered on 02/21/17 19:53 ; Start 02/21/17 at 16:45; Stop 02/21/17 at 23:17; Status DC Tramadol HCl (Ultram) 50 mg PRN Q6HRS PRN PO PAIN; Start 02/21/17 at 16:45; Stop 02/23/17 at 19:28; Status DC Hydralazine HCl (Apresoline Inj) 10 mg PRN Q4HRS PRN IVP ELEVATED BP, SEE COMMENTS; Start 02/21/17 at 16:45 Docusate Sodium (Colace) 100 mg PRN DAILY PRN PO CONSTIPATION; Start 02/21/17 at 16:45 Pantoprazole Sodium (Protonix) 40 mg DAILYAC PO Last administered on 02/24/17 08:00; Start 02/21/17 at 17:15; Stop 02/24/17 at 14:37; Status DC Enoxaparin Sodium (Lovenox 40mg Syringe) 40 mg Q24H SQ ; Start 02/22/17 at 08:00 ; Stop 02/24/17 at 10:36; Status DC Acetaminophen/ Hydrocodone Bitart (Lortab 5/325) 1 tab PRN Q4HRS PRN PO PAIN Last administered on 02/24/17 09:22; Start 02/21/17 at 16:45; Stop 02/25/17 at 14:25; Status DC Sodium Chloride 1,000 ml @ 100 mls/hr Q10H IV Last administered on 02/27/17 04:23; Start 02/21/17 at 17:00 Lorazepam (Ativan) 2 mg PRN Q4HRS PRN IV ANXIETY / AGITATION Last administered on 02/28/17 02:40; Start 02/21/17 at 17:00 Folic Acid (Folic Acid) 1 mg DAILY PO Last administered on 02/24/17 07:59; Start 02/21/17 at 18:00 Thiamine Mononitrate (Vitamin B-1) 100 mg DAILY PO Last administered on 08:06; Start 02/21/17 at 18:00 Albuterol Sulfate (Ventolin Neb Soln) 2.5 mg PRN Q4HRS PRN NEB SHORTNESS OF BREATH; Start 02/21/17 at 18:30 Guaifenesin (Robitussin) 200 mg PRN Q4HRS PRN PO COUGH Last administered on 09:33; Start 02/21/17 at 18:30; Stop 02/26/17 at 18:33; Status DC Morphine Sulfate 2 mg PRN Q2HR PRN IV PAIN Last administered on 02/23/17 09:15 ; Start 02/21/17 at 23:30; Stop 02/23/17 at 19:28; Status DC Prochlorperazine Edisylate (Compazine) 10 mg PRN Q6HRS PRN IV NAUSEA/VOMITING Last administered on 02/22/17 11:17; Start 02/22/17 at 11:00; Stop 02/23/17 at 19:28; Status DC Fentanyl Citrate (Fentanyl 2ml Vial) 50 mcg PRN Q2HR PRN IV PAIN SEVERE Last administered on 02/27/17 18:05; Start 02/23/17 at 12:15 Promethazine HCl 12.5 mg/Dextrose 50.5 ml @ 151.5 mls/ hr PRN Q6HRS PRN IV NAUSEA/VOMITING, 2ND CHOICE Last administered on 02/24/17 09:21; Start at 13:15; Stop 02/24/17 at 14:26; Status DC Promethazine HCl 12.5 mg/Sodium Chloride 50.5 ml @ 151.5 mls/ hr PRN Q6HRS PRN IV NAUSEA/VOMITING, 2ND CHOICE Last administered on 02/25/17 17:23; Start 02/24/17 at 14:26 Famotidine (Pepcid) 20 mg BID IVP Last administered on 02/27/17 21:02; Start 02/24/17 at 21:00 Hydromorphone HCl (Dilaudid) 0.4 mg PRN Q4HRS PRN IVP PAIN UNRELIEVED BY FENTANYL Last administered on 02/26/17 16:36; Start 02/24/17 at 14:45; Stop 02/26/17 at 18:33; Status DC Barium Sulfate (Liquid E-Z Paque) 710 ml 1X ONCE PO Last administered on 09:20; Start 02/25/17 at 08:30; Stop 02/25/17 at 08:35; Status DC Acetaminophen/ Hydrocodone Bitart (Lortab 10/325) 1 tab DAILY PO Last administered on 02/26/17 18:20; Start 02/26/17 at 09:00; Stop 02/27/17 at 12 :11; Status DC Acetaminophen/ Hydrocodone Bitart (Lortab 10/325) 1 tab PRN Q6HRS PRN PO PAIN Last administered on 02/26/17 02:12; Start 02/25/17 at 14:30; Stop 02/26/17 at 18:35; Status DC Cefazolin Sodium/ Dextrose 50 ml @ 100 mls/hr 1X PERIOP IV Last administered on 11/10/17at 14:33; Start 02/25/17 at 15:00; Stop 02/26/17 at 18:43; Status DC Ondansetron HCl (Zofran) 4 mg PRN Q6HRS PRN IV NAUSEA/VOMITING; Start at 07:00; Stop 02/27/17 at 06:59; Status DC Fentanyl Citrate (Fentanyl 2ml Vial) 25 mcg PRN Q5MIN PRN IV MILD PAIN; Start 02/26/17 at 07:00; Stop 02/26/17 at 18:33; Status DC Fentanyl Citrate (Fentanyl 2ml Vial) 50 mcg PRN Q5MIN PRN IV MODERATE PAIN Last administered on 02/26/17 16:03; Start 02/26/17 at 07:00; Stop 02/26/17 at 18:33; Status DC Ringer's Solution 1,000 ml @ 30 mls/hr Q24H IV ; Start 02/26/17 at 07:00; Stop 02/26/17 at 18:59; Status DC Lidocaine HCl (Xylocaine-Mpf 1% Vial) 2 ml PRN 1X PRN ID PRIOR TO IV START; Start 02/26/17 at 07:00; Stop 02/27/17 at 06:59; Status DC Bupivacaine HCl/ Epinephrine Bitart (Marcaine-Epi 0.25%-1:[id number]) 50 ml STK-MED ONCE .ROUTE Last administered on 02/26/17 15:54; Start 02/26/17 at 07:43; Stop 02/26/17 at 18:33; Status DC Propofol 20 ml @ As Directed STK-MED ONCE IV ; Start 02/26/17 at 12:18; Stop 02/26/17 at 18:33; Status DC Lidocaine HCl (Lidocaine Pf 2% Vial) 5 ml STK-MED ONCE .ROUTE ; Start 02/26/17 at 12:19; Stop 02/26/17 at 18:33; Status DC Rocuronium [place] (Zemuron) 50 mg STK-MED ONCE .ROUTE ; Start 02/26/17 at 12: 19; Stop 02/26/17 at 18:33; Status DC Dexamethasone Sodium Phosphate (Decadron) 20 mg STK-MED ONCE .ROUTE ; Start 02/02 at 12:19; Stop 02/26/17 at 18:33; Status DC Ondansetron HCl (Zofran) 4 mg STK-MED ONCE .ROUTE ; Start 02/26/17 at 12:19; Stop 02/26/17 at 18:33; Status DC Succinylcholine Chloride (Anectine) 200 mg STK-MED ONCE .ROUTE ; Start at 13:56; Stop 02/26/17 at 18:33; Status DC Fentanyl Citrate (Fentanyl 2ml Vial) 100 mcg STK-MED ONCE .ROUTE ; Start at 13:56; Stop 02/26/17 at 18:33; Status DC Midazolam HCl (Versed) 2 mg STK-MED ONCE .ROUTE ; Start 02/26/17 at 13:57; Stop 02/26/17 at 18:33; Status DC Neostigmine Methylsulfate (Bloxiverz) 10 mg STK-MED ONCE .ROUTE ; Start at 14:44; Stop 02/26/17 at 18:33; Status DC Glycopyrrolate (Robinul) 1 mg STK-MED ONCE .ROUTE ; Start 02/26/17 at 14:44; Stop 02/26/17 at 18:33; Status DC Ketorolac Tromethamine (Toradol For Or Only) 30 mg STK-MED ONCE INJ ; Start 02/02 at 14:45; Stop 02/26/17 at 18:33; Status DC Fentanyl Citrate (Fentanyl 2ml Vial) 100 mcg STK-MED ONCE .ROUTE ; Start at 15:18; Stop 02/26/17 at 18:33; Status DC Acetaminophen/ Hydrocodone Bitart (Lortab 10/325) 1 tab PRN Q4HRS PRN PO PAIN MILD TO MOD Last administered on 02/28/17 11:48; Start 02/26/17 at 18:45 Hydromorphone HCl (Dilaudid) 1 mg PRN Q4HRS PRN IV PAIN Last administered on 08:21; Start 02/26/17 at 18:45; Stop 02/27/17 at 12:07; Status DC Ketorolac Tromethamine (Toradol) 30 mg PRN Q6HRS PRN IV PAIN Last administered on 02/27/17 10:24; Start 02/27/17 at 10:15; Stop 03/04/17 at 10:14 Butorphanol Tartrate (Stadol) 2 mg PRN Q6HRS PRN IV PAIN Last administered on 02/27/17 10:24; Start 02/27/17 at 10:15 Butorphanol Tartrate (Stadol) 1 mg PRN Q6HRS PRN IV PAIN; Start 02/27/17 at 10 :15 Hydromorphone HCl (Dilaudid) 1.5 mg PRN Q4HRS PRN IV PAIN Last administered on 02/27/17 12:15; Start 02/27/17 at 12:15 Oxycodone/ Acetaminophen (Percocet 7.5/ 325) 1 tab PRN Q4HRS PRN PO PAIN Last administered on 02/27/17 21:05; Start 02/27/17 at 15:45 Active Scripts Active No Active Prescriptions or Reported Medications Vitals/I & O Vital Sign - Last 24 Hours 02/27/17 02/27/17 02/27/17 02/27/17 14:20 16:52 16:54 18:05 Temp 98.3 98.3 Pulse 69 Resp 16 16 16 18 B/P (MAP) 122/72 (89) Pulse Ox 98 O2 Delivery Room Air Room Air Room Air Room Air 02/27/17 02/27/17 02/27/17 02/27/17 18:40 19:00 20:00 21:05 Temp 98.2 98.2 Pulse 79 Resp 16 18 18 B/P (MAP) 128/71 (90) Pulse Ox 98 O2 Delivery Room Air Room Air Room Air Room Air 02/27/17 02/27/17 02/27/17 02/28/17 22:05 23:00 23:36 00:36 Temp 98.2 98.2 Pulse 78 Resp 18 19 18 18 B/P (MAP) 131/85 (100) Pulse Ox 99 O2 Delivery Room Air Room Air Room Air Room Air 02/28/17 02/28/17 02/28/17 02/28/17 03:00 07:00 08:14 11:48 Temp 98.8 97.5 98.8 97.5 Pulse 70 65 Resp 19 18 16 B/P (MAP) 133/87 (102) 129/75 (93) Pulse Ox 96 98 O2 Delivery Room Air Room Air Room Air Room Air JOE PETERS III DO Feb 28, 2017 14:06
--- NOTE | 2017-03-02 15:24 | PATHOLOGY ---
PATHOLOGY REPORT * * * * * * * * FINAL DIAGNOSIS: A. Segment of small bowel, laparoscopic diverticulectomy: - Meckel's diverticulum. B. Appendix, laparoscopic appendectomy: - No significant pathologic abnormalities. COMMENT: Sections of the laparoscopic diverticulectomy reveal a small intestine diverticulum consistent with Meckel's diverticulum. The mucosal lining of the diverticulum is intact and shows no evidence of ulceration. There is no heterotopic gastric or pancreatic tissue. There is no significant inflammation. Sections of the laparoscopic appendectomy show no evidence of an acute appendicitis. (JPM:mgr; 03/02/2017) REPORT ELECTRONICALLY SIGNED BY: Dao Mike M.D. DATE/TIME: 03/02/2017 15:23 * * * * * * * * GROSS PATHOLOGY: A. Received in formalin labeled "Danie Enamorado, Meckel's diverticulum" and consists of a portion of small intestine that measures 2.4 cm in diameter by 2.1 cm in length. One end of the specimen is closed with alondra. The remaining surfaces are smooth, glistening, and pink. The alondra are removed and the margin is inked. Sectioning reveals glistening souza mucosa. The specimen is totally submitted A1-A5. B. Received in formalin labeled Danie Enamorado, appendix" and consists of a glistening and baker brown appendix measuring 8.0 cm in length by 0.6 cm in diameter. The margin is inked. The lumen is packed with pasty brown fecal material. The mucosa is hemorrhagic. No masses are identified. [place] sections are submitted as B1. (SONAM; 03/01/2017) INITIAL CPT CODE(S): A; 02491 B; 54467 Professional services performed by [facility] at [facility] [address] [place] [address] Technical services performed by [facility] at [address] [place] [address], [address], [place] [address]. SPECIMEN(S) RECEIVED: A.Meckel's diverticulum B.Appendix CLINICAL HISTORY: Meckel's diverticulum PATIENT: DANIE ENAMORADO /AGE: 3 1995 (Age: 21) PATIENT #: [id number] ALT CASE #: SPECIMEN COLLECTION DATE: 02/26/2017 SPECIMEN RECEIVED DATE: 03/01/2017 [facility] - [id number] [address] - PHONE: [phone] * * * END OF REPORT * * *
== END 2017-02-28 14:00 | disposition home or self-care (01) | DRG 331 ==
LOC: ER 11:52 → 4 NORTH 14:45
PROVIDERS: ADMIT Internal Medicine; ATTEND Internal Medicine
PROC: 0DB84ZZ Excision of Small Intestine, Percutaneous Endoscopic Approach (ICD-10-PCS; 2017-02-26)
PROC: 0DTJ4ZZ Resection of Appendix, Percutaneous Endoscopic Approach (ICD-10-PCS; principal; 2017-02-26 14:00)
DX: Q43.0 Meckel's diverticulum (displaced) (hypertrophic) (principal); F12.10 Cannabis abuse, uncomplicated; F17.210 Nicotine dependence, cigarettes, uncomplicated; F31.9 Bipolar disorder, unspecified; G89.29 Other chronic pain; K21.9 Gastro-esophageal reflux disease without esophagitis; Z82.49 Family history of ischemic heart disease and other diseases of the circulatory system
CPT/HCPCS: 36415; 71010; 74022; 74177; 74250; 80048; 80076; 80307; 81001; 82553; 83690; 85007; 85014; 85018; 85025; 85610; 85651; 85730; 94250; 94760; 96361; 96374; 96375; 96376; J0330; J0690; J0744; J0780; J1100; J1170; J1885; J2060; J2250; J2270; J2405; J2550; J2704; J2710; J3010; J3490; J7030; J7120; Q9966; Q9967; S0028; 99285-25; G0479; J2001

== ENCOUNTER 2017-02-28 18:31 | Emergency (ER) | payer SELFPAY ==
[~2017-02-28] VITALS: Ht 177.8 cm; Wt 77.1 kg
[2017-02-28] MEDS ORDERED: IV NORMAL SALINE 1000ML BAG 1,000 ML IV SCH (20:04)
[2017-02-28 20:12] LABS: BASO % 0 % (0-3); EOS % 0 % (0-3); HEMATOCRIT 45.7 % (39.0-53.0); HEMOGLOBIN 15.6 g/dL (13.0-17.5); LYMPH # 1.4 x10^3/uL (1.0-4.8); LYMPH % 16 % (24-48); MEAN CORPUSCULAR HEMOGLOBIN 31 pg (25-35); MEAN CORPUSCULAR HGB CONC 34 g/dL (31-37); MEAN CORPUSCULAR VOLUME 90 fL (79-100); MONO % 9 % (0-9); NEUT % 74 % (31-73); PLATELET COUNT 213 x10^3/uL (140-400); RED CELL DISTRIBUTION WIDTH 12.9 % (11.5-14.5); WHITE BLOOD COUNT 9.1 x10^3/uL (4.0-11.0)
[2017-02-28] MEDS ORDERED: IOHEXOL 300 MG/ML 100ML VIAL. IV ONE (20:15)
[2017-02-28] MEDS ORDERED: CONTRAST GIVEN MC PRN (20:15)
[2017-02-28] MEDS ORDERED: ONDANSETRON PF 4 MG/2 ML VIAL. IV ONE (20:15)
[2017-02-28] MEDS: fentaNYL PF VIAL 100 MCG/2 ML VIAL IV PRN ×2 (20:18→21:45)
[2017-02-28 20:24] LABS: CALCIUM 9.4 mg/dL (8.5-10.1); CREATININE 0.8 mg/dL (0.7-1.3); GFR 119.8; POTASSIUM 3.6 mmol/L (3.5-5.1)
[2017-02-28 20:30] LABS: ALBUMIN/GLOBULIN RATIO 1.2 (1.0-1.7); TOTAL PROTEIN 7.4 g/dL (6.4-8.2)
[2017-02-28 20:33] LABS: BILIRUBIN,URINE NEGATIVE (NEG); GLUCOSE,URINE NEGATIVE (NEG); NITRITE,URINE NEGATIVE (NEG); PH,URINE 7.5; PROTEIN,URINE NEGATIVE (NEG-TRACE)
[2017-02-28 20:40] LABS: BACTERIA,URINE 0 /HPF (0-FEW); WBC,URINE 0 /HPF (0-4)
--- NOTE | 2017-02-28 21:24 | RAD ---
CT abdomen and pelvis with contrast Indication: recent appendectomy and bowel surgery for diverticulitis, surgery 2 days ago, fall onto rt side of abd today, severe pain, vomiting blood x 1, [id number] 75ml . ER doc aware that artifact from barium was probable. . Technique: Intravenous contrast is given. No oral contrast as per request. Emergency interpretation was requested. Exposure: One or more of the following individualized dose reduction techniques were utilized for this examination: 1. Automated exposure control 2. Adjustment of the mA and/or kV according to patient size 3. Use of iterative reconstruction technique. FINDINGS: Lower thorax: Tiny pleural effusions bilaterally. Pneumoperitoneum: Minimal free air is seen anterior to the liver. Patient had a recent barium exam. Residual barium in the colon results in artifact degrading evaluation of abdominal structures Liver: Grossly unremarkable. The inferior aspect of the right lobe is obscured by artifact. Spleen: Partially obscured but no obvious abnormality. Pancreas: The pancreatic head is mostly obscured by the artifact. The body and tail are unremarkable. Adrenals:No evidence of mass. Kidneys: Partially obscured, no obvious abnormality. Gallbladder: No calcified stone Aorta: Abdominal aorta is nonaneurysmal Lymph nodes: No significant enlargement GI tract: No evidence of bowel obstruction. Cannot evaluate for colonic wall thickening or pericolonic inflammation due to the dense barium. Appendix: Surgically removed. Ascites: No gross ascites. Urinary bladder: Not opacified, but no apparent abnormality. Bones: No destructive process. IMPRESSION: 1. Minimal pneumoperitoneum, likely compatible with a history of recent surgery 2 days ago. This was discussed with Dr. Boykin in the emergency room. 2. Tiny pleural effusions. Electronically signed by: Rigo Alba MD (02/28/2017 9:21 PM) [email or web address]
--- NOTE | 2017-02-28 21:38 | PHYS DOC ---
Past Medical History Past Medical History: Diverticulosis Past Surgical History: Appendectomy, Tonsillectomy, Other Additional Past Surgical Histo: "MECKLES REMOVED FROM INTESTINE" Alcohol Use: Heavy Drug Use: Marijuana Adult General Chief Complaint Chief Complaint: POST-OP PROBLEM HPI HPI Patient is a 21 year old male who presents ambulatory to the ED. Patient was just released from the hospital this evening after he had a hospitalization for abdominal pain and ended up having laparoscopic removal of Meckel diverticulum. Patient states that he was feeling well upon discharge from the hospital. He was walking across a parking lot while talking on the phone, and he tripped over a curb. He landed face first, landed more or less on his stomach, and states that he is now having severe pain. After this happened, he vomited and it looks like "tomato sauce", he thinks he vomited blood. He denies specific injury during the fall. At this time the patient is complaining of nausea and abdominal pain. Review of Systems Review of Systems Constitutional: Denies fever or chills [] GI: As in history of present illness Musculoskeletal: Denies back pain or joint pain [] Neurologic: Denies headache, focal weakness or sensory changes [] All other systems were reviewed and found to be within normal limits, except as documented in this note. Current Medications Current Medications Current Medications Medications (Trade) Dose Ordered Sig/Mahesh Start Time Stop Time Status Last Admin Dose Admin Fentanyl Citrate (Fentanyl 2ml Vial) 50 mcg PRN Q15MIN PRN 02/28/17 20:15 03/01/17 20:14 02/28/17 21:45 50 MCG Info (Do NOT chart on this entry -- for MONITORING) 1 each PRN DAILY PRN 02/28/17 20:15 03/02/17 20:14 Iohexol (Omnipaque 300 Mg/ml) 75 ml 1X ONCE 02/28/17 20:15 02/28/17 20:16 DC 02/28/17 20:15 75 ML Ondansetron HCl (Zofran) 4 mg 1X ONCE 02/28/17 20:15 02/28/17 20:16 DC 02/28/17 20:15 4 MG Sodium Chloride 1,000 ml @ 1,000 mls/hr Q1H 02/28/17 20:04 02/28/17 21:03 DC 02/28/17 20:15 1,000 MLS/HR Allergies Allergies Allergies Coded Allergies Type Severity Reaction Last Updated Verified prochlorperazine Adverse Reaction Intermediate anxious, agitated, combative 02/26/17 Yes tramadol Adverse Reaction Intermediate 02/26/17 Yes Physical Exam Physical Exam Constitutional: Well developed, well nourished, no acute distress, non-toxic appearance. Alert, warm and dry, vital signs stable. HENT: Normocephalic, atraumatic, bilateral external ears normal, oropharynx moist, nose normal. [] Eyes: conjunctiva normal, no discharge. [] Neck: Normal range of motion, no stridor. [] Cardiovascular:Heart rate regular rhythm, no murmur [] Lungs & Thorax: Bilateral breath sounds clear to auscultation [] Abdomen: No injury noted. Small bandages in place over her laparoscopic incisions, were not removed. Nondistended. Abdomen is diffusely tender to light palpation but without rebound or guarding. Skin: Warm, dry, no erythema, no rash. [] Extremities: No tenderness, no cyanosis, no clubbing, ROM intact, no edema. [] Neurologic: Alert and oriented X 3, normal motor function, no focal deficits noted. [] Current Patient Data Vital Signs Vital Signs Date Time Temp Pulse Resp B/P (MAP) Pulse Ox O2 Delivery O2 Flow Rate FiO2 02/28/17 21:51 66 14 128/66 (86) 96 Room Air 02/28/17 18:55 98.7 98.7 Lab Values Laboratory Tests Test 02/28/17 19:20 02/28/17 20:15 White Blood Count 9.1 x10^3/uL (4.0-11.0) Red Blood Count 5.10 x10^6/uL (4.30-5.70) Hemoglobin 15.6 g/dL (13.0-17.5) Hematocrit 45.7 % (39.0-53.0) Mean Corpuscular Volume 90 fL (79-100) Mean Corpuscular Hemoglobin 31 pg (25-35) Mean Corpuscular Hemoglobin Concent 34 g/dL (31-37) Red Cell Distribution Width 12.9 % (11.5-14.5) Platelet Count 213 x10^3/uL (140-400) Neutrophils (%) (Auto) 74 % (31-73) H Lymphocytes (%) (Auto) 16 % (24-48) L Monocytes (%) (Auto) 9 % (0-9) Eosinophils (%) (Auto) 0 % (0-3) Basophils (%) (Auto) 0 % (0-3) Neutrophils # (Auto) 6.8 x10^3uL (1.8-7.7) Lymphocytes # (Auto) 1.4 x10^3/uL (1.0-4.8) Monocytes # (Auto) 0.8 x10^3/uL (0.0-1.1) Eosinophils # (Auto) 0.0 x10^3/uL (0.0-0.7) Basophils # (Auto) 0.0 x10^3/uL (0.0-0.2) Sodium Level 139 mmol/L (136-145) Potassium Level 3.6 mmol/L (3.5-5.1) Chloride Level 101 mmol/L (98-107) Carbon Dioxide Level 29 mmol/L (21-32) Anion Gap 9 (6-14) Blood Urea Nitrogen 10 mg/dL (8-26) Creatinine 0.8 mg/dL (0.7-1.3) Estimated GFR (Cockcroft-Gault) 119.8 BUN/Creatinine Ratio 13 (6-20) Glucose Level 86 mg/dL (70-99) Calcium Level 9.4 mg/dL (8.5-10.1) Total Bilirubin 1.0 mg/dL (0.2-1.0) Aspartate Amino Transferase (AST) 12 U/L (15-37) L Alanine Aminotransferase (ALT) 17 U/L (16-63) Alkaline Phosphatase 46 U/L (46-116) Total Protein 7.4 g/dL (6.4-8.2) Albumin 4.0 g/dL (3.4-5.0) Albumin/Globulin Ratio 1.2 (1.0-1.7) Lipase 66 U/L (73-393) L Urine Collection Type Unknown Urine Color Yellow Urine Clarity Cloudy Urine pH 7.5 Urine Specific [place] <=1.005 Urine Protein Negative mg/dL (NEG-TRACE) Urine Glucose (UA) Negative mg/dL (NEG) Urine Ketones (Stick) Negative mg/dL (NEG) Urine Blood Trace (NEG) Urine Nitrite Negative (NEG) Urine Bilirubin Negative (NEG) Urine Urobilinogen Dipstick 1.0 mg/dL (0.2 mg/dL) Urine Leukocyte Esterase Negative (NEG) Urine RBC 3-5 /HPF (0-2) Urine WBC 0 /HPF (0-4) Urine Bacteria 0 /HPF (0-FEW) Laboratory Tests 02/28/17 19:20 Laboratory Tests 02/28/17 19:20 EKG EKG [] Radiology/Procedures Radiology/Procedures CT scan of the abdomen and pelvis with IV contrast was read by the radiologist who called me to discuss the case. He did see a small amount of free air, but the patient just had laparoscopic surgery 2 days ago. They radiologist does not see any acute or concerning findings.[] Course & Med Decision Making Course & Med Decision Making Pertinent Labs and Imaging studies reviewed. (See chart for details) 21-year-old male who was just hospitalized for abdominal pain, 2 days ago had laparoscopic surgery for Meckel's diverticulum, was just released from the hospital this afternoon, had a fall and landed on his abdomen, presents with the complaint of abdominal pain and vomiting. He was concerned that he vomited blood. In the ED, there is no evidence of any hematemesis. He did vomit while here and ED nursing staff described to me as clear liquid that appears to be water with no evidence of blood whatsoever. He did not have any further vomiting after he was treated with IV Zofran. Labs, CT scan unremarkable. I believe the patient had a fall with painful injury to his still healing abdomen but there is no evidence of any acute injury on CT scan, he did not have any further vomiting while here. He was given IV fluids, IV pain and nausea medication. I believe he is stable for discharge and can be observed closely at home. The patient is stable and is agreeable to that plan. See instructions for plan. [] Dragon Disclaimer Dragon Disclaimer This electronic medical record was generated, in whole or in part, using a voice recognition dictation system. Departure Departure Impression: Primary Impression: Abdominal pain Additional Impressions: Postoperative abdominal pain Nausea & vomiting Disposition: HOME, SELF-CARE Condition: STABLE Referrals: NO PCP (PCP) Patient Instructions: Nausea and Vomiting, [id number] Additional Instructions: Be sure to make a follow-up appointment with your surgeon. Clear liquids for 24 hours, longer if you are not feeling better. If worse, return. Scripts No Active Prescriptions or Reported Meds Problem Qualifiers CAMILA TEMPLETON MD Feb 28, 2017 21:38
[2017-02-28 21:51] VITALS: BP 128/66
== END 2017-02-28 21:51 | disposition home or self-care (01) ==
LOC: ER 18:31
DX: G89.18 Other acute postprocedural pain (principal); R10.84 Generalized abdominal pain; R11.2 Nausea with vomiting, unspecified; Z88.5 Allergy status to narcotic agent; Z88.8 Allergy status to other drugs, medicaments and biological substances; Z98.890 Other specified postprocedural states
CPT/HCPCS: 36415; 74177; 80053; 81001; 83690; 85025; 96361; 96374; 96375; 96376; 99285; J2405; J3010; J7030; Q9967

== ENCOUNTER 2017-03-01 12:21 | Inpatient (IN) | payer SELFPAY ==
[~2017-03-01] VITALS: Ht 177.8 cm; Wt 76.4 kg
[2017-03-01] MEDS ORDERED: HYDROmorphone 2 MG/ML VIAL IV ONE ×2 (13:00→14:15)
[2017-03-01] MEDS ORDERED: ONDANSETRON PF 4 MG/2 ML VIAL. IV ONE ×2 (13:00→14:15)
[2017-03-01] MEDS ORDERED: IV NORMAL SALINE 1000ML BAG 1,000 ML IV ONE (13:00)
--- NOTE | 2017-03-01 13:06 | PHYS DOC ---
Past Medical History Past Medical History: Diverticulosis Past Surgical History: Appendectomy, Tonsillectomy, Other Additional Past Surgical Histo: "MECKLES REMOVED FROM INTESTINE" Additional Information: 0.5 PPD Alcohol Use: Heavy Additional Information: A COUPLE TIMES A WEEK, A BEER Drug Use: Marijuana Adult General Chief Complaint Chief Complaint: GI PROBLEM HPI HPI Patient is a 21 year old male who presents with one-day history of progressive abdominal pain, nausea, vomiting. Denies fever. Denies hematemesis or melena or rectal bleeding. Patient's postop 3 days out from a appendectomy and Meckel diverticulum removal. Patient had visited the ER last evening had labs and CT scan. Apparently some issues regarding not being able to get his pain pills and nausea meds filled but will need to look further into this. Review of Systems Review of Systems Constitutional: Denies fever or chills [] Eyes: Denies change in visual acuity, redness, or eye pain [] HENT: Denies nasal congestion or sore throat [] Respiratory: Denies cough or shortness of breath [] Cardiovascular: No additional information not addressed in HPI [] GI: Denies abdominal pain, nausea, vomiting, bloody stools or diarrhea [] : Denies dysuria or hematuria [] Musculoskeletal: Denies back pain or joint pain [] Integument: Denies rash or skin lesions [] Neurologic: Denies headache, focal weakness or sensory changes [] Endocrine: Denies polyuria or polydipsia [] All other systems were reviewed and found to be within normal limits, except as documented in this note. Current Medications Current Medications Current Medications Medications (Trade) Dose Ordered Sig/Mahesh Start Time Stop Time Status Last Admin Dose Admin Hydromorphone HCl (Dilaudid) 1 mg 1X ONCE 03/01/17 14:15 03/01/17 14:16 DC 03/01/17 14:14 1 MG Ondansetron HCl (Zofran) 4 mg 1X ONCE 03/01/17 14:15 03/01/17 14:16 DC 03/01/17 14:14 4 MG Sodium Chloride 1,000 ml @ 1,000 mls/hr 1X ONCE 03/01/17 13:00 03/01/17 13:59 DC 03/01/17 13:17 1,000 MLS/HR Allergies Allergies Allergies Coded Allergies Type Severity Reaction Last Updated Verified prochlorperazine Adverse Reaction Intermediate anxious, agitated, combative 02/26/17 Yes tramadol Adverse Reaction Intermediate 02/26/17 Yes Physical Exam Physical Exam Constitutional: Well developed, well nourished, no acute distress, non-toxic appearance. [] HENT: Normocephalic, atraumatic, bilateral external ears normal, oropharynx moist, no oral exudates, nose normal. [] Eyes: PERRLA, EOMI, conjunctiva normal, no discharge. [] Neck: Normal range of motion, no tenderness, supple, no stridor. [] Cardiovascular:Heart rate regular rhythm, no murmur [] Lungs & Thorax: Bilateral breath sounds clear to auscultation [] Abdomen: Bowel sounds normal, soft, mild to moderate poorly localized tenderness , no masses, no pulsatile masses. [] Skin: Warm, dry, no erythema, no rash. [] Back: No tenderness, no CVA tenderness. [] Extremities: No tenderness, no cyanosis, no clubbing, ROM intact, no edema. [] Neurologic: Alert and oriented X 3, normal motor function, normal sensory function, no focal deficits noted. [] Psychologic: Affect normal, judgement normal, mood normal. [] Current Patient Data Vital Signs Vital Signs Date Time Temp Pulse Resp B/P (MAP) Pulse Ox O2 Delivery O2 Flow Rate FiO2 03/01/17 14:14 20 99 Room Air 03/01/17 14:12 70 137/63 (87) 03/01/17 12:37 98.6 98.6 Lab Values Laboratory Tests Test 03/01/17 13:08 03/01/17 14:35 White Blood Count 9.5 x10^3/uL (4.0-11.0) Red Blood Count 5.48 x10^6/uL (4.30-5.70) Hemoglobin 16.7 g/dL (13.0-17.5) Hematocrit 49.0 % (39.0-53.0) Mean Corpuscular Volume 90 fL (79-100) Mean Corpuscular Hemoglobin 30 pg (25-35) Mean Corpuscular Hemoglobin Concent 34 g/dL (31-37) Red Cell Distribution Width 12.7 % (11.5-14.5) Platelet Count 228 x10^3/uL (140-400) Neutrophils (%) (Auto) 77 % (31-73) H Lymphocytes (%) (Auto) 9 % (24-48) L Monocytes (%) (Auto) 13 % (0-9) H Eosinophils (%) (Auto) 1 % (0-3) Basophils (%) (Auto) 0 % (0-3) Neutrophils # (Auto) 7.4 x10^3uL (1.8-7.7) Lymphocytes # (Auto) 0.9 x10^3/uL (1.0-4.8) L Monocytes # (Auto) 1.2 x10^3/uL (0.0-1.1) H Eosinophils # (Auto) 0.1 x10^3/uL (0.0-0.7) Basophils # (Auto) 0.0 x10^3/uL (0.0-0.2) Sodium Level 138 mmol/L (136-145) Potassium Level 4.1 mmol/L (3.5-5.1) Chloride Level 101 mmol/L (98-107) Carbon Dioxide Level 28 mmol/L (21-32) Anion Gap 9 (6-14) Blood Urea Nitrogen 13 mg/dL (8-26) Creatinine 0.9 mg/dL (0.7-1.3) Estimated GFR (Cockcroft-Gault) 104.6 BUN/Creatinine Ratio 14 (6-20) Glucose Level 83 mg/dL (70-99) Calcium Level 9.5 mg/dL (8.5-10.1) Total Bilirubin 1.3 mg/dL (0.2-1.0) H Aspartate Amino Transferase (AST) 15 U/L (15-37) Alanine Aminotransferase (ALT) 22 U/L (16-63) Alkaline Phosphatase 50 U/L (46-116) Total Protein 8.5 g/dL (6.4-8.2) H Albumin 4.1 g/dL (3.4-5.0) Albumin/Globulin Ratio 0.9 (1.0-1.7) L Lipase 64 U/L (73-393) L Urine Collection Type Unknown Urine Color Yellow Urine Clarity Clear Urine pH 7.5 Urine Specific [place] 1.020 Urine Protein Negative mg/dL (NEG-TRACE) Urine Glucose (UA) Negative mg/dL (NEG) Urine Ketones (Stick) 40 mg/dL (NEG) Urine Blood Trace (NEG) Urine Nitrite Negative (NEG) Urine Bilirubin Negative (NEG) Urine Urobilinogen Dipstick 1.0 mg/dL (0.2 mg/dL) Urine Leukocyte Esterase Negative (NEG) Urine RBC 3-5 /HPF (0-2) Urine WBC Occ /HPF (0-4) Urine Squamous Epithelial Cells None /LPF Urine Bacteria Few /HPF (0-FEW) Urine Mucus Marked /LPF Laboratory Tests 03/01/17 13:08 Laboratory Tests 03/01/17 13:08 EKG EKG [] Radiology/Procedures Radiology/Procedures [] Course & Med Decision Making Course & Med Decision Making Pertinent Labs and Imaging studies reviewed. (See chart for details) Patient continues to have intractable abdominal pain and is not comfortable going home. Discussed case with Dr. killian who agrees to admit the patient. I did talk to Dr. Munoz regarding the readmission. Patient will be admitted due to intractable abdominal pain and intractable vomiting and inability to take by mouth. No indication for CT scan as he just had one done little over 12 hours ago. Labs were unremarkable. Dragon Disclaimer Dragon Disclaimer This electronic medical record was generated, in whole or in part, using a voice recognition dictation system. Departure Departure Impression: Primary Impression: Intractable generalized abdominal pain Additional Impression: Vomiting Disposition: ADMITTED INPATIENT Admitting Physician: Janeth Killian Condition: STABLE Referrals: NO PCP (PCP) Scripts No Active Prescriptions or Reported Meds Problem Qualifiers JOSEPH GALLAGHER MD Mar 01, 2017 13:06
[2017-03-01 13:18] LABS: BASO % 0 % (0-3); EOS % 1 % (0-3); HEMOGLOBIN 16.7 g/dL (13.0-17.5); LYMPH # 0.9 x10^3/uL (1.0-4.8); LYMPH % 9 % (24-48); MEAN CORPUSCULAR HEMOGLOBIN 30 pg (25-35); MEAN CORPUSCULAR HGB CONC 34 g/dL (31-37); MEAN CORPUSCULAR VOLUME 90 fL (79-100); MONO % 13 % (0-9); NEUT % 77 % (31-73); PLATELET COUNT 228 x10^3/uL (140-400); RED BLOOD COUNT 5.48 x10^6/uL (4.30-5.70); RED CELL DISTRIBUTION WIDTH 12.7 % (11.5-14.5); WHITE BLOOD COUNT 9.5 x10^3/uL (4.0-11.0)
[2017-03-01 13:24] LABS: CALCIUM 9.5 mg/dL (8.5-10.1); CREATININE 0.9 mg/dL (0.7-1.3); GFR 104.6; POTASSIUM 4.1 mmol/L (3.5-5.1)
[2017-03-01 13:29] LABS: ALBUMIN 4.1 g/dL (3.4-5.0); ALBUMIN/GLOBULIN RATIO 0.9 (1.0-1.7); TOTAL BILIRUBIN 1.3 mg/dL (0.2-1.0); TOTAL PROTEIN 8.5 g/dL (6.4-8.2)
[2017-03-01 14:48] LABS: BILIRUBIN,URINE NEGATIVE (NEG); GLUCOSE,URINE NEGATIVE (NEG); NITRITE,URINE NEGATIVE (NEG); PH,URINE 7.5; PROTEIN,URINE NEGATIVE (NEG-TRACE)
[2017-03-01 15:08] LABS: BACTERIA,URINE FEW /HPF (0-FEW); WBC,URINE OCC /HPF (0-4)
[2017-03-01] MEDS: ONDANSETRON PF 4 MG/2 ML VIAL. IV PRN ×2 (16:26→17:51)
[2017-03-01] MEDS: fentaNYL PF VIAL 100 MCG/2 ML VIAL IV PRN (16:28)
[2017-03-01] MEDS: IV NORMAL SALINE 1000ML BAG 1,000 ML IV SCH (16:35)
[2017-03-01 17:35] VITALS: BP 109/65
--- NOTE | 2017-03-01 17:39 | PDOC1 ---
History and Physical Date of Admission Date of Admission DATE: 03/01/17 TIME: 17:30 Identification/Chief Complaint Chief Complaint abd pain Problems: Source Source: Chart review, Patient History of Present Illness History of Present Illness Mr. Jiang is a 21 year old male admit from [facility], with Return of severe pain and nausea. DC 3 days ago, abd surg done. Dr. Munoz, appendectomy and Meckel diverticulum removal. Now complains of seveere one-day history of progressive abdominal pain, nausea , vomiting. No fever. pain 02/26, then 11/26 after IV dilaudid, he is standing as he cannot sit or lie supine as it causes more pain Past Medical History Cardiovascular: No pertinent hx Pulmonary: No pertinent hx CENTRAL NERVOUS SYSTEM: Carpal Tunnel Syndrome GI: Other Heme/Onc: No pertinent hx Hepatobiliary: No pertinent hx Psych: Bipolar Rheumatologic: No pertinent hx Infectious disease: No pertinent hx Renal/: No pertinent hx Endocrine: No pertinent hx Past Surgical History Past Surgical History: Tonsillectomy Family History Family History: Hypertension Social History Smoke: No ALCOHOL: rare Drugs: Marijuana, Other (rare) Current Problem List Problem List Problems Medical Problems: (1) Intractable generalized abdominal pain Status: Acute (2) Vomiting Status: Acute Problems: Current Medications Current Medications Current Medications Sodium Chloride 1,000 ml @ 1,000 mls/hr 1X ONCE IV Last administered on 03/01 13:17; Start 03/01/17 at 13:00; Stop 03/01/17 at 13:59; Status DC Ondansetron HCl (Zofran) 4 mg 1X ONCE IV Last administered on 03/01/17 13:17 ; Start 03/01/17 at 13:00; Stop 03/01/17 at 13:02; Status DC Hydromorphone HCl (Dilaudid) 1 mg 1X ONCE IV Last administered on 03/01/17 13:19; Start 03/01/17 at 13:00; Stop 03/01/17 at 13:02; Status DC Hydromorphone HCl (Dilaudid) 1 mg 1X ONCE IV Last administered on 03/01/17 14:14; Start 03/01/17 at 14:15; Stop 03/01/17 at 14:16; Status DC Ondansetron HCl (Zofran) 4 mg 1X ONCE IV Last administered on 03/01/17 14:14 ; Start 03/01/17 at 14:15; Stop 03/01/17 at 14:16; Status DC Ondansetron HCl (Zofran) 4 mg PRN Q8HRS PRN IV NAUSEA/VOMITING Last administered on 03/01/17 16:26; Start 03/01/17 at 16:00; Stop 03/02/17 at 15 :59 Fentanyl Citrate (Fentanyl 2ml Vial) 50 mcg PRN Q2HR PRN IV PAIN Last administered on 03/01/17 16:28; Start 03/01/17 at 16:00; Stop 03/02/17 at 15 :59 Sodium Chloride 1,000 ml @ 150 mls/hr Q6H40M IV Last administered on 16:35; Start 03/01/17 at 16:00; Stop 03/02/17 at 15:59 Active Scripts Active No Active Prescriptions or Reported Medications Allergies Allergies: Coded Allergies: prochlorperazine (Verified Adverse Reaction, Intermediate, anxious, agitated, combative, 02/26/17) Pt states this medication makes him anxious, agitated, combative tramadol (Verified Adverse Reaction, Intermediate, 02/26/17) patient states tramadol makes him angry and combative. ROS General: YES: Appetite, No: Chills, Night Sweats, Fatigue, Malaise PSYCHOLOGICAL ROS: YES: Sleep disturbances, No: Anxiety, Behavioral Disorder, Concentration difficultie, Decreased libido , Depression, Disorientation, Hallucinations, Hostility, Irritablity, Memory difficulties, Mood Swings, Obsessive thoughts, Other Eyes: No Blurry vision, No Decreased vision, No Double vision, No Dry eyes, No Excessive tearing, No Eye Pain, No Itchy Eyes, No Loss of vision, No Photophobia , No Scotomata, No Uses contacts, No Uses glasses, No Other HEENT: YES: Heacaches, No: Visual Changes, Hearing change, Nasal congestion, Nasal discharge, Oral lesions, Sinus pain, Sore Throat, Epistaxis, Sneezing, Snoring, Tinnitus, Vertigo, Vocal changes, Other ALLERGY AND IMMUNOLOGY: No: Hives, Insect Bite Sensitivity, Itchy/Watery Eyes, Nasal Congestion, Post Nasal Drip, Seasonal Allergies, Other Hematological and Lymphatic: No: Bleeding Problems, Blood Clots, Blood Transfusions, Brusing, Night Sweats, Pallor, Swollen Lymph Nodes, Other Respiratory: No: Cough, Hemoptysis, Orthopnea, Pleuritic Pain, Shortness of breath, SOB with excertion, Sputum Changes, Stridor, Tachypnea, Wheezing, Other Cardiovascular: No Chest Pain, No Palpitations, No Orthopnea, No Paroxysmal Noc. Dyspnea, No Edema, No Lt Headedness, No Other Gastrointestinal: Yes Nausea, Yes Vomiting, Yes Abdominal Pain, No Diarrhea, No Constipation, No Melena, No Hematochezia, No Other Genitourinary: No Dysuria, No Frequency, No Incontinence, No Hematuria, No Retention, No Discharge, No Urgency, No Pain, No Flank Pain, No Other, No , No , No , No , No , No , No Musculoskeletal: No Gait Disturbance, No Joint Pain, No Joint Stiffness, No Joint Swelling, No Muscle Pain, No Muscular Weakness, No Pain In:, No Swelling In:, No Other Neurological: No Behavorial Changes, No Bowel/Bladder ControlChng, No Confusion , No Dizziness, No Gait Disturbance, No Headaches, No Impaired Coord/balance, No Memory Loss, No Numbness/Tingling, No Seizures, No Speech Problems, No Tremors, No Visual Changes, No Weakness, No Other Skin: No Dry Skin, No Eczema, No Hair Changes, No Lumps, No Mole Changes, No Mottling, No Nail Changes, No Pruritus, No Rash, No Skin Lesion Changes, No Other, No Acne Physical Exam General: Alert, Oriented X3, Cooperative, moderate distress, severe distress HEENT: Atraumatic, PERRLA Lungs: Clear to auscultation, Normal air movement Heart: S1S2, no gallops Abdomen: Normal bowel sounds, Other (tender, appears clear, 3 small areas with guaze covering, no redness, no bruising) Rectal Exam: not examined Extremities: No cyanosis, No edema Skin: No rashes Psych/Mental Status: Mental status NL, Mood NL Vitals Vitals Vital Signs Date Time Temp Pulse Resp B/P (MAP) Pulse Ox O2 Delivery O2 Flow Rate FiO2 03/01/17 17:01 68 20 131/69 (89) 96 Room Air 03/01/17 12:37 98.6 98.6 Labs Labs Laboratory Tests Test 03/01/17 13:08 03/01/17 14:35 White Blood Count 9.5 x10^3/uL (4.0-11.0) Red Blood Count 5.48 x10^6/uL (4.30-5.70) Hemoglobin 16.7 g/dL (13.0-17.5) Hematocrit 49.0 % (39.0-53.0) Mean Corpuscular Volume 90 fL (79-100) Mean Corpuscular Hemoglobin 30 pg (25-35) Mean Corpuscular Hemoglobin Concent 34 g/dL (31-37) Red Cell Distribution Width 12.7 % (11.5-14.5) Platelet Count 228 x10^3/uL (140-400) Neutrophils (%) (Auto) 77 % (31-73) Lymphocytes (%) (Auto) 9 % (24-48) Monocytes (%) (Auto) 13 % (0-9) Eosinophils (%) (Auto) 1 % (0-3) Basophils (%) (Auto) 0 % (0-3) Neutrophils # (Auto) 7.4 x10^3uL (1.8-7.7) Lymphocytes # (Auto) 0.9 x10^3/uL (1.0-4.8) Monocytes # (Auto) 1.2 x10^3/uL (0.0-1.1) Eosinophils # (Auto) 0.1 x10^3/uL (0.0-0.7) Basophils # (Auto) 0.0 x10^3/uL (0.0-0.2) Sodium Level 138 mmol/L (136-145) Potassium Level 4.1 mmol/L (3.5-5.1) Chloride Level 101 mmol/L (98-107) Carbon Dioxide Level 28 mmol/L (21-32) Anion Gap 9 (6-14) Blood Urea Nitrogen 13 mg/dL (8-26) Creatinine 0.9 mg/dL (0.7-1.3) Estimated GFR (Cockcroft-Gault) 104.6 BUN/Creatinine Ratio 14 (6-20) Glucose Level 83 mg/dL (70-99) Calcium Level 9.5 mg/dL (8.5-10.1) Total Bilirubin 1.3 mg/dL (0.2-1.0) Aspartate Amino Transf (AST/SGOT) 15 U/L (15-37) Alanine Aminotransferase (ALT/SGPT) 22 U/L (16-63) Alkaline Phosphatase 50 U/L (46-116) Total Protein 8.5 g/dL (6.4-8.2) Albumin 4.1 g/dL (3.4-5.0) Albumin/Globulin Ratio 0.9 (1.0-1.7) Lipase 64 U/L (73-393) Urine Collection Type Unknown Urine Color Yellow Urine Clarity Clear Urine pH 7.5 Urine Specific [place] 1.020 Urine Protein Negative mg/dL (NEG-TRACE) Urine Glucose (UA) Negative mg/dL (NEG) Urine Ketones (Stick) 40 mg/dL (NEG) Urine Blood Trace (NEG) Urine Nitrite Negative (NEG) Urine Bilirubin Negative (NEG) Urine Urobilinogen Dipstick 1.0 mg/dL (0.2 mg/dL) Urine Leukocyte Esterase Negative (NEG) Urine RBC 3-5 /HPF (0-2) Urine WBC Occ /HPF (0-4) Urine Squamous Epithelial Cells None /LPF Urine Bacteria Few /HPF (0-FEW) Urine Mucus Marked /LPF Laboratory Tests Test 03/01/17 13:08 03/01/17 14:35 White Blood Count 9.5 x10^3/uL (4.0-11.0) Red Blood Count 5.48 x10^6/uL (4.30-5.70) Hemoglobin 16.7 g/dL (13.0-17.5) Hematocrit 49.0 % (39.0-53.0) Mean Corpuscular Volume 90 fL (79-100) Mean Corpuscular Hemoglobin 30 pg (25-35) Mean Corpuscular Hemoglobin Concent 34 g/dL (31-37) Red Cell Distribution Width 12.7 % (11.5-14.5) Platelet Count 228 x10^3/uL (140-400) Neutrophils (%) (Auto) 77 % (31-73) Lymphocytes (%) (Auto) 9 % (24-48) Monocytes (%) (Auto) 13 % (0-9) Eosinophils (%) (Auto) 1 % (0-3) Basophils (%) (Auto) 0 % (0-3) Neutrophils # (Auto) 7.4 x10^3uL (1.8-7.7) Lymphocytes # (Auto) 0.9 x10^3/uL (1.0-4.8) Monocytes # (Auto) 1.2 x10^3/uL (0.0-1.1) Eosinophils # (Auto) 0.1 x10^3/uL (0.0-0.7) Basophils # (Auto) 0.0 x10^3/uL (0.0-0.2) Sodium Level 138 mmol/L (136-145) Potassium Level 4.1 mmol/L (3.5-5.1) Chloride Level 101 mmol/L (98-107) Carbon Dioxide Level 28 mmol/L (21-32) Anion Gap 9 (6-14) Blood Urea Nitrogen 13 mg/dL (8-26) Creatinine 0.9 mg/dL (0.7-1.3) Estimated GFR (Cockcroft-Gault) 104.6 BUN/Creatinine Ratio 14 (6-20) Glucose Level 83 mg/dL (70-99) Calcium Level 9.5 mg/dL (8.5-10.1) Total Bilirubin 1.3 mg/dL (0.2-1.0) Aspartate Amino Transf (AST/SGOT) 15 U/L (15-37) Alanine Aminotransferase (ALT/SGPT) 22 U/L (16-63) Alkaline Phosphatase 50 U/L (46-116) Total Protein 8.5 g/dL (6.4-8.2) Albumin 4.1 g/dL (3.4-5.0) Albumin/Globulin Ratio 0.9 (1.0-1.7) Lipase 64 U/L (73-393) Urine Collection Type Unknown Urine Color Yellow Urine Clarity Clear Urine pH 7.5 Urine Specific [place] 1.020 Urine Protein Negative mg/dL (NEG-TRACE) Urine Glucose (UA) Negative mg/dL (NEG) Urine Ketones (Stick) 40 mg/dL (NEG) Urine Blood Trace (NEG) Urine Nitrite Negative (NEG) Urine Bilirubin Negative (NEG) Urine Urobilinogen Dipstick 1.0 mg/dL (0.2 mg/dL) Urine Leukocyte Esterase Negative (NEG) Urine RBC 3-5 /HPF (0-2) Urine WBC Occ /HPF (0-4) Urine Squamous Epithelial Cells None /LPF Urine Bacteria Few /HPF (0-FEW) Urine Mucus Marked /LPF VTE Prophylaxis Ordered VTE Prophylaxis Devices: No VTE Pharmacological Prophylaxi: Yes Assessment/Plan Assessment/Plan acute abominal pain , nausea and vomiting recent abdominal surgery may exacerbate pain anxiety, nausea and pain admit, symptom management Dr. Munoz consult, recent abd surg, abd very tender, but possibly some expected EDILBERTO SCRUGGS MD Mar 01, 2017 17:39
[2017-03-01] MEDS: HYDROmorphone 2 MG/ML VIAL IVP PRN ×3 (17:52→23:10)
[2017-03-01 19:00] VITALS: BP 122/66
[2017-03-01 23:18] VITALS: BP 118/69
[2017-03-02] MEDS: IV NORMAL SALINE 1000ML BAG 1,000 ML IV SCH ×3 (00:30→14:27)
[2017-03-02] MEDS: fentaNYL PF VIAL 100 MCG/2 ML VIAL IV PRN (00:31)
[2017-03-02 03:00] VITALS: BP 118/66
[2017-03-02 05:19] LABS: BASO % 1 % (0-3); EOS % 4 % (0-3); HEMOGLOBIN 14.5 g/dL (13.0-17.5); LYMPH # 1.9 x10^3/uL (1.0-4.8); LYMPH % 38 % (24-48); MEAN CORPUSCULAR HEMOGLOBIN 31 pg (25-35); MEAN CORPUSCULAR HGB CONC 34 g/dL (31-37); MEAN CORPUSCULAR VOLUME 90 fL (79-100); MONO % 19 % (0-9); NEUT % 38 % (31-73); PLATELET COUNT 198 x10^3/uL (140-400); RED BLOOD COUNT 4.76 x10^6/uL (4.30-5.70); RED CELL DISTRIBUTION WIDTH 12.8 % (11.5-14.5); WHITE BLOOD COUNT 5.1 x10^3/uL (4.0-11.0)
[2017-03-02 05:48] LABS: CALCIUM 8.3 mg/dL (8.5-10.1); CREATININE 0.7 mg/dL (0.7-1.3); GFR 139.8; POTASSIUM 3.6 mmol/L (3.5-5.1)
[2017-03-02] MEDS: HYDROmorphone 2 MG/ML VIAL IVP PRN ×7 (05:49→21:35)
[2017-03-02 07:00] VITALS: BP 132/64
--- NOTE | 2017-03-02 08:31 | PDOC ---
PROGRESS NOTES Chief Complaint Chief Complaint Intractable abd pain ASSESSMENT AND PLAN: 1. Abd pain: no abn on CT or labs. doubt surgery related. await surg service input. 2. Pain control: using significant amounts of IV dilaudid. wean dose as umesh. 3. Constipation: anticipate worsening with narcotics. start miralax History of Present Illness History of Present Illness pain controlled with narcotics, needs pretty frequently. Vitals Vitals Vital Signs Date Time Temp Pulse Resp B/P (MAP) Pulse Ox O2 Delivery O2 Flow Rate FiO2 03/02/17 06:19 18 97 Room Air 03/02/17 03:00 97.9 74 118/66 (83) 97.9 Physical Exam General: Alert, Oriented X3, Cooperative, No acute distress, Other (moves in bed slowly with arm support) Heart: Regular rate Lungs: Clear Abdomen: Normal bowel sounds, Other (tender, lap ports C/D/I) Extremities: No edema Skin: No rashes Labs LABS Laboratory Tests Test 03/01/17 13:08 03/01/17 14:35 03/02/17 04:15 White Blood Count 9.5 x10^3/uL (4.0-11.0) 5.1 x10^3/uL (4.0-11.0) Red Blood Count 5.48 x10^6/uL (4.30-5.70) 4.76 x10^6/uL (4.30-5.70) Hemoglobin 16.7 g/dL (13.0-17.5) 14.5 g/dL (13.0-17.5) Hematocrit 49.0 % (39.0-53.0) 43.0 % (39.0-53.0) Mean Corpuscular Volume 90 fL (79-100) 90 fL (79-100) Mean Corpuscular Hemoglobin 30 pg (25-35) 31 pg (25-35) Mean Corpuscular Hemoglobin Concent 34 g/dL (31-37) 34 g/dL (31-37) Red Cell Distribution Width 12.7 % (11.5-14.5) 12.8 % (11.5-14.5) Platelet Count 228 x10^3/uL (140-400) 198 x10^3/uL (140-400) Neutrophils (%) (Auto) 77 % (31-73) 38 % (31-73) Lymphocytes (%) (Auto) 9 % (24-48) 38 % (24-48) Monocytes (%) (Auto) 13 % (0-9) 19 % (0-9) Eosinophils (%) (Auto) 1 % (0-3) 4 % (0-3) Basophils (%) (Auto) 0 % (0-3) 1 % (0-3) Neutrophils # (Auto) 7.4 x10^3uL (1.8-7.7) 1.9 x10^3uL (1.8-7.7) Lymphocytes # (Auto) 0.9 x10^3/uL (1.0-4.8) 1.9 x10^3/uL (1.0-4.8) Monocytes # (Auto) 1.2 x10^3/uL (0.0-1.1) 1.0 x10^3/uL (0.0-1.1) Eosinophils # (Auto) 0.1 x10^3/uL (0.0-0.7) 0.2 x10^3/uL (0.0-0.7) Basophils # (Auto) 0.0 x10^3/uL (0.0-0.2) 0.0 x10^3/uL (0.0-0.2) Sodium Level 138 mmol/L (136-145) 141 mmol/L (136-145) Potassium Level 4.1 mmol/L (3.5-5.1) 3.6 mmol/L (3.5-5.1) Chloride Level 101 mmol/L (98-107) 108 mmol/L (98-107) Carbon Dioxide Level 28 mmol/L (21-32) 28 mmol/L (21-32) Anion Gap 9 (6-14) 5 (6-14) Blood Urea Nitrogen 13 mg/dL (8-26) 12 mg/dL (8-26) Creatinine 0.9 mg/dL (0.7-1.3) 0.7 mg/dL (0.7-1.3) Estimated GFR (Cockcroft-Gault) 104.6 139.8 BUN/Creatinine Ratio 14 (6-20) Glucose Level 83 mg/dL (70-99) 105 mg/dL (70-99) Calcium Level 9.5 mg/dL (8.5-10.1) 8.3 mg/dL (8.5-10.1) Total Bilirubin 1.3 mg/dL (0.2-1.0) Aspartate Amino Transf (AST/SGOT) 15 U/L (15-37) Alanine Aminotransferase (ALT/SGPT) 22 U/L (16-63) Alkaline Phosphatase 50 U/L (46-116) Total Protein 8.5 g/dL (6.4-8.2) Albumin 4.1 g/dL (3.4-5.0) Albumin/Globulin Ratio 0.9 (1.0-1.7) Lipase 64 U/L (73-393) Urine Collection Type Unknown Urine Color Yellow Urine Clarity Clear Urine pH 7.5 Urine Specific [place] 1.020 Urine Protein Negative mg/dL (NEG-TRACE) Urine Glucose (UA) Negative mg/dL (NEG) Urine Ketones (Stick) 40 mg/dL (NEG) Urine Blood Trace (NEG) Urine Nitrite Negative (NEG) Urine Bilirubin Negative (NEG) Urine Urobilinogen Dipstick 1.0 mg/dL (0.2 mg/dL) Urine Leukocyte Esterase Negative (NEG) Urine RBC 3-5 /HPF (0-2) Urine WBC Occ /HPF (0-4) Urine Squamous Epithelial Cells None /LPF Urine Bacteria Few /HPF (0-FEW) Urine Mucus Marked /LPF SOLE AGUAYO MD Mar 02, 2017 08:31
[2017-03-02] MEDS: ONDANSETRON PF 4 MG/2 ML VIAL. IV PRN ×2 (09:10→17:11)
--- NOTE | 2017-03-02 09:32 | PDOC2 ---
DILLON DUGAN ASPHALT PAVER 03/02/17 0932: CONSULT Date of Consult Date of Consult DATE: 03/02/17 TIME: 09:25 Reason for Consult Reason for Consult: recent surgery, abdominal pain Referring Physician Referring Physician: ER Identification/Chief Complaint Chief Complaint abdominal pain Problems: Source Source: Chart review, Patient History of Present Illness Reason for Visit: 02/26 Meckels diverticulectomy, appendectomy. Discharged home, was walking in parking lot, tripped and fell. He hit his right side, had severe pain, emesis( blood at that time). He was evaluated in ER--no acute CT changes. Discharged home, reports ongoing lower abdominal pain, emesis(non bloody) and watery stools Past Medical History Cardiovascular: No pertinent hx Pulmonary: No pertinent hx CENTRAL NERVOUS SYSTEM: Carpal Tunnel Syndrome GI: Other Heme/Onc: No pertinent hx Hepatobiliary: No pertinent hx Psych: Bipolar Rheumatologic: No pertinent hx Infectious disease: No pertinent hx Renal/: No pertinent hx Endocrine: No pertinent hx Past Surgical History Past Surgical History: Tonsillectomy, Other (meckels diverticulectomy, appendectomy ) Family History Family History: Hypertension Social History No ALCOHOL: rare Drugs: Marijuana, Other (rare) Lives: Alone Current Problem List Problem List Problems Medical Problems: (1) Intractable generalized abdominal pain Status: Acute (2) Vomiting Status: Acute Current Medications Current Medications Current Medications Sodium Chloride 1,000 ml @ 1,000 mls/hr 1X ONCE IV Last administered on 03/01 13:17; Start 03/01/17 at 13:00; Stop 03/01/17 at 13:59; Status DC Ondansetron HCl (Zofran) 4 mg 1X ONCE IV Last administered on 03/01/17 13:17 ; Start 03/01/17 at 13:00; Stop 03/01/17 at 13:02; Status DC Hydromorphone HCl (Dilaudid) 1 mg 1X ONCE IV Last administered on 03/01/17 13:19; Start 03/01/17 at 13:00; Stop 03/01/17 at 13:02; Status DC Hydromorphone HCl (Dilaudid) 1 mg 1X ONCE IV Last administered on 03/01/17 14:14; Start 03/01/17 at 14:15; Stop 03/01/17 at 14:16; Status DC Ondansetron HCl (Zofran) 4 mg 1X ONCE IV Last administered on 03/01/17 14:14 ; Start 03/01/17 at 14:15; Stop 03/01/17 at 14:16; Status DC Ondansetron HCl (Zofran) 4 mg PRN Q8HRS PRN IV NAUSEA/VOMITING Last administered on 03/01/17 17:51; Start 03/01/17 at 16:00; Stop 03/02/17 at 15 :59 Fentanyl Citrate (Fentanyl 2ml Vial) 50 mcg PRN Q2HR PRN IV PAIN Last administered on 03/02/17 00:31; Start 03/01/17 at 16:00; Stop 03/02/17 at 15 :59 Sodium Chloride 1,000 ml @ 150 mls/hr Q6H40M IV Last administered on 05:47; Start 03/01/17 at 16:00; Stop 03/02/17 at 15:59 Hydromorphone HCl (Dilaudid) 1.2 mg PRN Q2HR PRN IVP PAIN Last administered on 03/02/17 08:42; Start 03/01/17 at 17:30 Ondansetron HCl (Zofran) 8 mg PRN Q8HRS PRN IV NAUSEA/VOMITING Last administered on 03/02/17 09:10; Start 03/01/17 at 17:30 Lorazepam (Ativan) 1 mg PRN Q4HRS PRN IV ANXIETY / AGITATION Last administered on 03/02/17 00:30; Start 03/01/17 at 17:30 Active Scripts Active No Active Prescriptions or Reported Medications Allergies Allergies: Coded Allergies: prochlorperazine (Verified Adverse Reaction, Intermediate, anxious, agitated, combative, 02/26/17) Pt states this medication makes him anxious, agitated, combative tramadol (Verified Adverse Reaction, Intermediate, 02/26/17) patient states tramadol makes him angry and combative. ROS General: YES: Chills, No: Other (no fevers) PSYCHOLOGICAL ROS: No: Anxiety, Depression Eyes: No Blurry vision, No Double vision HEENT: No: Heacaches, Sore Throat Hematological and Lymphatic: No: Bleeding Problems, Blood Clots Respiratory: No: Cough, Shortness of breath Cardiovascular: No Chest Pain, No Palpitations Gastrointestinal: Yes Other (see hpi) Genitourinary: No Dysuria, No Hematuria Musculoskeletal: No Joint Pain, No Muscle Pain Neurological: No Bowel/Bladder ControlChng, No Memory Loss Skin: No Pruritus, No Rash Physical Exam General: Alert, Oriented X3, Cooperative, No acute distress HEENT: PERRLA, Mucous membr. moist/pink Lungs: Clear to auscultation, Normal air movement Heart: Regular rate, Normal S1, Normal S2, No murmurs Abdomen: Soft, Other (lap sites healing, tender across lower abdomen, worse RLQ ) Extremities: No clubbing, No cyanosis Skin: No rashes, No breakdown Neuro: Normal speech, Sensation intact Psych/Mental Status: Mental status NL, Mood NL MUSCULOSKELETAL: No deformity, No swelling Vitals VITALS Vital Signs Date Time Temp Pulse Resp B/P (MAP) Pulse Ox O2 Delivery O2 Flow Rate FiO2 03/02/17 09:15 Room Air 03/02/17 06:19 18 97 03/02/17 03:00 97.9 74 118/66 (83) 97.9 Labs Labs Laboratory Tests Test 03/01/17 13:08 03/01/17 14:35 03/02/17 04:15 White Blood Count 9.5 x10^3/uL (4.0-11.0) 5.1 x10^3/uL (4.0-11.0) Red Blood Count 5.48 x10^6/uL (4.30-5.70) 4.76 x10^6/uL (4.30-5.70) Hemoglobin 16.7 g/dL (13.0-17.5) 14.5 g/dL (13.0-17.5) Hematocrit 49.0 % (39.0-53.0) 43.0 % (39.0-53.0) Mean Corpuscular Volume 90 fL (79-100) 90 fL (79-100) Mean Corpuscular Hemoglobin 30 pg (25-35) 31 pg (25-35) Mean Corpuscular Hemoglobin Concent 34 g/dL (31-37) 34 g/dL (31-37) Red Cell Distribution Width 12.7 % (11.5-14.5) 12.8 % (11.5-14.5) Platelet Count 228 x10^3/uL (140-400) 198 x10^3/uL (140-400) Neutrophils (%) (Auto) 77 % (31-73) 38 % (31-73) Lymphocytes (%) (Auto) 9 % (24-48) 38 % (24-48) Monocytes (%) (Auto) 13 % (0-9) 19 % (0-9) Eosinophils (%) (Auto) 1 % (0-3) 4 % (0-3) Basophils (%) (Auto) 0 % (0-3) 1 % (0-3) Neutrophils # (Auto) 7.4 x10^3uL (1.8-7.7) 1.9 x10^3uL (1.8-7.7) Lymphocytes # (Auto) 0.9 x10^3/uL (1.0-4.8) 1.9 x10^3/uL (1.0-4.8) Monocytes # (Auto) 1.2 x10^3/uL (0.0-1.1) 1.0 x10^3/uL (0.0-1.1) Eosinophils # (Auto) 0.1 x10^3/uL (0.0-0.7) 0.2 x10^3/uL (0.0-0.7) Basophils # (Auto) 0.0 x10^3/uL (0.0-0.2) 0.0 x10^3/uL (0.0-0.2) Sodium Level 138 mmol/L (136-145) 141 mmol/L (136-145) Potassium Level 4.1 mmol/L (3.5-5.1) 3.6 mmol/L (3.5-5.1) Chloride Level 101 mmol/L (98-107) 108 mmol/L (98-107) Carbon Dioxide Level 28 mmol/L (21-32) 28 mmol/L (21-32) Anion Gap 9 (6-14) 5 (6-14) Blood Urea Nitrogen 13 mg/dL (8-26) 12 mg/dL (8-26) Creatinine 0.9 mg/dL (0.7-1.3) 0.7 mg/dL (0.7-1.3) Estimated GFR (Cockcroft-Gault) 104.6 139.8 BUN/Creatinine Ratio 14 (6-20) Glucose Level 83 mg/dL (70-99) 105 mg/dL (70-99) Calcium Level 9.5 mg/dL (8.5-10.1) 8.3 mg/dL (8.5-10.1) Total Bilirubin 1.3 mg/dL (0.2-1.0) Aspartate Amino Transf (AST/SGOT) 15 U/L (15-37) Alanine Aminotransferase (ALT/SGPT) 22 U/L (16-63) Alkaline Phosphatase 50 U/L (46-116) Total Protein 8.5 g/dL (6.4-8.2) Albumin 4.1 g/dL (3.4-5.0) Albumin/Globulin Ratio 0.9 (1.0-1.7) Lipase 64 U/L (73-393) Urine Collection Type Unknown Urine Color Yellow Urine Clarity Clear Urine pH 7.5 Urine Specific [place] 1.020 Urine Protein Negative mg/dL (NEG-TRACE) Urine Glucose (UA) Negative mg/dL (NEG) Urine Ketones (Stick) 40 mg/dL (NEG) Urine Blood Trace (NEG) Urine Nitrite Negative (NEG) Urine Bilirubin Negative (NEG) Urine Urobilinogen Dipstick 1.0 mg/dL (0.2 mg/dL) Urine Leukocyte Esterase Negative (NEG) Urine RBC 3-5 /HPF (0-2) Urine WBC Occ /HPF (0-4) Urine Squamous Epithelial Cells None /LPF Urine Bacteria Few /HPF (0-FEW) Urine Mucus Marked /LPF Laboratory Tests Test 03/01/17 13:08 03/01/17 14:35 03/02/17 04:15 White Blood Count 9.5 x10^3/uL (4.0-11.0) 5.1 x10^3/uL (4.0-11.0) Red Blood Count 5.48 x10^6/uL (4.30-5.70) 4.76 x10^6/uL (4.30-5.70) Hemoglobin 16.7 g/dL (13.0-17.5) 14.5 g/dL (13.0-17.5) Hematocrit 49.0 % (39.0-53.0) 43.0 % (39.0-53.0) Mean Corpuscular Volume 90 fL (79-100) 90 fL (79-100) Mean Corpuscular Hemoglobin 30 pg (25-35) 31 pg (25-35) Mean Corpuscular Hemoglobin Concent 34 g/dL (31-37) 34 g/dL (31-37) Red Cell Distribution Width 12.7 % (11.5-14.5) 12.8 % (11.5-14.5) Platelet Count 228 x10^3/uL (140-400) 198 x10^3/uL (140-400) Neutrophils (%) (Auto) 77 % (31-73) 38 % (31-73) Lymphocytes (%) (Auto) 9 % (24-48) 38 % (24-48) Monocytes (%) (Auto) 13 % (0-9) 19 % (0-9) Eosinophils (%) (Auto) 1 % (0-3) 4 % (0-3) Basophils (%) (Auto) 0 % (0-3) 1 % (0-3) Neutrophils # (Auto) 7.4 x10^3uL (1.8-7.7) 1.9 x10^3uL (1.8-7.7) Lymphocytes # (Auto) 0.9 x10^3/uL (1.0-4.8) 1.9 x10^3/uL (1.0-4.8) Monocytes # (Auto) 1.2 x10^3/uL (0.0-1.1) 1.0 x10^3/uL (0.0-1.1) Eosinophils # (Auto) 0.1 x10^3/uL (0.0-0.7) 0.2 x10^3/uL (0.0-0.7) Basophils # (Auto) 0.0 x10^3/uL (0.0-0.2) 0.0 x10^3/uL (0.0-0.2) Sodium Level 138 mmol/L (136-145) 141 mmol/L (136-145) Potassium Level 4.1 mmol/L (3.5-5.1) 3.6 mmol/L (3.5-5.1) Chloride Level 101 mmol/L (98-107) 108 mmol/L (98-107) Carbon Dioxide Level 28 mmol/L (21-32) 28 mmol/L (21-32) Anion Gap 9 (6-14) 5 (6-14) Blood Urea Nitrogen 13 mg/dL (8-26) 12 mg/dL (8-26) Creatinine 0.9 mg/dL (0.7-1.3) 0.7 mg/dL (0.7-1.3) Estimated GFR (Cockcroft-Gault) 104.6 139.8 BUN/Creatinine Ratio 14 (6-20) Glucose Level 83 mg/dL (70-99) 105 mg/dL (70-99) Calcium Level 9.5 mg/dL (8.5-10.1) 8.3 mg/dL (8.5-10.1) Total Bilirubin 1.3 mg/dL (0.2-1.0) Aspartate Amino Transf (AST/SGOT) 15 U/L (15-37) Alanine Aminotransferase (ALT/SGPT) 22 U/L (16-63) Alkaline Phosphatase 50 U/L (46-116) Total Protein 8.5 g/dL (6.4-8.2) Albumin 4.1 g/dL (3.4-5.0) Albumin/Globulin Ratio 0.9 (1.0-1.7) Lipase 64 U/L (73-393) Urine Collection Type Unknown Urine Color Yellow Urine Clarity Clear Urine pH 7.5 Urine Specific [place] 1.020 Urine Protein Negative mg/dL (NEG-TRACE) Urine Glucose (UA) Negative mg/dL (NEG) Urine Ketones (Stick) 40 mg/dL (NEG) Urine Blood Trace (NEG) Urine Nitrite Negative (NEG) Urine Bilirubin Negative (NEG) Urine Urobilinogen Dipstick 1.0 mg/dL (0.2 mg/dL) Urine Leukocyte Esterase Negative (NEG) Urine RBC 3-5 /HPF (0-2) Urine WBC Occ /HPF (0-4) Urine Squamous Epithelial Cells None /LPF Urine Bacteria Few /HPF (0-FEW) Urine Mucus Marked /LPF Assessment/Plan Assessment/Plan abdominal pain, recent appendectomy, meckels diverticulectomy fall, abdominal pain, N/V diarrhea will check C diff observation pain control STEPHANIE GABRIEL MD 03/02/17 0957: CONSULT Allergies Allergies: Coded Allergies: prochlorperazine (Verified Adverse Reaction, Intermediate, anxious, agitated, combative, 02/26/17) Pt states this medication makes him anxious, agitated, combative tramadol (Verified Adverse Reaction, Intermediate, 02/26/17) patient states tramadol makes him angry and combative. Assessment/Plan Assessment/Plan Agree with Jennifer's assessment and plan. F/U on C Dif. Consider GI consult. No further surgical recommendations. DILLON DUGAN APRN Mar 02, 2017 09:32 STEPHANIE GABRIEL MD Mar 02, 2017 09:57
[2017-03-02 11:00] VITALS: BP 117/77
[2017-03-02 15:00] VITALS: BP 127/78
[2017-03-02 19:00] VITALS: BP 133/84
[2017-03-02] MEDS ORDERED: POLYETHYLENE GLYCOL 3350 17 GM PACKET. PO PRN (20:00)
[2017-03-02 23:00] VITALS: BP 128/84
[2017-03-03] MEDS: HYDROmorphone 2 MG/ML VIAL IVP PRN ×6 (00:01→21:14)
[2017-03-03] MEDS: ONDANSETRON PF 4 MG/2 ML VIAL. IV PRN (00:02)
[2017-03-03 03:00] VITALS: BP 128/91
[2017-03-03 06:29] LABS: BASO % 0 % (0-3); EOS % 3 % (0-3); HEMATOCRIT 45.3 % (39.0-53.0); HEMOGLOBIN 15.4 g/dL (13.0-17.5); LYMPH # 1.9 x10^3/uL (1.0-4.8); LYMPH % 31 % (24-48); MEAN CORPUSCULAR HEMOGLOBIN 30 pg (25-35); MEAN CORPUSCULAR HGB CONC 34 g/dL (31-37); MEAN CORPUSCULAR VOLUME 89 fL (79-100); MONO % 17 % (0-9); NEUT % 49 % (31-73); PLATELET COUNT 216 x10^3/uL (140-400); RED BLOOD COUNT 5.09 x10^6/uL (4.30-5.70); RED CELL DISTRIBUTION WIDTH 12.9 % (11.5-14.5); WHITE BLOOD COUNT 6.1 x10^3/uL (4.0-11.0)
[2017-03-03 06:34] LABS: ALBUMIN 3.6 g/dL (3.4-5.0); ALBUMIN/GLOBULIN RATIO 1.1 (1.0-1.7); CREATININE 0.9 mg/dL (0.7-1.3); GFR 104.6; POTASSIUM 3.4 mmol/L (3.5-5.1)
[2017-03-03 07:00] VITALS: BP 137/82
--- NOTE | 2017-03-03 09:20 | PDOC ---
SURGICAL PROGRESS NOTE Subjective Complains of abdominal pain and vomiting. Passing flatus Vital Signs Vital Signs Date Time Temp Pulse Resp B/P (MAP) Pulse Ox O2 Delivery O2 Flow Rate FiO2 03/03/17 08:15 Room Air 03/03/17 07:00 97.6 85 20 137/82 (100) 98 97.6 I&O Intake and Output 03/03/17 07:00 Intake Total 3080 ml Balance 3080 ml Intake Oral 1080 ml IV Total 2000 ml # Voids 6 PATIENT HAS A RODRIGUEZ: No General: Alert, Oriented X3, Cooperative, mild distress Abdomen: Normal bowel sounds, Soft, Other (diffusely tender) Labs Laboratory Tests Test 03/01/17 13:08 03/01/17 14:35 03/02/17 04:15 03/03/17 05:20 White Blood Count 9.5 x10^3/uL (4.0-11.0) 5.1 x10^3/uL (4.0-11.0) 6.1 x10^3/uL (4.0-11.0) Red Blood Count 5.48 x10^6/uL (4.30-5.70) 4.76 x10^6/uL (4.30-5.70) 5.09 x10^6/uL (4.30-5.70) Hemoglobin 16.7 g/dL (13.0-17.5) 14.5 g/dL (13.0-17.5) 15.4 g/dL (13.0-17.5) Hematocrit 49.0 % (39.0-53.0) 43.0 % (39.0-53.0) 45.3 % (39.0-53.0) Mean Corpuscular Volume 90 fL (79-100) 90 fL (79-100) 89 fL (79-100) Mean Corpuscular Hemoglobin 30 pg (25-35) 31 pg (25-35) 30 pg (25-35) Mean Corpuscular Hemoglobin Concent 34 g/dL (31-37) 34 g/dL (31-37) 34 g/dL (31-37) Red Cell Distribution Width 12.7 % (11.5-14.5) 12.8 % (11.5-14.5) 12.9 % (11.5-14.5) Platelet Count 228 x10^3/uL (140-400) 198 x10^3/uL (140-400) 216 x10^3/uL (140-400) Neutrophils (%) (Auto) 77 % (31-73) 38 % (31-73) 49 % (31-73) Lymphocytes (%) (Auto) 9 % (24-48) 38 % (24-48) 31 % (24-48) Monocytes (%) (Auto) 13 % (0-9) 19 % (0-9) 17 % (0-9) Eosinophils (%) (Auto) 1 % (0-3) 4 % (0-3) 3 % (0-3) Basophils (%) (Auto) 0 % (0-3) 1 % (0-3) 0 % (0-3) Neutrophils # (Auto) 7.4 x10^3uL (1.8-7.7) 1.9 x10^3uL (1.8-7.7) 3.0 x10^3uL (1.8-7.7) Lymphocytes # (Auto) 0.9 x10^3/uL (1.0-4.8) 1.9 x10^3/uL (1.0-4.8) 1.9 x10^3/uL (1.0-4.8) Monocytes # (Auto) 1.2 x10^3/uL (0.0-1.1) 1.0 x10^3/uL (0.0-1.1) 1.0 x10^3/uL (0.0-1.1) Eosinophils # (Auto) 0.1 x10^3/uL (0.0-0.7) 0.2 x10^3/uL (0.0-0.7) 0.2 x10^3/uL (0.0-0.7) Basophils # (Auto) 0.0 x10^3/uL (0.0-0.2) 0.0 x10^3/uL (0.0-0.2) 0.0 x10^3/uL (0.0-0.2) Sodium Level 138 mmol/L (136-145) 141 mmol/L (136-145) 139 mmol/L (136-145) Potassium Level 4.1 mmol/L (3.5-5.1) 3.6 mmol/L (3.5-5.1) 3.4 mmol/L (3.5-5.1) Chloride Level 101 mmol/L (98-107) 108 mmol/L (98-107) 101 mmol/L (98-107) Carbon Dioxide Level 28 mmol/L (21-32) 28 mmol/L (21-32) 30 mmol/L (21-32) Anion Gap 9 (6-14) 5 (6-14) 8 (6-14) Blood Urea Nitrogen 13 mg/dL (8-26) 12 mg/dL (8-26) 6 mg/dL (8-26) Creatinine 0.9 mg/dL (0.7-1.3) 0.7 mg/dL (0.7-1.3) 0.9 mg/dL (0.7-1.3) Estimated GFR (Cockcroft-Gault) 104.6 139.8 104.6 BUN/Creatinine Ratio 14 (6-20) 7 (6-20) Glucose Level 83 mg/dL (70-99) 105 mg/dL (70-99) 119 mg/dL (70-99) Calcium Level 9.5 mg/dL (8.5-10.1) 8.3 mg/dL (8.5-10.1) 9.0 mg/dL (8.5-10.1) Total Bilirubin 1.3 mg/dL (0.2-1.0) 1.0 mg/dL (0.2-1.0) Aspartate Amino Transf (AST/SGOT) 15 U/L (15-37) 17 U/L (15-37) Alanine Aminotransferase (ALT/SGPT) 22 U/L (16-63) 7 U/L (16-63) Alkaline Phosphatase 50 U/L (46-116) 47 U/L (46-116) Total Protein 8.5 g/dL (6.4-8.2) 7.0 g/dL (6.4-8.2) Albumin 4.1 g/dL (3.4-5.0) 3.6 g/dL (3.4-5.0) Albumin/Globulin Ratio 0.9 (1.0-1.7) 1.1 (1.0-1.7) Lipase 64 U/L (73-393) Urine Collection Type Unknown Urine Color Yellow Urine Clarity Clear Urine pH 7.5 Urine Specific [place] 1.020 Urine Protein Negative mg/dL (NEG-TRACE) Urine Glucose (UA) Negative mg/dL (NEG) Urine Ketones (Stick) 40 mg/dL (NEG) Urine Blood Trace (NEG) Urine Nitrite Negative (NEG) Urine Bilirubin Negative (NEG) Urine Urobilinogen Dipstick 1.0 mg/dL (0.2 mg/dL) Urine Leukocyte Esterase Negative (NEG) Urine RBC 3-5 /HPF (0-2) Urine WBC Occ /HPF (0-4) Urine Squamous Epithelial Cells None /LPF Urine Bacteria Few /HPF (0-FEW) Urine Mucus Marked /LPF Laboratory Tests Test 03/03/17 05:20 White Blood Count 6.1 x10^3/uL (4.0-11.0) Red Blood Count 5.09 x10^6/uL (4.30-5.70) Hemoglobin 15.4 g/dL (13.0-17.5) Hematocrit 45.3 % (39.0-53.0) Mean Corpuscular Volume 89 fL (79-100) Mean Corpuscular Hemoglobin 30 pg (25-35) Mean Corpuscular Hemoglobin Concent 34 g/dL (31-37) Red Cell Distribution Width 12.9 % (11.5-14.5) Platelet Count 216 x10^3/uL (140-400) Neutrophils (%) (Auto) 49 % (31-73) Lymphocytes (%) (Auto) 31 % (24-48) Monocytes (%) (Auto) 17 % (0-9) Eosinophils (%) (Auto) 3 % (0-3) Basophils (%) (Auto) 0 % (0-3) Neutrophils # (Auto) 3.0 x10^3uL (1.8-7.7) Lymphocytes # (Auto) 1.9 x10^3/uL (1.0-4.8) Monocytes # (Auto) 1.0 x10^3/uL (0.0-1.1) Eosinophils # (Auto) 0.2 x10^3/uL (0.0-0.7) Basophils # (Auto) 0.0 x10^3/uL (0.0-0.2) Sodium Level 139 mmol/L (136-145) Potassium Level 3.4 mmol/L (3.5-5.1) Chloride Level 101 mmol/L (98-107) Carbon Dioxide Level 30 mmol/L (21-32) Anion Gap 8 (6-14) Blood Urea Nitrogen 6 mg/dL (8-26) Creatinine 0.9 mg/dL (0.7-1.3) Estimated GFR (Cockcroft-Gault) 104.6 BUN/Creatinine Ratio 7 (6-20) Glucose Level 119 mg/dL (70-99) Calcium Level 9.0 mg/dL (8.5-10.1) Total Bilirubin 1.0 mg/dL (0.2-1.0) Aspartate Amino Transf (AST/SGOT) 17 U/L (15-37) Alanine Aminotransferase (ALT/SGPT) 7 U/L (16-63) Alkaline Phosphatase 47 U/L (46-116) Total Protein 7.0 g/dL (6.4-8.2) Albumin 3.6 g/dL (3.4-5.0) Albumin/Globulin Ratio 1.1 (1.0-1.7) Problem List Problems Medical Problems: (1) Intractable generalized abdominal pain Status: Acute (2) Vomiting Status: Acute Assessment/Plan Abd pain with vomiting. Consult GI for evaluation. Appears clinically stable from his surgery. Problems: STEPHANIE GABRIEL MD Mar 03, 2017 9:20 am
[2017-03-03 11:00] VITALS: BP 125/78
[2017-03-03] MEDS ORDERED: hydrALAZINE 20 MG/ML VIAL. IVP PRN (11:30)
[2017-03-03] MEDS ORDERED: DOCUSATE SODIUM 100 MG CAPSULE. PO PRN (11:30)
[2017-03-03] MEDS ORDERED: HYDROmorphone 2 MG/ML VIAL IVP PRN (11:30)
[2017-03-03] MEDS ORDERED: ACETAMINOPHEN 325 MG TABLET. PO PRN (11:30)
[2017-03-03] MEDS ORDERED: ONDANSETRON PF 4 MG/2 ML VIAL. IV PRN (11:30)
[2017-03-03] MEDS ORDERED: POTASSIUM CHLORIDE 20 MEQ/15 ML ORAL LIQUID. PO ONE (11:45)
[2017-03-03] MEDS: oxyCODONE/APAP 5/325 1 TAB TABLET PO PRN ×2 (12:13→20:29)
[2017-03-03] MEDS: IV NORMAL SALINE 1000ML BAG 1,000 ML IV SCH (12:13)
--- NOTE | 2017-03-03 13:57 | PDOC ---
PROGRESS NOTES Chief Complaint Chief Complaint Intractable abd pain ASSESSMENT AND PLAN: . Abd pain: no abn on CT or labs. doubt surgery related Constipation: anticipate worsening with narcotics. start miralax hypokalemia plan: fu with sx, no intervention gi consult abd pain is at sx area (before was LUQ which has no pain) clear liquid, if pain better, advance diet increase dilaudid to 1mg iv prn ivf replete K dvt ppx History of Present Illness History of Present Illness ROS: no fever, chills, sob or chest pain c/o severe abd pain, not controlled with iv dilaudid 0.6 cont N/V pt said never filled the pain meds in the pharmacy who refused to give to him with the script, said" ur doc didnot put in the computer" as per pt. Vitals Vitals Vital Signs Date Time Temp Pulse Resp B/P (MAP) Pulse Ox O2 Delivery O2 Flow Rate FiO2 03/03/17 12:13 Room Air 03/03/17 11:00 98.2 81 20 125/78 (94) 98 98.2 Physical Exam General: Alert, Oriented X3, Cooperative, mild distress Heart: Regular rate, Normal S1, Normal S2 Lungs: Clear Abdomen: Normal bowel sounds, Soft, Other (sx area severe tenderness) Extremities: No edema Skin: No rashes, No breakdown Labs LABS Laboratory Tests Test 03/03/17 05:20 White Blood Count 6.1 x10^3/uL (4.0-11.0) Red Blood Count 5.09 x10^6/uL (4.30-5.70) Hemoglobin 15.4 g/dL (13.0-17.5) Hematocrit 45.3 % (39.0-53.0) Mean Corpuscular Volume 89 fL (79-100) Mean Corpuscular Hemoglobin 30 pg (25-35) Mean Corpuscular Hemoglobin Concent 34 g/dL (31-37) Red Cell Distribution Width 12.9 % (11.5-14.5) Platelet Count 216 x10^3/uL (140-400) Neutrophils (%) (Auto) 49 % (31-73) Lymphocytes (%) (Auto) 31 % (24-48) Monocytes (%) (Auto) 17 % (0-9) Eosinophils (%) (Auto) 3 % (0-3) Basophils (%) (Auto) 0 % (0-3) Neutrophils # (Auto) 3.0 x10^3uL (1.8-7.7) Lymphocytes # (Auto) 1.9 x10^3/uL (1.0-4.8) Monocytes # (Auto) 1.0 x10^3/uL (0.0-1.1) Eosinophils # (Auto) 0.2 x10^3/uL (0.0-0.7) Basophils # (Auto) 0.0 x10^3/uL (0.0-0.2) Sodium Level 139 mmol/L (136-145) Potassium Level 3.4 mmol/L (3.5-5.1) Chloride Level 101 mmol/L (98-107) Carbon Dioxide Level 30 mmol/L (21-32) Anion Gap 8 (6-14) Blood Urea Nitrogen 6 mg/dL (8-26) Creatinine 0.9 mg/dL (0.7-1.3) Estimated GFR (Cockcroft-Gault) 104.6 BUN/Creatinine Ratio 7 (6-20) Glucose Level 119 mg/dL (70-99) Calcium Level 9.0 mg/dL (8.5-10.1) Total Bilirubin 1.0 mg/dL (0.2-1.0) Aspartate Amino Transf (AST/SGOT) 17 U/L (15-37) Alanine Aminotransferase (ALT/SGPT) 7 U/L (16-63) Alkaline Phosphatase 47 U/L (46-116) Total Protein 7.0 g/dL (6.4-8.2) Albumin 3.6 g/dL (3.4-5.0) Albumin/Globulin Ratio 1.1 (1.0-1.7) Assessment and Plan Assessmemt and Plan Problems Medical Problems: (1) Intractable generalized abdominal pain Status: Acute (2) Vomiting Status: Acute Problems: Comment Review of Relevant I have reviewed the following items varinder (where applicable) has been applied. Labs Laboratory Tests Test 03/01/17 14:35 03/02/17 04:15 03/03/17 05:20 Urine Collection Type Unknown Urine Color Yellow Urine Clarity Clear Urine pH 7.5 Urine Specific Sigel 1.020 Urine Protein Negative mg/dL (NEG-TRACE) Urine Glucose (UA) Negative mg/dL (NEG) Urine Ketones (Stick) 40 mg/dL (NEG) Urine Blood Trace (NEG) Urine Nitrite Negative (NEG) Urine Bilirubin Negative (NEG) Urine Urobilinogen Dipstick 1.0 mg/dL (0.2 mg/dL) Urine Leukocyte Esterase Negative (NEG) Urine RBC 3-5 /HPF (0-2) Urine WBC Occ /HPF (0-4) Urine Squamous Epithelial Cells None /LPF Urine Bacteria Few /HPF (0-FEW) Urine Mucus Marked /LPF White Blood Count 5.1 x10^3/uL (4.0-11.0) 6.1 x10^3/uL (4.0-11.0) Red Blood Count 4.76 x10^6/uL (4.30-5.70) 5.09 x10^6/uL (4.30-5.70) Hemoglobin 14.5 g/dL (13.0-17.5) 15.4 g/dL (13.0-17.5) Hematocrit 43.0 % (39.0-53.0) 45.3 % (39.0-53.0) Mean Corpuscular Volume 90 fL (79-100) 89 fL (79-100) Mean Corpuscular Hemoglobin 31 pg (25-35) 30 pg (25-35) Mean Corpuscular Hemoglobin Concent 34 g/dL (31-37) 34 g/dL (31-37) Red Cell Distribution Width 12.8 % (11.5-14.5) 12.9 % (11.5-14.5) Platelet Count 198 x10^3/uL (140-400) 216 x10^3/uL (140-400) Neutrophils (%) (Auto) 38 % (31-73) 49 % (31-73) Lymphocytes (%) (Auto) 38 % (24-48) 31 % (24-48) Monocytes (%) (Auto) 19 % (0-9) 17 % (0-9) Eosinophils (%) (Auto) 4 % (0-3) 3 % (0-3) Basophils (%) (Auto) 1 % (0-3) 0 % (0-3) Neutrophils # (Auto) 1.9 x10^3uL (1.8-7.7) 3.0 x10^3uL (1.8-7.7) Lymphocytes # (Auto) 1.9 x10^3/uL (1.0-4.8) 1.9 x10^3/uL (1.0-4.8) Monocytes # (Auto) 1.0 x10^3/uL (0.0-1.1) 1.0 x10^3/uL (0.0-1.1) Eosinophils # (Auto) 0.2 x10^3/uL (0.0-0.7) 0.2 x10^3/uL (0.0-0.7) Basophils # (Auto) 0.0 x10^3/uL (0.0-0.2) 0.0 x10^3/uL (0.0-0.2) Sodium Level 141 mmol/L (136-145) 139 mmol/L (136-145) Potassium Level 3.6 mmol/L (3.5-5.1) 3.4 mmol/L (3.5-5.1) Chloride Level 108 mmol/L (98-107) 101 mmol/L (98-107) Carbon Dioxide Level 28 mmol/L (21-32) 30 mmol/L (21-32) Anion Gap 5 (6-14) 8 (6-14) Blood Urea Nitrogen 12 mg/dL (8-26) 6 mg/dL (8-26) Creatinine 0.7 mg/dL (0.7-1.3) 0.9 mg/dL (0.7-1.3) Estimated GFR (Cockcroft-Gault) 139.8 104.6 Glucose Level 105 mg/dL (70-99) 119 mg/dL (70-99) Calcium Level 8.3 mg/dL (8.5-10.1) 9.0 mg/dL (8.5-10.1) BUN/Creatinine Ratio 7 (6-20) Total Bilirubin 1.0 mg/dL (0.2-1.0) Aspartate Amino Transf (AST/SGOT) 17 U/L (15-37) Alanine Aminotransferase (ALT/SGPT) 7 U/L (16-63) Alkaline Phosphatase 47 U/L (46-116) Total Protein 7.0 g/dL (6.4-8.2) Albumin 3.6 g/dL (3.4-5.0) Albumin/Globulin Ratio 1.1 (1.0-1.7) Laboratory Tests Test 03/03/17 05:20 White Blood Count 6.1 x10^3/uL (4.0-11.0) Red Blood Count 5.09 x10^6/uL (4.30-5.70) Hemoglobin 15.4 g/dL (13.0-17.5) Hematocrit 45.3 % (39.0-53.0) Mean Corpuscular Volume 89 fL (79-100) Mean Corpuscular Hemoglobin 30 pg (25-35) Mean Corpuscular Hemoglobin Concent 34 g/dL (31-37) Red Cell Distribution Width 12.9 % (11.5-14.5) Platelet Count 216 x10^3/uL (140-400) Neutrophils (%) (Auto) 49 % (31-73) Lymphocytes (%) (Auto) 31 % (24-48) Monocytes (%) (Auto) 17 % (0-9) Eosinophils (%) (Auto) 3 % (0-3) Basophils (%) (Auto) 0 % (0-3) Neutrophils # (Auto) 3.0 x10^3uL (1.8-7.7) Lymphocytes # (Auto) 1.9 x10^3/uL (1.0-4.8) Monocytes # (Auto) 1.0 x10^3/uL (0.0-1.1) Eosinophils # (Auto) 0.2 x10^3/uL (0.0-0.7) Basophils # (Auto) 0.0 x10^3/uL (0.0-0.2) Sodium Level 139 mmol/L (136-145) Potassium Level 3.4 mmol/L (3.5-5.1) Chloride Level 101 mmol/L (98-107) Carbon Dioxide Level 30 mmol/L (21-32) Anion Gap 8 (6-14) Blood Urea Nitrogen 6 mg/dL (8-26) Creatinine 0.9 mg/dL (0.7-1.3) Estimated GFR (Cockcroft-Gault) 104.6 BUN/Creatinine Ratio 7 (6-20) Glucose Level 119 mg/dL (70-99) Calcium Level 9.0 mg/dL (8.5-10.1) Total Bilirubin 1.0 mg/dL (0.2-1.0) Aspartate Amino Transf (AST/SGOT) 17 U/L (15-37) Alanine Aminotransferase (ALT/SGPT) 7 U/L (16-63) Alkaline Phosphatase 47 U/L (46-116) Total Protein 7.0 g/dL (6.4-8.2) Albumin 3.6 g/dL (3.4-5.0) Albumin/Globulin Ratio 1.1 (1.0-1.7) Medications Current Medications Sodium Chloride 1,000 ml @ 1,000 mls/hr 1X ONCE IV Last administered on 03/01 13:17; Start 03/01/17 at 13:00; Stop 03/01/17 at 13:59; Status DC Ondansetron HCl (Zofran) 4 mg 1X ONCE IV Last administered on 03/01/17 13:17 ; Start 03/01/17 at 13:00; Stop 03/01/17 at 13:02; Status DC Hydromorphone HCl (Dilaudid) 1 mg 1X ONCE IV Last administered on 03/01/17 13:19; Start 03/01/17 at 13:00; Stop 03/01/17 at 13:02; Status DC Hydromorphone HCl (Dilaudid) 1 mg 1X ONCE IV Last administered on 03/01/17 14:14; Start 03/01/17 at 14:15; Stop 03/01/17 at 14:16; Status DC Ondansetron HCl (Zofran) 4 mg 1X ONCE IV Last administered on 03/01/17 14:14 ; Start 03/01/17 at 14:15; Stop 03/01/17 at 14:16; Status DC Ondansetron HCl (Zofran) 4 mg PRN Q8HRS PRN IV NAUSEA/VOMITING Last administered on 03/01/17 17:51; Start 03/01/17 at 16:00; Stop 03/02/17 at 15 :59; Status DC Fentanyl Citrate (Fentanyl 2ml Vial) 50 mcg PRN Q2HR PRN IV PAIN Last administered on 03/02/17 00:31; Start 03/01/17 at 16:00; Stop 03/02/17 at 15 :59; Status DC Sodium Chloride 1,000 ml @ 150 mls/hr Q6H40M IV Last administered on 14:27; Start 03/01/17 at 16:00; Stop 03/02/17 at 15:59; Status DC Hydromorphone HCl (Dilaudid) 1.2 mg PRN Q2HR PRN IVP PAIN Last administered on 03/02/17 19:25; Start 03/01/17 at 17:30; Stop 03/02/17 at 19:52; Status DC Ondansetron HCl (Zofran) 8 mg PRN Q8HRS PRN IV NAUSEA/VOMITING Last administered on 03/03/17 00:02; Start 03/01/17 at 17:30 Lorazepam (Ativan) 1 mg PRN Q4HRS PRN IV ANXIETY / AGITATION Last administered on 03/02/17 00:30; Start 03/01/17 at 17:30; Stop 03/02/17 at 19:52; Status DC Hydromorphone HCl (Dilaudid) 0.6 mg PRN Q2HR PRN IVP PAIN Last administered on 03/03/17 08:15; Start 03/02/17 at 20:00; Stop 03/03/17 at 11:31; Status DC Lorazepam (Ativan) 0.5 mg PRN Q4HRS PRN IV ANXIETY / AGITATION Last administered on 03/03/17 02:37; Start 03/02/17 at 20:00 Polyethylene Glycol (miraLAX PACKET) 17 gm PRN BID PRN PO CONSTIPATION Last administered on 03/03/17 08:14; Start 03/02/17 at 20:00 Hydromorphone HCl (Dilaudid) 1 mg PRN Q2HR PRN IVP PAIN severe Last administered on 03/03/17 12:12; Start 03/03/17 at 11:30 Acetaminophen (Tylenol) 650 mg PRN Q6HRS PRN PO FEVER; Start 03/03/17 at 11:30 Ondansetron HCl (Zofran) 4 mg PRN Q6HRS PRN IV NAUSEA/VOMITING; Start at 11:30 Hydralazine HCl (Apresoline Inj) 10 mg PRN Q4HRS PRN IVP ELEVATED BP, SEE COMMENTS; Start 03/03/17 at 11:30 Docusate Sodium (Colace) 100 mg PRN DAILY PRN PO CONSTIPATION; Start 03/03/17 at 11:30 Oxycodone/ Acetaminophen (Percocet 5/325) 1 tab PRN Q4HRS PRN PO PAIN MOD TO SEV Last administered on 03/03/17 12:13; Start 03/03/17 at 11:30 Sodium Chloride 1,000 ml @ 75 mls/hr [id number] IV Last administered on 12:13; Start 03/03/17 at 11:30 Potassium Chloride (KCl Oral Soln) 40 meq 1X ONCE PO Last administered on 12:12; Start 03/03/17 at 11:45; Stop 03/03/17 at 11:46; Status DC Active Scripts Active No Active Prescriptions or Reported Medications Vitals/I & O Vital Sign - Last 24 Hours 03/02/17 03/02/17 03/02/17 03/02/17 14:28 15:00 17:11 19:00 Temp 97.7 98.1 97.7 98.1 Pulse 63 70 Resp 19 16 B/P (MAP) 127/78 (94) 133/84 (100) Pulse Ox 95 95 O2 Delivery Room Air Room Air Room Air Room Air 03/02/17 03/02/17 03/02/17 03/02/17 19:25 19:55 20:14 21:35 Resp 18 18 18 Pulse Ox 95 95 95 O2 Delivery Room Air Room Air Room Air Room Air 03/02/17 03/03/17 03/03/17 03/03/17 23:00 00:01 02:30 03:00 Temp 97.7 97.5 97.7 97.5 Pulse 68 81 Resp 18 18 18 20 B/P (MAP) 128/84 (99) 128/91 (103) Pulse Ox 96 96 96 96 O2 Delivery Room Air Room Air Room Air Room Air 03/03/17 03/03/17 03/03/17 03/03/17 04:50 05:20 07:00 08:00 Temp 97.6 97.6 Pulse 85 Resp 18 18 20 B/P (MAP) 137/82 (100) Pulse Ox 96 96 98 O2 Delivery Room Air Room Air Room Air 03/03/17 03/03/17 03/03/17 03/03/17 08:15 08:45 11:00 12:12 Temp 98.2 98.2 Pulse 81 Resp 20 B/P (MAP) 125/78 (94) Pulse Ox 98 O2 Delivery Room Air Room Air Room Air 03/03/17 12:13 O2 Delivery Room Air Intake and Output 03/02/17 03/02/17 03/03/17 15:00 23:00 07:00 Intake Total 1000 ml 1360 ml 720 ml Balance 1000 ml 1360 ml 720 ml BRENNAN GAONA MD Mar 03, 2017 13:57
[2017-03-03 15:00] VITALS: BP 122/71
--- NOTE | 2017-03-03 15:02 | PDOC2 ---
GI CONSULT Reason For Consult: Abd pain, n/v HPI: HPI: 21 y/o male who we saw last week w/ recurrent left-sided abd pain, n/v, intermittent obstructive symptoms. Ultimately underwent Meckel's diverticulectomy and appendectomy on 02/26/17. Discharged on 02/28, went to [employer], fell while talking on his phone in the parking lot, landed on his right side, maybe bumped his head. Came back to the ER, reports of vomiting blood. Discharged to home from ER but back the next day; he says he tried eating breakfast his girlfriend's mom made that morning, couldn't keep in down, vomited food and blood. Since then has been unable to tolerate much PO (clear liquids here) and says has intermittently seen "dried blood" mixed w/ emesis ( last noticed last night - vomited a couple hours ago w/o blood). Says pain is mostly right-sided but also felt diffusely "like a lightening bolt." Is bothersome immediately upon waking "when he moves at all." Had some watery stools, now passing "rabbit pellets" that look white from previous contrast. Has heartburn, not unusual for him. Started PPI last time, currently not on an acid-card checker. Previous EGD in [place], [place], unremarkable, along w/ previous abd US/PIPIDA. Tired of being sick, tired of being in the hospital, tired of "all the confusion." PMH: PMH: per HPI + right wrist surgery w/ hardware FH: Family History: Other Social History: Smoke: No ALCOHOL: rare Drugs: Marijuana, Other (rare) ROS: GEN: Denies fevers, chills, sweats HEENT: Denies blurred vision, sore throat CV: Denies chest pain RESP: Denies shortness of air, cough GI: Per HPI : Denies hematuria, dysuria ENDO: +weight loss NEURO: Denies confusion, dizziness MSK: +weakness SKIN: Denies jaundice, pruritus Vitals: Vitals: Vital Signs Date Time Temp Pulse Resp B/P (MAP) Pulse Ox O2 Delivery O2 Flow Rate FiO2 03/03/17 13:13 Room Air 03/03/17 11:00 98.2 81 20 125/78 (94) 98 98.2 Labs: Labs: Laboratory Tests Test 03/03/17 05:20 White Blood Count 6.1 x10^3/uL (4.0-11.0) Red Blood Count 5.09 x10^6/uL (4.30-5.70) Hemoglobin 15.4 g/dL (13.0-17.5) Hematocrit 45.3 % (39.0-53.0) Mean Corpuscular Volume 89 fL (79-100) Mean Corpuscular Hemoglobin 30 pg (25-35) Mean Corpuscular Hemoglobin Concent 34 g/dL (31-37) Red Cell Distribution Width 12.9 % (11.5-14.5) Platelet Count 216 x10^3/uL (140-400) Neutrophils (%) (Auto) 49 % (31-73) Lymphocytes (%) (Auto) 31 % (24-48) Monocytes (%) (Auto) 17 % (0-9) Eosinophils (%) (Auto) 3 % (0-3) Basophils (%) (Auto) 0 % (0-3) Neutrophils # (Auto) 3.0 x10^3uL (1.8-7.7) Lymphocytes # (Auto) 1.9 x10^3/uL (1.0-4.8) Monocytes # (Auto) 1.0 x10^3/uL (0.0-1.1) Eosinophils # (Auto) 0.2 x10^3/uL (0.0-0.7) Basophils # (Auto) 0.0 x10^3/uL (0.0-0.2) Sodium Level 139 mmol/L (136-145) Potassium Level 3.4 mmol/L (3.5-5.1) Chloride Level 101 mmol/L (98-107) Carbon Dioxide Level 30 mmol/L (21-32) Anion Gap 8 (6-14) Blood Urea Nitrogen 6 mg/dL (8-26) Creatinine 0.9 mg/dL (0.7-1.3) Estimated GFR (Cockcroft-Gault) 104.6 BUN/Creatinine Ratio 7 (6-20) Glucose Level 119 mg/dL (70-99) Calcium Level 9.0 mg/dL (8.5-10.1) Total Bilirubin 1.0 mg/dL (0.2-1.0) Aspartate Amino Transf (AST/SGOT) 17 U/L (15-37) Alanine Aminotransferase (ALT/SGPT) 7 U/L (16-63) Alkaline Phosphatase 47 U/L (46-116) Total Protein 7.0 g/dL (6.4-8.2) Albumin 3.6 g/dL (3.4-5.0) Albumin/Globulin Ratio 1.1 (1.0-1.7) Allergies: Coded Allergies: prochlorperazine (Verified Adverse Reaction, Intermediate, anxious, agitated, combative, 02/26/17) Pt states this medication makes him anxious, agitated, combative tramadol (Verified Adverse Reaction, Intermediate, 02/26/17) patient states tramadol makes him angry and combative. Medications: Current Medications Medications (Trade) Dose Ordered Sig/Mahesh Route PRN Reason Start Time Stop Time Status Last Admin Dose Admin Hydromorphone HCl (Dilaudid) 0.6 mg PRN Q2HR PRN IVP PAIN 03/02/17 20:00 03/03/17 11:31 DC 03/03/17 08:15 Lorazepam (Ativan) 0.5 mg PRN Q4HRS PRN IV ANXIETY / AGITATION 03/02/17 20:00 03/03/17 02:37 Polyethylene Glycol (miraLAX PACKET) 17 gm PRN BID PRN PO CONSTIPATION 03/02/17 20:00 03/03/17 08:14 Hydromorphone HCl (Dilaudid) 1 mg PRN Q2HR PRN IVP PAIN severe 03/03/17 11:30 03/03/17 13:58 DC 03/03/17 12:12 Oxycodone/ Acetaminophen (Percocet 5/325) 1 tab PRN Q4HRS PRN PO PAIN MOD TO SEV 03/03/17 11:30 03/03/17 12:13 Sodium Chloride 1,000 ml @ 75 mls/hr [id number] IV 03/03/17 11:30 03/03/17 12:13 Potassium Chloride (KCl Oral Soln) 40 meq 1X ONCE PO 03/03/17 11:45 03/03/17 11:46 DC 03/03/17 12:12 Imaging: Imaging: None this admission. PE: GEN: NAD, was asleep HEENT: Atraumatic, PERRL LUNGS: CTAB HEART: RRR ABD: NABS, diffusely tender, currently RUQ to right flank toward RLQ, also epigastrium and incisional (umbilical, LLQ) EXTREMITY: No edema SKIN: No rashes, no jaundice NEURO/PSYCH: A & O 3 A/P: A/P: Recurrent abd pain, n/v -unable to tolerate clear liquids, needs Dilaudid ?hematemesis -reported last admission as well, Hgb and BUN remain WNL -says intermittently sees dried blood mixed w/ emesis Heartburn -normal EGD in [place] -started PPI last admission S/p Meckel's diverticulectomy and appendectomy 02/26/17 Constipation -has Miralax PRN Recent fall -- Reviewed w/ Dr. Dickson - GES tomorrow. Add acid-card checker - IV for now w/ vomiting. YOEL HINDS Mar 03, 2017 15:02
[2017-03-03 19:00] VITALS: BP 85/47
[2017-03-03] MEDS: FAMOTIDINE 20 MG/2 ML VIAL IVP SCH (20:29)
[2017-03-03 23:00] VITALS: BP 118/75
[2017-03-04] MEDS: HYDROmorphone 2 MG/ML VIAL IVP PRN ×4 (00:21→11:19)
[2017-03-04] MEDS: oxyCODONE/APAP 5/325 1 TAB TABLET PO PRN ×2 (01:50→22:40)
[2017-03-04 03:00] VITALS: BP 134/85
[2017-03-04] MEDS: IV NORMAL SALINE 1000ML BAG 1,000 ML IV SCH ×3 (03:24→22:42)
[2017-03-04 05:21] LABS: BASO % 1 % (0-3); EOS % 3 % (0-3); HEMATOCRIT 45.3 % (39.0-53.0); HEMOGLOBIN 15.4 g/dL (13.0-17.5); LYMPH # 1.7 x10^3/uL (1.0-4.8); LYMPH % 33 % (24-48); MEAN CORPUSCULAR HEMOGLOBIN 30 pg (25-35); MEAN CORPUSCULAR HGB CONC 34 g/dL (31-37); MEAN CORPUSCULAR VOLUME 88 fL (79-100); MONO % 17 % (0-9); NEUT % 46 % (31-73); PLATELET COUNT 205 x10^3/uL (140-400); RED BLOOD COUNT 5.15 x10^6/uL (4.30-5.70); RED CELL DISTRIBUTION WIDTH 12.8 % (11.5-14.5)
[2017-03-04 06:11] LABS: CALCIUM 9.1 mg/dL (8.5-10.1); CREATININE 0.7 mg/dL (0.7-1.3); GFR 139.8; POTASSIUM 3.7 mmol/L (3.5-5.1)
[2017-03-04 07:00] VITALS: BP 99/63
[2017-03-04] MEDS: FAMOTIDINE 20 MG/2 ML VIAL IVP SCH ×2 (08:16→21:03)
--- NOTE | 2017-03-04 10:35 | RAD ---
Gastric emptying study 03/04/2017 Indication: Nausea, vomiting, abdominal pain x1 week. Comparison study: None Discussion: Imaging over the abdomen was performed following the oral administration of 2 mCi of technetium 99m labeled sulfur colloid in an solid meal. Scintigraphic emptying of the stomach was measured over approximately 1 hour. Gastric emptying half time is estimated at 176 minutes (normal gastric emptying times are approximately 60 minutes +/- 30 minutes). No overt scintigraphic evidence of reflex was identified. Small amount of radiotracer is noted emptying into what appears to be small bowel. Impression: Delayed gastric emptying
[2017-03-04] MEDS ORDERED: fentaNYL PF VIAL 100 MCG/2 ML VIAL IV ONE (10:45)
[2017-03-04] MEDS: METOCLOPRAMIDE HCL 10 MG/2 ML VIAL. IV SCH ×3 (11:07→21:00)
[2017-03-04 11:08] VITALS: BP 124/76
[2017-03-04 15:13] VITALS: BP 129/87
--- NOTE | 2017-03-04 15:20 | PDOC ---
Subjective: Subjective: Still vomiting, still abd pain. Wants to go home tomorrow. Objective: Vital Signs: Vital Signs Date Time Temp Pulse Resp B/P (MAP) Pulse Ox O2 Delivery O2 Flow Rate FiO2 03/04/17 15:13 97.9 86 20 129/87 (101) 96 Room Air 97.9 Labs: Laboratory Tests Test 03/04/17 04:40 White Blood Count 5.0 x10^3/uL Red Blood Count 5.15 x10^6/uL Hemoglobin 15.4 g/dL Hematocrit 45.3 % Mean Corpuscular Volume 88 fL Mean Corpuscular Hemoglobin 30 pg Mean Corpuscular Hemoglobin Concent 34 g/dL Red Cell Distribution Width 12.8 % Platelet Count 205 x10^3/uL Neutrophils (%) (Auto) 46 % Lymphocytes (%) (Auto) 33 % Monocytes (%) (Auto) 17 % Eosinophils (%) (Auto) 3 % Basophils (%) (Auto) 1 % Neutrophils # (Auto) 2.3 x10^3uL Lymphocytes # (Auto) 1.7 x10^3/uL Monocytes # (Auto) 0.9 x10^3/uL Eosinophils # (Auto) 0.2 x10^3/uL Basophils # (Auto) 0.0 x10^3/uL Sodium Level 138 mmol/L Potassium Level 3.7 mmol/L Chloride Level 103 mmol/L Carbon Dioxide Level 26 mmol/L Anion Gap 9 Blood Urea Nitrogen 10 mg/dL Creatinine 0.7 mg/dL Estimated GFR (Cockcroft-Gault) 139.8 Glucose Level 95 mg/dL Calcium Level 9.1 mg/dL Imaging: GES Impression: Delayed gastric emptying, T1/2 176 min. PE: GEN: NAD, was asleep LUNGS: CTAB HEART: RRR ABD: tender NEURO/PSYCH: A & O 3, flat/quiet A/P: Delayed gastric emptying Recurrent abd pain, n/v S/p Meckel's diverticulectomy and appendectomy 02/26/17 GERD -- Start IV Reglan (Dr. Levy added). YOEL HINDS Mar 04, 2017 15:20
--- NOTE | 2017-03-04 16:03 | PDOC ---
PROGRESS NOTES Chief Complaint Chief Complaint Intractable abd pain ASSESSMENT AND PLAN: . Abd pain: no abn on CT or labs. doubt surgery relatedj, 2/2 gatroparesis likely Constipation: anticipate worsening with narcotics. start miralax hypokalemia plan: fu with sx, no intervention gi consulted abd pain is at sx area (before was LUQ which has no pain) clear liquid, if pain better, advance diet increase dilaudid to 1mg iv prn ivf add reglan qid replete K dvt ppx History of Present Illness History of Present Illness ROS: no fever, chills, sob or chest pain c/o severe abd pain, not controlled with iv dilaudid 0.6 cont N/V pt said never filled the pain meds in the pharmacy who refused to give to him with the script, said" ur doc didnot put in the computer" as per pt. c/o staff who didnot give pain meds as needed + GES Vitals Vitals Vital Signs Date Time Temp Pulse Resp B/P (MAP) Pulse Ox O2 Delivery O2 Flow Rate FiO2 03/04/17 15:13 97.9 86 20 129/87 (101) 96 Room Air 97.9 Physical Exam General: Alert, Oriented X3, Cooperative, mild distress Heart: Regular rate, Normal S1, Normal S2 Lungs: Clear Abdomen: Normal bowel sounds, Soft, Other (sx area severe tenderness) Extremities: No edema Skin: No rashes, No breakdown Labs LABS Laboratory Tests Test 03/04/17 04:40 White Blood Count 5.0 x10^3/uL (4.0-11.0) Red Blood Count 5.15 x10^6/uL (4.30-5.70) Hemoglobin 15.4 g/dL (13.0-17.5) Hematocrit 45.3 % (39.0-53.0) Mean Corpuscular Volume 88 fL (79-100) Mean Corpuscular Hemoglobin 30 pg (25-35) Mean Corpuscular Hemoglobin Concent 34 g/dL (31-37) Red Cell Distribution Width 12.8 % (11.5-14.5) Platelet Count 205 x10^3/uL (140-400) Neutrophils (%) (Auto) 46 % (31-73) Lymphocytes (%) (Auto) 33 % (24-48) Monocytes (%) (Auto) 17 % (0-9) Eosinophils (%) (Auto) 3 % (0-3) Basophils (%) (Auto) 1 % (0-3) Neutrophils # (Auto) 2.3 x10^3uL (1.8-7.7) Lymphocytes # (Auto) 1.7 x10^3/uL (1.0-4.8) Monocytes # (Auto) 0.9 x10^3/uL (0.0-1.1) Eosinophils # (Auto) 0.2 x10^3/uL (0.0-0.7) Basophils # (Auto) 0.0 x10^3/uL (0.0-0.2) Sodium Level 138 mmol/L (136-145) Potassium Level 3.7 mmol/L (3.5-5.1) Chloride Level 103 mmol/L (98-107) Carbon Dioxide Level 26 mmol/L (21-32) Anion Gap 9 (6-14) Blood Urea Nitrogen 10 mg/dL (8-26) Creatinine 0.7 mg/dL (0.7-1.3) Estimated GFR (Cockcroft-Gault) 139.8 Glucose Level 95 mg/dL (70-99) Calcium Level 9.1 mg/dL (8.5-10.1) Assessment and Plan Assessmemt and Plan Problems Medical Problems: (1) Intractable generalized abdominal pain Status: Acute (2) Vomiting Status: Acute Problems: Comment Review of Relevant I have reviewed the following items varinder (where applicable) has been applied. Labs Laboratory Tests Test 03/03/17 05:20 03/04/17 04:40 White Blood Count 6.1 x10^3/uL (4.0-11.0) 5.0 x10^3/uL (4.0-11.0) Red Blood Count 5.09 x10^6/uL (4.30-5.70) 5.15 x10^6/uL (4.30-5.70) Hemoglobin 15.4 g/dL (13.0-17.5) 15.4 g/dL (13.0-17.5) Hematocrit 45.3 % (39.0-53.0) 45.3 % (39.0-53.0) Mean Corpuscular Volume 89 fL (79-100) 88 fL (79-100) Mean Corpuscular Hemoglobin 30 pg (25-35) 30 pg (25-35) Mean Corpuscular Hemoglobin Concent 34 g/dL (31-37) 34 g/dL (31-37) Red Cell Distribution Width 12.9 % (11.5-14.5) 12.8 % (11.5-14.5) Platelet Count 216 x10^3/uL (140-400) 205 x10^3/uL (140-400) Neutrophils (%) (Auto) 49 % (31-73) 46 % (31-73) Lymphocytes (%) (Auto) 31 % (24-48) 33 % (24-48) Monocytes (%) (Auto) 17 % (0-9) 17 % (0-9) Eosinophils (%) (Auto) 3 % (0-3) 3 % (0-3) Basophils (%) (Auto) 0 % (0-3) 1 % (0-3) Neutrophils # (Auto) 3.0 x10^3uL (1.8-7.7) 2.3 x10^3uL (1.8-7.7) Lymphocytes # (Auto) 1.9 x10^3/uL (1.0-4.8) 1.7 x10^3/uL (1.0-4.8) Monocytes # (Auto) 1.0 x10^3/uL (0.0-1.1) 0.9 x10^3/uL (0.0-1.1) Eosinophils # (Auto) 0.2 x10^3/uL (0.0-0.7) 0.2 x10^3/uL (0.0-0.7) Basophils # (Auto) 0.0 x10^3/uL (0.0-0.2) 0.0 x10^3/uL (0.0-0.2) Sodium Level 139 mmol/L (136-145) 138 mmol/L (136-145) Potassium Level 3.4 mmol/L (3.5-5.1) 3.7 mmol/L (3.5-5.1) Chloride Level 101 mmol/L (98-107) 103 mmol/L (98-107) Carbon Dioxide Level 30 mmol/L (21-32) 26 mmol/L (21-32) Anion Gap 8 (6-14) 9 (6-14) Blood Urea Nitrogen 6 mg/dL (8-26) 10 mg/dL (8-26) Creatinine 0.9 mg/dL (0.7-1.3) 0.7 mg/dL (0.7-1.3) Estimated GFR (Cockcroft-Gault) 104.6 139.8 BUN/Creatinine Ratio 7 (6-20) Glucose Level 119 mg/dL (70-99) 95 mg/dL (70-99) Calcium Level 9.0 mg/dL (8.5-10.1) 9.1 mg/dL (8.5-10.1) Total Bilirubin 1.0 mg/dL (0.2-1.0) Aspartate Amino Transf (AST/SGOT) 17 U/L (15-37) Alanine Aminotransferase (ALT/SGPT) 7 U/L (16-63) Alkaline Phosphatase 47 U/L (46-116) Total Protein 7.0 g/dL (6.4-8.2) Albumin 3.6 g/dL (3.4-5.0) Albumin/Globulin Ratio 1.1 (1.0-1.7) Laboratory Tests Test 03/04/17 04:40 White Blood Count 5.0 x10^3/uL (4.0-11.0) Red Blood Count 5.15 x10^6/uL (4.30-5.70) Hemoglobin 15.4 g/dL (13.0-17.5) Hematocrit 45.3 % (39.0-53.0) Mean Corpuscular Volume 88 fL (79-100) Mean Corpuscular Hemoglobin 30 pg (25-35) Mean Corpuscular Hemoglobin Concent 34 g/dL (31-37) Red Cell Distribution Width 12.8 % (11.5-14.5) Platelet Count 205 x10^3/uL (140-400) Neutrophils (%) (Auto) 46 % (31-73) Lymphocytes (%) (Auto) 33 % (24-48) Monocytes (%) (Auto) 17 % (0-9) Eosinophils (%) (Auto) 3 % (0-3) Basophils (%) (Auto) 1 % (0-3) Neutrophils # (Auto) 2.3 x10^3uL (1.8-7.7) Lymphocytes # (Auto) 1.7 x10^3/uL (1.0-4.8) Monocytes # (Auto) 0.9 x10^3/uL (0.0-1.1) Eosinophils # (Auto) 0.2 x10^3/uL (0.0-0.7) Basophils # (Auto) 0.0 x10^3/uL (0.0-0.2) Sodium Level 138 mmol/L (136-145) Potassium Level 3.7 mmol/L (3.5-5.1) Chloride Level 103 mmol/L (98-107) Carbon Dioxide Level 26 mmol/L (21-32) Anion Gap 9 (6-14) Blood Urea Nitrogen 10 mg/dL (8-26) Creatinine 0.7 mg/dL (0.7-1.3) Estimated GFR (Cockcroft-Gault) 139.8 Glucose Level 95 mg/dL (70-99) Calcium Level 9.1 mg/dL (8.5-10.1) Medications Current Medications Sodium Chloride 1,000 ml @ 1,000 mls/hr 1X ONCE IV Last administered on 03/01 13:17; Start 03/01/17 at 13:00; Stop 03/01/17 at 13:59; Status DC Ondansetron HCl (Zofran) 4 mg 1X ONCE IV Last administered on 03/01/17 13:17 ; Start 03/01/17 at 13:00; Stop 03/01/17 at 13:02; Status DC Hydromorphone HCl (Dilaudid) 1 mg 1X ONCE IV Last administered on 03/01/17 13:19; Start 03/01/17 at 13:00; Stop 03/01/17 at 13:02; Status DC Hydromorphone HCl (Dilaudid) 1 mg 1X ONCE IV Last administered on 03/01/17 14:14; Start 03/01/17 at 14:15; Stop 03/01/17 at 14:16; Status DC Ondansetron HCl (Zofran) 4 mg 1X ONCE IV Last administered on 03/01/17 14:14 ; Start 03/01/17 at 14:15; Stop 03/01/17 at 14:16; Status DC Ondansetron HCl (Zofran) 4 mg PRN Q8HRS PRN IV NAUSEA/VOMITING Last administered on 03/01/17 17:51; Start 03/01/17 at 16:00; Stop 03/02/17 at 15 :59; Status DC Fentanyl Citrate (Fentanyl 2ml Vial) 50 mcg PRN Q2HR PRN IV PAIN Last administered on 03/02/17 00:31; Start 03/01/17 at 16:00; Stop 03/02/17 at 15 :59; Status DC Sodium Chloride 1,000 ml @ 150 mls/hr Q6H40M IV Last administered on 14:27; Start 03/01/17 at 16:00; Stop 03/02/17 at 15:59; Status DC Hydromorphone HCl (Dilaudid) 1.2 mg PRN Q2HR PRN IVP PAIN Last administered on 03/02/17 19:25; Start 03/01/17 at 17:30; Stop 03/02/17 at 19:52; Status DC Ondansetron HCl (Zofran) 8 mg PRN Q8HRS PRN IV NAUSEA/VOMITING Last administered on 03/03/17 00:02; Start 03/01/17 at 17:30 Lorazepam (Ativan) 1 mg PRN Q4HRS PRN IV ANXIETY / AGITATION Last administered on 03/02/17 00:30; Start 03/01/17 at 17:30; Stop 03/02/17 at 19:52; Status DC Hydromorphone HCl (Dilaudid) 0.6 mg PRN Q2HR PRN IVP PAIN Last administered on 03/03/17 08:15; Start 03/02/17 at 20:00; Stop 03/03/17 at 11:31; Status DC Lorazepam (Ativan) 0.5 mg PRN Q4HRS PRN IV ANXIETY / AGITATION Last administered on 03/04/17 01:50; Start 03/02/17 at 20:00 Polyethylene Glycol (miraLAX PACKET) 17 gm PRN BID PRN PO CONSTIPATION Last administered on 03/03/17 08:14; Start 03/02/17 at 20:00 Hydromorphone HCl (Dilaudid) 1 mg PRN Q2HR PRN IVP PAIN severe Last administered on 03/03/17 12:12; Start 03/03/17 at 11:30; Stop 03/03/17 at 13 :58; Status DC Acetaminophen (Tylenol) 650 mg PRN Q6HRS PRN PO FEVER; Start 03/03/17 at 11:30 Ondansetron HCl (Zofran) 4 mg PRN Q6HRS PRN IV NAUSEA/VOMITING; Start at 11:30 Hydralazine HCl (Apresoline Inj) 10 mg PRN Q4HRS PRN IVP ELEVATED BP, SEE COMMENTS; Start 03/03/17 at 11:30 Docusate Sodium (Colace) 100 mg PRN DAILY PRN PO CONSTIPATION; Start 03/03/17 at 11:30 Oxycodone/ Acetaminophen (Percocet 5/325) 1 tab PRN Q4HRS PRN PO PAIN MOD TO SEV Last administered on 03/04/17 01:50; Start 03/03/17 at 11:30 Sodium Chloride 1,000 ml @ 75 mls/hr [id number] IV Last administered on 03:24; Start 03/03/17 at 11:30 Potassium Chloride (KCl Oral Soln) 40 meq 1X ONCE PO Last administered on 12:12; Start 03/03/17 at 11:45; Stop 03/03/17 at 11:46; Status DC Hydromorphone HCl (Dilaudid) 1 mg PRN Q3HRS PRN IVP PAIN severe Last administered on 03/04/17 11:19; Start 03/03/17 at 14:00 Famotidine (Pepcid Vial) 20 mg BID IVP Last administered on 03/04/17 08:16; Start 03/03/17 at 21:00 Fentanyl Citrate (Fentanyl 2ml Vial) 50 mcg 1X ONCE IV Last administered on 11:06; Start 03/04/17 at 10:45; Stop 03/04/17 at 10:51; Status DC Metoclopramide HCl (Reglan Vial) 10 mg QIDACHS IV Last administered on 11:07; Start 03/04/17 at 11:30 Active Scripts Active No Active Prescriptions or Reported Medications Vitals/I & O Vital Sign - Last 24 Hours 03/03/17 03/03/17 03/03/17 03/03/17 19:00 19:32 20:29 21:14 Temp 98.3 98.3 Pulse 54 Resp 18 18 18 B/P (MAP) 85/47 (60) Pulse Ox 98 97 97 O2 Delivery Room Air Room Air Room Air Room Air 03/03/17 03/03/17 03/04/17 03/04/17 21:29 23:00 00:21 01:50 Temp 98.4 98.4 Pulse 79 Resp 18 18 18 18 B/P (MAP) 118/75 (89) Pulse Ox 97 98 97 97 O2 Delivery Room Air Room Air Room Air Room Air 03/04/17 03/04/17 03/04/17 03/04/17 03:00 03:24 07:00 08:00 Temp 99.8 98.1 99.8 98.1 Pulse 65 75 Resp 18 18 20 B/P (MAP) 134/85 (101) 99/63 (75) Pulse Ox 97 97 99 O2 Delivery Room Air Room Air Room Air Room Air 03/04/17 03/04/17 03/04/17 03/04/17 08:13 11:06 11:08 11:19 Temp 97.9 97.9 Pulse 85 Resp 20 20 20 20 B/P (MAP) 124/76 (92) Pulse Ox 99 99 98 98 O2 Delivery Room Air Room Air Room Air Room Air 03/04/17 03/04/17 03/04/17 11:49 11:49 15:13 Temp 97.9 97.9 Pulse 86 Resp 20 20 20 B/P (MAP) 129/87 (101) Pulse Ox 98 98 96 O2 Delivery Room Air Room Air Room Air Intake and Output 03/03/17 03/03/17 03/04/17 15:00 23:00 07:00 Intake Total 0 ml 480 ml 1850 ml Output Total 920 ml 1 ml Balance -920 ml 479 ml 1850 ml BRENNAN GAONA MD Mar 04, 2017 16:03
[2017-03-04] MEDS: fentaNYL PF VIAL 100 MCG/2 ML VIAL IV PRN ×2 (17:39→21:04)
[2017-03-04 19:00] VITALS: BP 136/95
[2017-03-04 23:00] VITALS: BP 112/56
[2017-03-05] MEDS: fentaNYL PF VIAL 100 MCG/2 ML VIAL IV PRN ×4 (00:14→17:20)
[2017-03-05 05:38] LABS: BASO % 1 % (0-3); EOS % 2 % (0-3); HEMATOCRIT 46.2 % (39.0-53.0); HEMOGLOBIN 15.6 g/dL (13.0-17.5); LYMPH # 1.8 x10^3/uL (1.0-4.8); LYMPH % 33 % (24-48); MEAN CORPUSCULAR HEMOGLOBIN 30 pg (25-35); MEAN CORPUSCULAR HGB CONC 34 g/dL (31-37); MEAN CORPUSCULAR VOLUME 89 fL (79-100); MONO % 22 % (0-9); NEUT % 43 % (31-73); PLATELET COUNT 182 x10^3/uL (140-400); RED CELL DISTRIBUTION WIDTH 12.7 % (11.5-14.5); WHITE BLOOD COUNT 5.4 x10^3/uL (4.0-11.0)
[2017-03-05 07:00] VITALS: BP 106/60
[2017-03-05] MEDS: METOCLOPRAMIDE HCL 10 MG/2 ML VIAL. IV SCH ×3 (07:30→16:30)
[2017-03-05] MEDS: FAMOTIDINE 20 MG/2 ML VIAL IVP SCH (09:01)
[2017-03-05 09:03] LABS: % EOS 1 % (0-5); PLT ESTIMATE ADEQUATE (ADEQUATE)
[2017-03-05] MEDS ORDERED: HYDROmorphone 2 MG/ML VIAL IV PRN (10:15)
[2017-03-05 11:00] VITALS: BP 117/69
--- NOTE | 2017-03-05 11:38 | PDOC ---
DILLON DUGAN [employer] 03/05/17 1138: SURGICAL PROGRESS NOTE Subjective ongoing diffuse abdominal pain bloody emesis last night per pt/notes Vital Signs Vital Signs Date Time Temp Pulse Resp B/P (MAP) Pulse Ox O2 Delivery O2 Flow Rate FiO2 03/05/17 09:40 Room Air 03/05/17 07:00 98.5 54 18 106/60 (75) 96 98.5 I&O Intake and Output 03/05/17 06:59 Intake Total 1116 ml Balance 1116 ml IV Total 1116 ml # Voids 7 General: Alert, Oriented X3, Cooperative, No acute distress Abdomen: Soft, Other (tender diffusely ) Labs Laboratory Tests Test 03/04/17 04:40 03/05/17 03:45 White Blood Count 5.0 x10^3/uL (4.0-11.0) 5.4 x10^3/uL (4.0-11.0) Red Blood Count 5.15 x10^6/uL (4.30-5.70) 5.20 x10^6/uL (4.30-5.70) Hemoglobin 15.4 g/dL (13.0-17.5) 15.6 g/dL (13.0-17.5) Hematocrit 45.3 % (39.0-53.0) 46.2 % (39.0-53.0) Mean Corpuscular Volume 88 fL (79-100) 89 fL (79-100) Mean Corpuscular Hemoglobin 30 pg (25-35) 30 pg (25-35) Mean Corpuscular Hemoglobin Concent 34 g/dL (31-37) 34 g/dL (31-37) Red Cell Distribution Width 12.8 % (11.5-14.5) 12.7 % (11.5-14.5) Platelet Count 205 x10^3/uL (140-400) 182 x10^3/uL (140-400) Neutrophils (%) (Auto) 46 % (31-73) 43 % (31-73) Lymphocytes (%) (Auto) 33 % (24-48) 33 % (24-48) Monocytes (%) (Auto) 17 % (0-9) 22 % (0-9) Eosinophils (%) (Auto) 3 % (0-3) 2 % (0-3) Basophils (%) (Auto) 1 % (0-3) 1 % (0-3) Neutrophils # (Auto) 2.3 x10^3uL (1.8-7.7) 2.3 x10^3uL (1.8-7.7) Lymphocytes # (Auto) 1.7 x10^3/uL (1.0-4.8) 1.8 x10^3/uL (1.0-4.8) Monocytes # (Auto) 0.9 x10^3/uL (0.0-1.1) 1.2 x10^3/uL (0.0-1.1) Eosinophils # (Auto) 0.2 x10^3/uL (0.0-0.7) 0.1 x10^3/uL (0.0-0.7) Basophils # (Auto) 0.0 x10^3/uL (0.0-0.2) 0.0 x10^3/uL (0.0-0.2) Sodium Level 138 mmol/L (136-145) Potassium Level 3.7 mmol/L (3.5-5.1) Chloride Level 103 mmol/L (98-107) Carbon Dioxide Level 26 mmol/L (21-32) Anion Gap 9 (6-14) Blood Urea Nitrogen 10 mg/dL (8-26) Creatinine 0.7 mg/dL (0.7-1.3) Estimated GFR (Cockcroft-Gault) 139.8 Glucose Level 95 mg/dL (70-99) Calcium Level 9.1 mg/dL (8.5-10.1) Segmented Neutrophils % 46 % (35-66) Band Neutrophils % 2 % (0-9) Lymphocytes % 34 % (24-48) Monocytes % 17 % (0-10) Eosinophils % 1 % (0-5) Platelet Estimate Adequate (ADEQUATE) Laboratory Tests Test 03/05/17 03:45 White Blood Count 5.4 x10^3/uL (4.0-11.0) Red Blood Count 5.20 x10^6/uL (4.30-5.70) Hemoglobin 15.6 g/dL (13.0-17.5) Hematocrit 46.2 % (39.0-53.0) Mean Corpuscular Volume 89 fL (79-100) Mean Corpuscular Hemoglobin 30 pg (25-35) Mean Corpuscular Hemoglobin Concent 34 g/dL (31-37) Red Cell Distribution Width 12.7 % (11.5-14.5) Platelet Count 182 x10^3/uL (140-400) Neutrophils (%) (Auto) 43 % (31-73) Lymphocytes (%) (Auto) 33 % (24-48) Monocytes (%) (Auto) 22 % (0-9) Eosinophils (%) (Auto) 2 % (0-3) Basophils (%) (Auto) 1 % (0-3) Neutrophils # (Auto) 2.3 x10^3uL (1.8-7.7) Lymphocytes # (Auto) 1.8 x10^3/uL (1.0-4.8) Monocytes # (Auto) 1.2 x10^3/uL (0.0-1.1) Eosinophils # (Auto) 0.1 x10^3/uL (0.0-0.7) Basophils # (Auto) 0.0 x10^3/uL (0.0-0.2) Segmented Neutrophils % 46 % (35-66) Band Neutrophils % 2 % (0-9) Lymphocytes % 34 % (24-48) Monocytes % 17 % (0-10) Eosinophils % 1 % (0-5) Platelet Estimate Adequate (ADEQUATE) Problem List Problems Medical Problems: (1) Intractable generalized abdominal pain Status: Acute (2) Vomiting Status: Acute Assessment/Plan noted Tmax 102 hematemesis GI following, EGD? Problems: STEPHANIE GABRIEL MD 03/05/17 1204: SURGICAL PROGRESS NOTE Assessment/Plan Agree with Jennifer's assessment and plan, no new surgical recommendations. Problems: DILLON DUGAN APRN Mar 05, 2017 11:38 STEPHANIE GABRIEL MD Mar 05, 2017 12:04
[2017-03-05] MEDS: IV NORMAL SALINE 1000ML BAG 1,000 ML IV SCH (12:04)
--- NOTE | 2017-03-05 14:31 | PDOC ---
PROGRESS NOTES Chief Complaint Chief Complaint Intractable abd pain ASSESSMENT AND PLAN: . Abd pain: no abn on CT or labs. doubt surgery relatedj, 2/2 gatroparesis likely Constipation: anticipate worsening with narcotics. start miralax hypokalemia plan: fu with sx, no intervention gi consulted abd pain is at sx area (before was LUQ which has no pain) clear liquid, if pain better, advance diet increase dilaudid to 1mg iv prn ivf consider dc reglan qid add erythromycin. replete K dvt ppx EGD today History of Present Illness History of Present Illness ROS: no fever, chills, sob or chest pain c/o severe abd pain, not controlled with iv dilaudid 0.6 cont N/V pt said never filled the pain meds in the pharmacy who refused to give to him with the script, said" ur doc didnot put in the computer" as per pt. c/o staff who didnot give pain meds as needed + GES add reglan , but pt said it made him feels bad vomitimg blood Vitals Vitals Vital Signs Date Time Temp Pulse Resp B/P (MAP) Pulse Ox O2 Delivery O2 Flow Rate FiO2 03/05/17 14:20 Room Air 03/05/17 11:00 99.1 60 18 117/69 (85) 97 99.1 Physical Exam General: Alert, Oriented X3, Cooperative, No acute distress Heart: Regular rate, Normal S1, Normal S2 Lungs: Clear Abdomen: Soft, Other (tender diffusely ) Extremities: No edema Skin: No rashes, No breakdown Labs LABS Laboratory Tests Test 03/05/17 03:45 White Blood Count 5.4 x10^3/uL (4.0-11.0) Red Blood Count 5.20 x10^6/uL (4.30-5.70) Hemoglobin 15.6 g/dL (13.0-17.5) Hematocrit 46.2 % (39.0-53.0) Mean Corpuscular Volume 89 fL (79-100) Mean Corpuscular Hemoglobin 30 pg (25-35) Mean Corpuscular Hemoglobin Concent 34 g/dL (31-37) Red Cell Distribution Width 12.7 % (11.5-14.5) Platelet Count 182 x10^3/uL (140-400) Neutrophils (%) (Auto) 43 % (31-73) Lymphocytes (%) (Auto) 33 % (24-48) Monocytes (%) (Auto) 22 % (0-9) Eosinophils (%) (Auto) 2 % (0-3) Basophils (%) (Auto) 1 % (0-3) Neutrophils # (Auto) 2.3 x10^3uL (1.8-7.7) Lymphocytes # (Auto) 1.8 x10^3/uL (1.0-4.8) Monocytes # (Auto) 1.2 x10^3/uL (0.0-1.1) Eosinophils # (Auto) 0.1 x10^3/uL (0.0-0.7) Basophils # (Auto) 0.0 x10^3/uL (0.0-0.2) Segmented Neutrophils % 46 % (35-66) Band Neutrophils % 2 % (0-9) Lymphocytes % 34 % (24-48) Monocytes % 17 % (0-10) Eosinophils % 1 % (0-5) Platelet Estimate Adequate (ADEQUATE) Assessment and Plan Assessmemt and Plan Problems Medical Problems: (1) Intractable generalized abdominal pain Status: Acute (2) Vomiting Status: Acute Problems: Comment Review of Relevant I have reviewed the following items varinder (where applicable) has been applied. Labs Laboratory Tests Test 03/04/17 04:40 03/05/17 03:45 White Blood Count 5.0 x10^3/uL (4.0-11.0) 5.4 x10^3/uL (4.0-11.0) Red Blood Count 5.15 x10^6/uL (4.30-5.70) 5.20 x10^6/uL (4.30-5.70) Hemoglobin 15.4 g/dL (13.0-17.5) 15.6 g/dL (13.0-17.5) Hematocrit 45.3 % (39.0-53.0) 46.2 % (39.0-53.0) Mean Corpuscular Volume 88 fL (79-100) 89 fL (79-100) Mean Corpuscular Hemoglobin 30 pg (25-35) 30 pg (25-35) Mean Corpuscular Hemoglobin Concent 34 g/dL (31-37) 34 g/dL (31-37) Red Cell Distribution Width 12.8 % (11.5-14.5) 12.7 % (11.5-14.5) Platelet Count 205 x10^3/uL (140-400) 182 x10^3/uL (140-400) Neutrophils (%) (Auto) 46 % (31-73) 43 % (31-73) Lymphocytes (%) (Auto) 33 % (24-48) 33 % (24-48) Monocytes (%) (Auto) 17 % (0-9) 22 % (0-9) Eosinophils (%) (Auto) 3 % (0-3) 2 % (0-3) Basophils (%) (Auto) 1 % (0-3) 1 % (0-3) Neutrophils # (Auto) 2.3 x10^3uL (1.8-7.7) 2.3 x10^3uL (1.8-7.7) Lymphocytes # (Auto) 1.7 x10^3/uL (1.0-4.8) 1.8 x10^3/uL (1.0-4.8) Monocytes # (Auto) 0.9 x10^3/uL (0.0-1.1) 1.2 x10^3/uL (0.0-1.1) Eosinophils # (Auto) 0.2 x10^3/uL (0.0-0.7) 0.1 x10^3/uL (0.0-0.7) Basophils # (Auto) 0.0 x10^3/uL (0.0-0.2) 0.0 x10^3/uL (0.0-0.2) Sodium Level 138 mmol/L (136-145) Potassium Level 3.7 mmol/L (3.5-5.1) Chloride Level 103 mmol/L (98-107) Carbon Dioxide Level 26 mmol/L (21-32) Anion Gap 9 (6-14) Blood Urea Nitrogen 10 mg/dL (8-26) Creatinine 0.7 mg/dL (0.7-1.3) Estimated GFR (Cockcroft-Gault) 139.8 Glucose Level 95 mg/dL (70-99) Calcium Level 9.1 mg/dL (8.5-10.1) Segmented Neutrophils % 46 % (35-66) Band Neutrophils % 2 % (0-9) Lymphocytes % 34 % (24-48) Monocytes % 17 % (0-10) Eosinophils % 1 % (0-5) Platelet Estimate Adequate (ADEQUATE) Laboratory Tests Test 03/05/17 03:45 White Blood Count 5.4 x10^3/uL (4.0-11.0) Red Blood Count 5.20 x10^6/uL (4.30-5.70) Hemoglobin 15.6 g/dL (13.0-17.5) Hematocrit 46.2 % (39.0-53.0) Mean Corpuscular Volume 89 fL (79-100) Mean Corpuscular Hemoglobin 30 pg (25-35) Mean Corpuscular Hemoglobin Concent 34 g/dL (31-37) Red Cell Distribution Width 12.7 % (11.5-14.5) Platelet Count 182 x10^3/uL (140-400) Neutrophils (%) (Auto) 43 % (31-73) Lymphocytes (%) (Auto) 33 % (24-48) Monocytes (%) (Auto) 22 % (0-9) Eosinophils (%) (Auto) 2 % (0-3) Basophils (%) (Auto) 1 % (0-3) Neutrophils # (Auto) 2.3 x10^3uL (1.8-7.7) Lymphocytes # (Auto) 1.8 x10^3/uL (1.0-4.8) Monocytes # (Auto) 1.2 x10^3/uL (0.0-1.1) Eosinophils # (Auto) 0.1 x10^3/uL (0.0-0.7) Basophils # (Auto) 0.0 x10^3/uL (0.0-0.2) Segmented Neutrophils % 46 % (35-66) Band Neutrophils % 2 % (0-9) Lymphocytes % 34 % (24-48) Monocytes % 17 % (0-10) Eosinophils % 1 % (0-5) Platelet Estimate Adequate (ADEQUATE) Medications Current Medications Sodium Chloride 1,000 ml @ 1,000 mls/hr 1X ONCE IV Last administered on 03/01t 13:17; Start 03/01/17 at 13:00; Stop 03/01/17 at 13:59; Status DC Ondansetron HCl (Zofran) 4 mg 1X ONCE IV Last administered on 03/01/17 13:17 ; Start 03/01/17 at 13:00; Stop 03/01/17 at 13:02; Status DC Hydromorphone HCl (Dilaudid) 1 mg 1X ONCE IV Last administered on 03/01/17 13:19; Start 03/01/17 at 13:00; Stop 03/01/17 at 13:02; Status DC Hydromorphone HCl (Dilaudid) 1 mg 1X ONCE IV Last administered on 03/01/17 14:14; Start 03/01/17 at 14:15; Stop 03/01/17 at 14:16; Status DC Ondansetron HCl (Zofran) 4 mg 1X ONCE IV Last administered on 03/01/17 14:14 ; Start 03/01/17 at 14:15; Stop 03/01/17 at 14:16; Status DC Ondansetron HCl (Zofran) 4 mg PRN Q8HRS PRN IV NAUSEA/VOMITING Last administered on 03/01/17 17:51; Start 03/01/17 at 16:00; Stop 03/02/17 at 15 :59; Status DC Fentanyl Citrate (Fentanyl 2ml Vial) 50 mcg PRN Q2HR PRN IV PAIN Last administered on 03/02/17 00:31; Start 03/01/17 at 16:00; Stop 03/02/17 at 15 :59; Status DC Sodium Chloride 1,000 ml @ 150 mls/hr Q6H40M IV Last administered on 14:27; Start 03/01/17 at 16:00; Stop 03/02/17 at 15:59; Status DC Hydromorphone HCl (Dilaudid) 1.2 mg PRN Q2HR PRN IVP PAIN Last administered on 03/02/17 19:25; Start 03/01/17 at 17:30; Stop 03/02/17 at 19:52; Status DC Ondansetron HCl (Zofran) 8 mg PRN Q8HRS PRN IV NAUSEA/VOMITING Last administered on 03/03/17 00:02; Start 03/01/17 at 17:30 Lorazepam (Ativan) 1 mg PRN Q4HRS PRN IV ANXIETY / AGITATION Last administered on 03/02/17 00:30; Start 03/01/17 at 17:30; Stop 03/02/17 at 19:52; Status DC Hydromorphone HCl (Dilaudid) 0.6 mg PRN Q2HR PRN IVP PAIN Last administered on 03/03/17 08:15; Start 03/02/17 at 20:00; Stop 03/03/17 at 11:31; Status DC Lorazepam (Ativan) 0.5 mg PRN Q4HRS PRN IV ANXIETY / AGITATION Last administered on 03/05/17 10:12; Start 03/02/17 at 20:00 Polyethylene Glycol (miraLAX PACKET) 17 gm PRN BID PRN PO CONSTIPATION Last administered on 03/03/17 08:14; Start 03/02/17 at 20:00 Hydromorphone HCl (Dilaudid) 1 mg PRN Q2HR PRN IVP PAIN severe Last administered on 03/03/17 12:12; Start 03/03/17 at 11:30; Stop 03/03/17 at 13 :58; Status DC Acetaminophen (Tylenol) 650 mg PRN Q6HRS PRN PO FEVER Last administered on 21:15; Start 03/03/17 at 11:30 Ondansetron HCl (Zofran) 4 mg PRN Q6HRS PRN IV NAUSEA/VOMITING; Start at 11:30 Hydralazine HCl (Apresoline Inj) 10 mg PRN Q4HRS PRN IVP ELEVATED BP, SEE COMMENTS; Start 03/03/17 at 11:30 Docusate Sodium (Colace) 100 mg PRN DAILY PRN PO CONSTIPATION; Start 03/03/17 at 11:30 Oxycodone/ Acetaminophen (Percocet 5/325) 1 tab PRN Q4HRS PRN PO MILD PAIN Last administered on 03/04/17 22:40; Start 03/03/17 at 11:30 Sodium Chloride 1,000 ml @ 75 mls/hr [id number] IV Last administered on 12:04; Start 03/03/17 at 11:30 Potassium Chloride (KCl Oral Soln) 40 meq 1X ONCE PO Last administered on 12:12; Start 03/03/17 at 11:45; Stop 03/03/17 at 11:46; Status DC Hydromorphone HCl (Dilaudid) 1 mg PRN Q3HRS PRN IVP PAIN severe Last administered on 03/04/17 11:19; Start 03/03/17 at 14:00; Stop 03/04/17 at 16 :36; Status DC Famotidine (Pepcid Vial) 20 mg BID IVP Last administered on 03/05/17 09:01; Start 03/03/17 at 21:00 Fentanyl Citrate (Fentanyl 2ml Vial) 50 mcg 1X ONCE IV Last administered on 11:06; Start 03/04/17 at 10:45; Stop 03/04/17 at 10:51; Status DC Metoclopramide HCl (Reglan Vial) 10 mg QIDACHS IV Last administered on 11:07; Start 03/04/17 at 11:30 Fentanyl Citrate (Fentanyl 2ml Vial) 75 mcg PRN Q3HRS PRN IV PAIN Last administered on 03/04/17 21:04; Start 03/04/17 at 16:30; Stop 03/04/17 at 23 :59; Status DC Fentanyl Citrate (Fentanyl 2ml Vial) 100 mcg PRN Q2HRS PRN IV SEVERE PAIN Last administered on 03/05/17 11:52; Start 03/05/17 at 00:00 Hydromorphone HCl (Dilaudid) 1 mg PRN Q4HRS PRN IV MODERATE PAIN Last administered on 03/05/17 14:20; Start 03/05/17 at 10:15 Active Scripts Active No Active Prescriptions or Reported Medications Vitals/I & O Vital Sign - Last 24 Hours 03/04/17 03/04/17 03/04/17 03/04/17 15:13 17:39 18:58 19:00 Temp 97.9 102.3 97.9 102.3 Pulse 86 94 Resp 20 18 B/P (MAP) 129/87 (101) 136/95 (109) Pulse Ox 96 96 96 99 O2 Delivery Room Air Room Air Room Air 03/04/17 03/04/17 03/04/17 03/04/17 20:00 21:04 21:35 22:40 Resp 14 16 16 Pulse Ox 96 O2 Delivery Room Air Room Air Room Air Room Air 03/04/17 03/04/17 03/05/17 03/05/17 23:00 23:45 00:14 00:45 Temp 100.6 100.6 Pulse 95 Resp 18 16 15 12 B/P (MAP) 112/56 (74) Pulse Ox 96 O2 Delivery Room Air Room Air 03/05/17 03/05/17 03/05/17 03/05/17 07:00 09:01 09:15 11:00 Temp 98.5 99.1 98.5 99.1 Pulse 54 60 Resp 18 18 B/P (MAP) 106/60 (75) 117/69 (85) Pulse Ox 96 97 O2 Delivery Room Air Room Air Room Air Room Air 03/05/17 03/05/17 03/05/17 11:52 12:23 14:20 O2 Delivery Room Air Room Air Room Air Intake and Output 03/04/17 03/04/17 03/05/17 14:59 22:59 06:59 Intake Total 1116 ml Balance 1116 ml BRENNAN GAONA MD Mar 05, 2017 14:31
[2017-03-05 15:00] VITALS: BP 124/82
[2017-03-05] MEDS: ERYTHROMYCIN LACT 250 MG in IV NORMAL SALINE 100ML 100 ML IV SCH (15:00)
[2017-03-05] MEDS ORDERED: OXYC1TAB7 PO (15:34)
--- NOTE | 2017-03-05 15:42 | PDOC ---
G I PROGRESS NOTE Subjective "Hematemesis" last night. Showed staff blood in toilet; episode not witnessed. Few complaints today; wants to eat and wonders when can go home. Thinks Reglan gave "jitters". Physical Exam Lungs clear. RRR Abdomen soft, not distended. Not particularly tender. Review of Relevant I have reviewed the following items varinder (where applicable) has been applied. Labs Laboratory Tests Test 03/04/17 04:40 03/05/17 03:45 White Blood Count 5.0 x10^3/uL (4.0-11.0) 5.4 x10^3/uL (4.0-11.0) Red Blood Count 5.15 x10^6/uL (4.30-5.70) 5.20 x10^6/uL (4.30-5.70) Hemoglobin 15.4 g/dL (13.0-17.5) 15.6 g/dL (13.0-17.5) Hematocrit 45.3 % (39.0-53.0) 46.2 % (39.0-53.0) Mean Corpuscular Volume 88 fL (79-100) 89 fL (79-100) Mean Corpuscular Hemoglobin 30 pg (25-35) 30 pg (25-35) Mean Corpuscular Hemoglobin Concent 34 g/dL (31-37) 34 g/dL (31-37) Red Cell Distribution Width 12.8 % (11.5-14.5) 12.7 % (11.5-14.5) Platelet Count 205 x10^3/uL (140-400) 182 x10^3/uL (140-400) Neutrophils (%) (Auto) 46 % (31-73) 43 % (31-73) Lymphocytes (%) (Auto) 33 % (24-48) 33 % (24-48) Monocytes (%) (Auto) 17 % (0-9) 22 % (0-9) Eosinophils (%) (Auto) 3 % (0-3) 2 % (0-3) Basophils (%) (Auto) 1 % (0-3) 1 % (0-3) Neutrophils # (Auto) 2.3 x10^3uL (1.8-7.7) 2.3 x10^3uL (1.8-7.7) Lymphocytes # (Auto) 1.7 x10^3/uL (1.0-4.8) 1.8 x10^3/uL (1.0-4.8) Monocytes # (Auto) 0.9 x10^3/uL (0.0-1.1) 1.2 x10^3/uL (0.0-1.1) Eosinophils # (Auto) 0.2 x10^3/uL (0.0-0.7) 0.1 x10^3/uL (0.0-0.7) Basophils # (Auto) 0.0 x10^3/uL (0.0-0.2) 0.0 x10^3/uL (0.0-0.2) Sodium Level 138 mmol/L (136-145) Potassium Level 3.7 mmol/L (3.5-5.1) Chloride Level 103 mmol/L (98-107) Carbon Dioxide Level 26 mmol/L (21-32) Anion Gap 9 (6-14) Blood Urea Nitrogen 10 mg/dL (8-26) Creatinine 0.7 mg/dL (0.7-1.3) Estimated GFR (Cockcroft-Gault) 139.8 Glucose Level 95 mg/dL (70-99) Calcium Level 9.1 mg/dL (8.5-10.1) Segmented Neutrophils % 46 % (35-66) Band Neutrophils % 2 % (0-9) Lymphocytes % 34 % (24-48) Monocytes % 17 % (0-10) Eosinophils % 1 % (0-5) Platelet Estimate Adequate (ADEQUATE) Laboratory Tests Test 03/05/17 03:45 White Blood Count 5.4 x10^3/uL (4.0-11.0) Red Blood Count 5.20 x10^6/uL (4.30-5.70) Hemoglobin 15.6 g/dL (13.0-17.5) Hematocrit 46.2 % (39.0-53.0) Mean Corpuscular Volume 89 fL (79-100) Mean Corpuscular Hemoglobin 30 pg (25-35) Mean Corpuscular Hemoglobin Concent 34 g/dL (31-37) Red Cell Distribution Width 12.7 % (11.5-14.5) Platelet Count 182 x10^3/uL (140-400) Neutrophils (%) (Auto) 43 % (31-73) Lymphocytes (%) (Auto) 33 % (24-48) Monocytes (%) (Auto) 22 % (0-9) Eosinophils (%) (Auto) 2 % (0-3) Basophils (%) (Auto) 1 % (0-3) Neutrophils # (Auto) 2.3 x10^3uL (1.8-7.7) Lymphocytes # (Auto) 1.8 x10^3/uL (1.0-4.8) Monocytes # (Auto) 1.2 x10^3/uL (0.0-1.1) Eosinophils # (Auto) 0.1 x10^3/uL (0.0-0.7) Basophils # (Auto) 0.0 x10^3/uL (0.0-0.2) Segmented Neutrophils % 46 % (35-66) Band Neutrophils % 2 % (0-9) Lymphocytes % 34 % (24-48) Monocytes % 17 % (0-10) Eosinophils % 1 % (0-5) Platelet Estimate Adequate (ADEQUATE) Hemoglobin stable. Medications Current Medications Sodium Chloride 1,000 ml @ 1,000 mls/hr 1X ONCE IV Last administered on 03/01 13:17; Start 03/01/17 at 13:00; Stop 03/01/17 at 13:59; Status DC Ondansetron HCl (Zofran) 4 mg 1X ONCE IV Last administered on 03/01/17 13:17 ; Start 03/01/17 at 13:00; Stop 03/01/17 at 13:02; Status DC Hydromorphone HCl (Dilaudid) 1 mg 1X ONCE IV Last administered on 03/01/17 13:19; Start 03/01/17 at 13:00; Stop 03/01/17 at 13:02; Status DC Hydromorphone HCl (Dilaudid) 1 mg 1X ONCE IV Last administered on 03/01/17 14:14; Start 03/01/17 at 14:15; Stop 03/01/17 at 14:16; Status DC Ondansetron HCl (Zofran) 4 mg 1X ONCE IV Last administered on 03/01/17 14:14 ; Start 03/01/17 at 14:15; Stop 03/01/17 at 14:16; Status DC Ondansetron HCl (Zofran) 4 mg PRN Q8HRS PRN IV NAUSEA/VOMITING Last administered on 03/01/17 17:51; Start 03/01/17 at 16:00; Stop 03/02/17 at 15 :59; Status DC Fentanyl Citrate (Fentanyl 2ml Vial) 50 mcg PRN Q2HR PRN IV PAIN Last administered on 03/02/17 00:31; Start 03/01/17 at 16:00; Stop 03/02/17 at 15 :59; Status DC Sodium Chloride 1,000 ml @ 150 mls/hr Q6H40M IV Last administered on 14:27; Start 03/01/17 at 16:00; Stop 03/02/17 at 15:59; Status DC Hydromorphone HCl (Dilaudid) 1.2 mg PRN Q2HR PRN IVP PAIN Last administered on 03/02/17 19:25; Start 03/01/17 at 17:30; Stop 03/02/17 at 19:52; Status DC Ondansetron HCl (Zofran) 8 mg PRN Q8HRS PRN IV NAUSEA/VOMITING Last administered on 03/03/17 00:02; Start 03/01/17 at 17:30 Lorazepam (Ativan) 1 mg PRN Q4HRS PRN IV ANXIETY / AGITATION Last administered on 03/02/17 00:30; Start 03/01/17 at 17:30; Stop 03/02/17 at 19:52; Status DC Hydromorphone HCl (Dilaudid) 0.6 mg PRN Q2HR PRN IVP PAIN Last administered on 03/03/17 08:15; Start 03/02/17 at 20:00; Stop 03/03/17 at 11:31; Status DC Lorazepam (Ativan) 0.5 mg PRN Q4HRS PRN IV ANXIETY / AGITATION Last administered on 03/05/17 10:12; Start 03/02/17 at 20:00 Polyethylene Glycol (miraLAX PACKET) 17 gm PRN BID PRN PO CONSTIPATION Last administered on 03/03/17 08:14; Start 03/02/17 at 20:00 Hydromorphone HCl (Dilaudid) 1 mg PRN Q2HR PRN IVP PAIN severe Last administered on 03/03/17 12:12; Start 03/03/17 at 11:30; Stop 03/03/17 at 13 :58; Status DC Acetaminophen (Tylenol) 650 mg PRN Q6HRS PRN PO FEVER Last administered on 21:15; Start 03/03/17 at 11:30 Ondansetron HCl (Zofran) 4 mg PRN Q6HRS PRN IV NAUSEA/VOMITING; Start at 11:30 Hydralazine HCl (Apresoline Inj) 10 mg PRN Q4HRS PRN IVP ELEVATED BP, SEE COMMENTS; Start 03/03/17 at 11:30 Docusate Sodium (Colace) 100 mg PRN DAILY PRN PO CONSTIPATION; Start 03/03/17 at 11:30 Oxycodone/ Acetaminophen (Percocet 5/325) 1 tab PRN Q4HRS PRN PO MILD PAIN Last administered on 03/04/17 22:40; Start 03/03/17 at 11:30 Sodium Chloride 1,000 ml @ 75 mls/hr [id number] IV Last administered on 12:04; Start 03/03/17 at 11:30 Potassium Chloride (KCl Oral Soln) 40 meq 1X ONCE PO Last administered on 12:12; Start 03/03/17 at 11:45; Stop 03/03/17 at 11:46; Status DC Hydromorphone HCl (Dilaudid) 1 mg PRN Q3HRS PRN IVP PAIN severe Last administered on 03/04/17 11:19; Start 03/03/17 at 14:00; Stop 03/04/17 at 16 :36; Status DC Famotidine (Pepcid Vial) 20 mg BID IVP Last administered on 03/05/17 09:01; Start 03/03/17 at 21:00 Fentanyl Citrate (Fentanyl 2ml Vial) 50 mcg 1X ONCE IV Last administered on 11:06; Start 03/04/17 at 10:45; Stop 03/04/17 at 10:51; Status DC Metoclopramide HCl (Reglan Vial) 10 mg QIDACHS IV Last administered on 11:07; Start 03/04/17 at 11:30 Fentanyl Citrate (Fentanyl 2ml Vial) 75 mcg PRN Q3HRS PRN IV PAIN Last administered on 03/04/17 21:04; Start 03/04/17 at 16:30; Stop 03/04/17 at 23 :59; Status DC Fentanyl Citrate (Fentanyl 2ml Vial) 100 mcg PRN Q2HRS PRN IV SEVERE PAIN Last administered on 03/05/17 11:52; Start 03/05/17 at 00:00 Hydromorphone HCl (Dilaudid) 1 mg PRN Q4HRS PRN IV MODERATE PAIN Last administered on 03/05/17 14:20; Start 03/05/17 at 10:15 Erythromycin Lactobionate 250 mg/Sodium Chloride 100 ml @ 100 mls/hr Q6HRS IV ; Start 03/05/17 at 15:00 Active Scripts Active No Active Prescriptions or Reported Medications Vitals/I & O Vital Sign - Last 24 Hours 03/04/17 03/04/17 03/04/17 03/04/17 17:39 18:58 19:00 20:00 Temp 102.3 102.3 Pulse 94 Resp 18 B/P (MAP) 136/95 (109) Pulse Ox 96 96 99 O2 Delivery Room Air Room Air Room Air 03/04/17 03/04/17 03/04/17 03/04/17 21:04 21:35 22:40 23:00 Temp 100.6 100.6 Pulse 95 Resp 18 B/P (MAP) 112/56 (74) Pulse Ox 96 96 O2 Delivery Room Air Room Air Room Air Room Air 03/04/17 03/05/17 03/05/17 03/05/17 23:45 00:14 00:45 07:00 Temp 98.5 98.5 Pulse 54 Resp 16 15 12 18 B/P (MAP) 106/60 (75) Pulse Ox 96 O2 Delivery Room Air Room Air 03/05/17 03/05/17 03/05/17 03/05/17 09:01 09:15 11:00 11:52 Temp 99.1 99.1 Pulse 60 Resp 18 B/P (MAP) 117/69 (85) Pulse Ox 97 O2 Delivery Room Air Room Air Room Air Room Air 03/05/17 03/05/17 03/05/17 12:23 14:20 15:19 O2 Delivery Room Air Room Air Room Air Intake and Output 03/04/17 03/04/17 03/05/17 15:00 23:00 07:00 Intake Total 1116 ml Balance 1116 ml Problem List Problems Medical Problems: (1) Intractable generalized abdominal pain Status: Acute (2) Vomiting Status: Acute Assessment Bleeding seems inconsequential. Had planned on EGD, but anesthesia not available and would not do with conscious sedation only. Doubtful would be meaningful lesion clinically. Plan of Care: Continue current Tx, Mgmt Plan of Care Note OK to try feeding. OK to stop Reglan. OK to dismiss when eating; would give PPI or recommend OTC. FERNIE GARAY MD Mar 05, 2017 15:42
--- NOTE | 2017-03-05 15:44 | PDOC3 ---
Discharge Summary [facility] Date of Admission: Mar 01, 2017 Discharge Date: Mar 05, 2017 Admitting Diagnosis Abd pain: with recent meckles diverticular sx and comfort, no abn on CT or labs. doubt surgery relatedj, 2/2 gatroparesis likely Constipation: anticipate worsening with narcotics. start miralax hypokalemia Problems: Final Diagnosis CONSULTS sx gi Brief Hospital Course Mr. Jiang is a 21 old M, was just dced a few days ago for abd pain, got appendectomy and meckles diverticular sx. His chronic LUQ pain is gone, but has middle abd pain where is the sx area. sx consult, no intervention. pt cont haviing n/v, abd pain, +GES for gastraparesis, but pt said reglan made him sick. pt cont ahving pain, requires dilaudid, fentanyl, but also asks for eat. want to go home today. Supposed to get EGD but cannot not do it due to OR anesthesia issues. dc home with ativan 0.5mg po 10pills, percocet 5mg 10pills. pt has previous script an said pharmacy refused to give to him dc if eats ok as per GI. dc time 35min. Patient History: FHx: diabetes mellitus Problems: Disposition home CONDITION AT DISCHARGE: Improved Diet gi soft Scheduled PRN Oxycodone Hcl/Acetaminophen (Oxycodone-Acetaminophen 5-325), 1 TAB PO PRN Q4HRS PRN for MILD PAIN Follow Up gi in 2 weeks BRENNAN GAONA MD Mar 05, 2017 15:44
[2017-03-05] MEDS: oxyCODONE/APAP 5/325 1 TAB TABLET PO PRN (18:19)
== END 2017-03-05 18:20 | disposition home or self-care (01) | DRG 392 ==
LOC: ER 12:21 → 5 NORTH 15:02 → 4 NORTH 03-04 12:02
PROVIDERS: ADMIT Internal Medicine; ATTEND Internal Medicine
DX: K31.84 Gastroparesis (principal); K92.0 Hematemesis; K30 Functional dyspepsia; E87.6 Hypokalemia; W01.0XXA Fall on same level from slipping, tripping and stumbling without subsequent striking against object, initial encounter; K59.00 Constipation, unspecified; F31.9 Bipolar disorder, unspecified; F41.9 Anxiety disorder, unspecified; K21.9 Gastro-esophageal reflux disease without esophagitis; K59.03 Drug induced constipation; T40.605A Adverse effect of unspecified narcotics, initial encounter; G56.00 Carpal tunnel syndrome, unspecified upper limb; F12.90 Cannabis use, unspecified, uncomplicated; Y93.01 Activity, walking, marching and hiking; Y92.481 Parking lot as the place of occurrence of the external cause; Y99.8 Other external cause status; Z82.49 Family history of ischemic heart disease and other diseases of the circulatory system; Z90.49 Acquired absence of other specified parts of digestive tract; Z83.3 Family history of diabetes mellitus; Y92.89 Other specified places as the place of occurrence of the external cause; Z88.8 Allergy status to other drugs, medicaments and biological substances
CPT/HCPCS: 36415; 78264; 80048; 80053; 81001; 83690; 85007; 85025; 96361; 96374; 96375; 96376; A9541; J1170; J2060; J2405; J2765; J3010; J7030; S0028; 99285-25